=== PATIENT | female | born 1980 | race Asian ===

== ENCOUNTER 2019-05-15 09:48 | Emergency (ER) | payer OTHER ==
[~2019-05-15] VITALS: Ht 162.6 cm; Wt 47.2 kg
[2019-05-15] MEDS ORDERED: ITRA100 PO (10:07)
[2019-05-15] MEDS ORDERED: ESOM20 PO (10:07)
[2019-05-15] MEDS ORDERED: ACYC400 PO (10:08)
[2019-05-15] MEDS ORDERED: Bactrim Ds Tab1 EACH PO (10:08)
[2019-05-15 11:45] LABS: Alanine Aminotransfer (ALT/SGP 27 U/L (12-78); Albumin, Blood 3.8 g/dL (3.4-5.0); Alk Phos 60 U/L (50-136); Anion Gap 5 mmol/L (6-16); Aspartate Aminotrans (AST/SGOT 16 U/L (12-37); Bilirubin, Total 0.3 mg/dL (0.1-1.0); Blood Urea Nitrogen 15 mg/dL (8-24); CO2, Blood 33 mmol/L (21-32); Calcium, Blood 9.6 mg/dL (8.5-10.1); Chloride, Blood 106 mmol/L (98-108); Creatinine, Blood 0.65 mg/dL (0.40-1.00); Globulin, Blood 3.7 g/dL (2.2-4.0); Glomerular Filtration Rate >60 (60-); Glucose, Blood 101 mg/dL (70-99); Potassium, Blood 3.9 mmol/L (3.5-5.5); Sodium, Blood 144 mmol/L (136-145); Total Protein, Blood 7.5 g/dL (6.4-8.2)
[2019-05-15 12:14] LABS: International Normalized Ratio 0.96; Prothrombin Time Results 10.2 Sec (9.7-11.5)
== END 2019-05-15 13:26 | disposition home or self-care (01) ==
LOC: ER 09:48
PROVIDERS: Emergency Medicine
DX: D61.818 Other pancytopenia (principal); C95.90 Leukemia, unspecified not having achieved remission; Z91.048 Other nonmedicinal substance allergy status; Z88.8 Allergy status to other drugs, medicaments and biological substances; Z79.899 Other long term (current) drug therapy
CPT/HCPCS: 36415; 36430; 80053; 85025; 85384; 85610; 86900; 86901; 99283-25; P9035

== ENCOUNTER 2019-05-18 04:21 | Emergency (ER) | payer OTHER ==
[~2019-05-18] VITALS: Ht 162.6 cm; Wt 46.5 kg
[~2019-05-18 04:21] MED LIST: ACYC400 PO; Bactrim Ds Tab1 EACH PO; ESOM20 PO; ITRA100 PO
[2019-05-18] MEDS ORDERED: Percocet 5-3251 EACH PO (05:22)
== END 2019-05-18 05:54 | disposition home or self-care (01) ==
LOC: ER 04:21
DX: G89.29 Other chronic pain (principal); M54.9 Dorsalgia, unspecified; C95.90 Leukemia, unspecified not having achieved remission; Z88.8 Allergy status to other drugs, medicaments and biological substances; Z79.899 Other long term (current) drug therapy
CPT/HCPCS: 96372; 99283-25; J1170

== ENCOUNTER 2019-05-21 14:57 | Day surgery (SDC) | payer OTHER ==
[2019-05-21 09:33] LABS: Hematocrit 28.2 % (33.0-51.0); Hemoglobin 9.1 g/dL (11.5-16.0); Mean Corpuscular HGB 31.2 pg (26.0-34.0); Mean Corpuscular HGB Conc 32.3 g/dL (31.5-36.5); Mean Corpuscular Volume 97 fL (80-100); RDW Coefficient Variation 14.7 % (11.7-14.2); RDW Standard Deviation 51.7 fL (35.1-46.3); Red Blood Cell Count 2.92 M/mm3 (3.80-5.20)
[2019-05-21 09:39] LABS: Mean Platelet Volume 14.7 fL (9.1-12.4)
[2019-05-21 09:41] LABS: Platelet Count 6 K/mm3 (150-400)
[2019-05-21 10:25] LABS: BASOPHILS PERCENT MAN 0 % (0-2); BLASTS PERCENT MAN 22 % (0-0); EOSINOPHILS PERCENT MAN 0 % (0-6); LYMPHOCYTES ABSOLUTE MAN 4.06 K/mm3 (0.84-5.20); LYMPHOCYTES PERCENT MAN 70 % (21-46); MONOCYTES ABSOLUTE MAN 0.11 K/mm3 (0.16-1.47); MONOCYTES PERCENT MAN 2 % (4-13); NEUTROPHILS ABSOLUTE MAN 0.34 K/mm3 (1.96-9.15); SEG NEUTROPHILS PERCENT MAN 6 % (41-73); TOTAL CELLS COUNTED 100
[~2019-05-21 14:57] MED LIST changes: +Percocet 5-3251 EACH PO
== END 2019-05-21 17:25 | disposition home or self-care (01) ==
LOC: ATC 14:57 → EDSTATUS 14:58 → ATC 17:25
PROVIDERS: Internal Medicine Hematology & Oncology
PROC: 30233R1 Transfusion of Nonautologous Platelets into Peripheral Vein, Percutaneous Approach (ICD-10-PCS; principal; 2019-05-21)
DX: C92.02 Acute myeloblastic leukemia, in relapse (principal)
CPT/HCPCS: 36415; 36430; 85025; 86900; 86901; J7050; P9035

== ENCOUNTER 2019-06-07 11:27 | Inpatient (IN) | payer OTHER ==
[~2019-06-07] VITALS: Ht 162.6 cm; Wt 48.4 kg
[2019-06-07 12:38] LABS: International Normalized Ratio 1.04
[2019-06-07 12:40] LABS: Alanine Aminotransfer (ALT/SGP 24 U/L (12-78); Albumin, Blood 2.9 g/dL (3.4-5.0); Albumin/Globulin Ratio 0.9 (0.8-1.8); Alk Phos 55 U/L (50-136); Anion Gap 7 mmol/L (6-16); Aspartate Aminotrans (AST/SGOT 10 U/L (12-37); Bilirubin, Total 0.5 mg/dL (0.1-1.0); Blood Urea Nitrogen 11 mg/dL (8-24); Bun/Creatinine Ratio 17.1 (12.0-20.0); CO2, Blood 29 mmol/L (21-32); Calcium, Blood 8.7 mg/dL (8.5-10.1); Chloride, Blood 104 mmol/L (98-108); Creatinine, Blood 0.64 mg/dL (0.40-1.00); Globulin, Blood 3.4 g/dL (2.2-4.0); Glomerular Filtration Rate >60 (60-); Glucose, Blood 161 mg/dL (70-99); Potassium, Blood 3.5 mmol/L (3.5-5.5); Sodium, Blood 140 mmol/L (136-145); Total Protein, Blood 6.3 g/dL (6.4-8.2)
[2019-06-07 12:43] LABS: Hematocrit 23.1 % (33.0-51.0); Hemoglobin 7.8 g/dL (11.5-16.0); Mean Corpuscular HGB 29.7 pg (26.0-34.0); Mean Corpuscular HGB Conc 33.8 g/dL (31.5-36.5); RDW Coefficient Variation 14.9 % (11.7-14.2); RDW Standard Deviation 47.8 fL (35.1-46.3); Red Blood Cell Count 2.63 M/mm3 (3.80-5.20)
[2019-06-07 12:45] LABS: BASOPHILS PERCENT AUTO 0 % (0-2); EOSINOPHILS PERCENT AUTO 0 % (0-6); IMMATURE GRAN ABSOLUTE AUTO 0.01 K/mm3 (0.00-0.10); IMMATURE GRAN PERCENT AUTO 6 % (0-1); LYMPHOCYTES ABSOLUTE AUTO 0.07 K/mm3 (0.84-5.20); LYMPHOCYTES PERCENT AUTO 44 % (21-46); MONOCYTES ABSOLUTE AUTO 0.01 K/mm3 (0.16-1.47); MONOCYTES PERCENT AUTO 6 % (4-13); Mean Corpuscular Volume 88 fL (80-100); NEUTROPHILS ABSOLUTE AUTO 0.07 K/mm3 (1.96-9.15); NEUTROPHILS PERCENT AUTO 44 % (41-73); Platelet Count 31 K/mm3 (150-400)
[2019-06-07 12:47] LABS: White Blood Cell Count 0.16 K/mm3 (4.00-11.30)
[2019-06-07 13:20] LABS: Source, Urine Catheter
[2019-06-07 13:26] LABS: Bilirubin, Urine Neg (Neg); Blood, Urine 1+ (Neg); Glucose Qualitative, Urine Neg (Neg); Ketones, Urine Neg (Neg); Leukocyte Esterase, Urine Neg (Neg); Nitrite, Urine Neg (Neg); Protein, Urine Neg (Neg); Specific Gravity, Urine 1.015 (1.003-1.022); Urobilinogen, Urine NORM (Normal)
[2019-06-07 13:41] LABS: Appearance, Urine Clear (Clear); Color, Urine Yellow (P-Yellow)
[2019-06-07] MEDS ORDERED: DEXA4 PO (15:19)
[2019-06-07] MEDS ORDERED: NOXAFIL100 MG PO (15:19)
[2019-06-07] MEDS ORDERED: ONDA8 PO (15:19)
[2019-06-07] MEDS ORDERED: PROC5 PO (15:20)
[2019-06-07] MEDS ORDERED: LEVFLO500 PO (15:20)
[2019-06-07] MEDS ORDERED: DIBU30TO PR (15:22)
[2019-06-07] MEDS ORDERED: Senna Plus Tab1 EACH PO (15:23)
[2019-06-07 16:45] LABS: Bacteria Rare /hpf; Red Blood Cells, Urine 0-2 /hpf (0-2); Squamous Epithelial Cells Not Seen /hpf (Few)
--- NOTE | 2019-06-07 16:54 | NUR ---
ADMIT TO FLOOR ARRIVED TO FLOOR VIA STRETCHER ACCOMPANIED BY SPOUSE. ORIENTED TO ROOM. CALL LIGHT WITHIN REACH. BED LOW AND IN LOCKED POSITION.
--- NOTE | 2019-06-07 17:57 | NUR ---
DISCHARGE NOTE NEW ADMIT THIS P.M. FROM ED. CHEMO 2 DAYS AGO. ORIGINAL DX LEUKEMIA IN 2016 IN [place]. MOVED TO STATES TO OBTAIN TREATMENT. NEUTROPENIC PRECAUTIONS. EATING AND DRINKING WELL. OX4 AND INDEPENDENT IN ROOM. SCHEDULED FOR LABS AND POSSIBLE TRANSFUSIONS TOMORROW WITH DR. PIMENTEL. I CALLED DR. CARRASQUILLO OFFICE AND LEFT VM THAT PATIENT WAS AT [facility]. DENIES ANY PAIN. AWAITING CLINICAL TRIAL AT [facility] IN FIRST PART OF THIS MONTH.
[2019-06-08 05:11] LABS: Hemoglobin 6.3 g/dL (11.5-16.0); Mean Corpuscular HGB 29.9 pg (26.0-34.0); Mean Corpuscular HGB Conc 33.2 g/dL (31.5-36.5); Mean Corpuscular Volume 90 fL (80-100); Mean Platelet Volume 9.4 fL (9.1-12.4); RDW Coefficient Variation 14.9 % (11.7-14.2); RDW Standard Deviation 49.1 fL (35.1-46.3); Red Blood Cell Count 2.11 M/mm3 (3.80-5.20)
[2019-06-08 05:13] LABS: BASOPHILS PERCENT AUTO 0 % (0-2); EOSINOPHILS PERCENT AUTO 0 % (0-6); IMMATURE GRAN PERCENT AUTO 0 % (0-1); LYMPHOCYTES PERCENT AUTO 44 % (21-46); MONOCYTES ABSOLUTE AUTO 0.02 K/mm3 (0.16-1.47); MONOCYTES PERCENT AUTO 9 % (4-13); NEUTROPHILS ABSOLUTE AUTO 0.11 K/mm3 (1.96-9.15); NEUTROPHILS PERCENT AUTO 48 % (41-73)
[2019-06-08 05:15] LABS: Platelet Count 19 K/mm3 (150-400); White Blood Cell Count 0.23 K/mm3 (4.00-11.30)
[2019-06-08 05:38] LABS: Anion Gap 3 mmol/L (6-16); Blood Urea Nitrogen 9 mg/dL (8-24); Bun/Creatinine Ratio 13.8 (12.0-20.0); CO2, Blood 28 mmol/L (21-32); Chloride, Blood 108 mmol/L (98-108); Creatinine, Blood 0.65 mg/dL (0.40-1.00); Glomerular Filtration Rate >60 (60-); Glucose, Blood 100 mg/dL (70-99); Potassium, Blood 3.6 mmol/L (3.5-5.5); Sodium, Blood 139 mmol/L (136-145)
--- NOTE | 2019-06-08 07:21 | NUR ---
SHIFT SUMMARY PT A/O INDEPENDENT NO C/O PAIN. ORAL TEMP 103.0 MEDICATED C TYLENOL. HAD BEEN BUNDLED IN BLANKETS AND HEAT TURNED UP HIGH DUE TO C/O BEING COLD. UNCOVERED FROM BLANKETS AND TOOK OFF JACKET AND DRANK SOME ICE WATER. RECHECKED ORAL TEMP 99.8. SAID SHE WASN'T ABLE TO GET A LOT OF SLEEP T/O NIGHT. CALL LIGHT IN REACH.
--- NOTE | 2019-06-08 07:30 | NUR ---
PT QUITE PLEASANT COOP A/O. DENIES PAIN AT THIS TIME. H/R REG, NO MURMER NOTED. NO TELE. LUNGS CLEAR, RESP EASY, UNLABORED. ON R.A.. BT X4 ALST BM YEST. STATES NORMAL. VOIDS PER BATHROOM. INDEPENDANT IN ROOM.BED IN LOW POSITION, CALL LITE IN REACH, CALLS APPROP
--- NOTE | 2019-06-08 12:50 | NUR ---
CALLED DR MCDUFFIE STOPPING N/S AT [address] PRESTONED D/C NS IN FULL. DONE
--- NOTE | 2019-06-08 17:09 | NUR ---
PT PLEASANT TODAY. HUSB IN ROOM. QUITE PLEASANT ALSO. 1 U PRBC ADMIN. NO OTHER CONCERNSAT THIS TIME. INDEPENDANT IN ROOM. BED IN LOW POSITION, CALL LITE IN REACH, CALLS APPROP
[2019-06-09 05:12] LABS: Hematocrit 22.3 % (33.0-51.0); Hemoglobin 7.5 g/dL (11.5-16.0); Mean Corpuscular HGB 29.8 pg (26.0-34.0); Mean Corpuscular HGB Conc 33.6 g/dL (31.5-36.5); Mean Corpuscular Volume 89 fL (80-100); Mean Platelet Volume 9.3 fL (9.1-12.4); RDW Coefficient Variation 15.9 % (11.7-14.2); RDW Standard Deviation 51.5 fL (35.1-46.3); Red Blood Cell Count 2.52 M/mm3 (3.80-5.20)
[2019-06-09 05:16] LABS: White Blood Cell Count 0.28 K/mm3 (4.00-11.30)
[2019-06-09 05:19] LABS: Platelet Count 10 K/mm3 (150-400)
[2019-06-09 05:32] LABS: Anion Gap 6 mmol/L (6-16); Blood Urea Nitrogen 10 mg/dL (8-24); Bun/Creatinine Ratio 16.4 (12.0-20.0); CO2, Blood 27 mmol/L (21-32); Calcium, Blood 8.2 mg/dL (8.5-10.1); Chloride, Blood 109 mmol/L (98-108); Creatinine, Blood 0.61 mg/dL (0.40-1.00); Glomerular Filtration Rate >60 (60-); Glucose, Blood 107 mg/dL (70-99); Potassium, Blood 3.5 mmol/L (3.5-5.5); Sodium, Blood 142 mmol/L (136-145)
[2019-06-09 05:35] LABS: International Normalized Ratio 1.02; Prothrombin Time Results 10.8 Sec (9.7-11.5)
--- NOTE | 2019-06-09 05:41 | NUR ---
SHIFT SUMMARY: PT IS ALERT AND ORIENTED. PT IS CALM AND COOPERATIVE WITH CARE. PT CALLS APPROPRIATELY. PT IS INDEPENDENT IN THE ROOM. PT DENIES PAIN, NAUSEA, VOMITING, AND SOB. CRITICALY LOW PLATELET LEVELS, DROPPED OVERNIGHT, CALL TO DR. NDIAYE PENDING. PT SLEPT SOUNDLY THROUGHOUT THE NIGHT WHEN NOT DISTURBED. BED IN LOW POSITION, CALL LIGHT WITHIN REACH. WILL REPOR TO DAY NURSE.
--- NOTE | 2019-06-09 08:10 | NUR ---
PT PLEASANT COOP A/O TALKATIVE. INDEPENDANT IN ROOM. H/R REG, NO MURMER NOTED. NO TELE. LUNGS CLEAR, RESP EASY,UNLABORED. ON R/A. BT X4 LAST BM YEST. VOIDS INDEPENDANT IN ROOM. BED IN LOW POSITION, CALL LITE IN REACH, CALLS APPROP
--- NOTE | 2019-06-09 18:24 | NUR ---
PT REFUSED DINNER. WILL ATTEMPT LATER
--- NOTE | 2019-06-09 18:26 | NUR ---
PT RECEIVED ONE UNIT PLATELETTS TODAY. IS RUNNING ONE OF TWO UNITS OF PRBC. WILL PASS TO [facility] FOR LAST UNIT. PT PLEASANT TODAY, IS HER FAMILY. HAS BEEN UP TO WALK HALLS THIS AFT, TEMPS HAVE BEEN STABLE TODAY UNTIL JUST RECENTLY, THEY BEGAN TO CREEP UP. WILL GIVE TYLENOL. PT SECOND PORT OF IV APPEARS TO BE BLOCKED. TRIED TO FREE WITH NEW CAP AND ALSO HAD PICC LINE RN CHECK, NO IMPROVEMENT. NO OTHER CONCERNS AT THIS TIME. [facility], CALL LITE IN REACH, CALLS APPROP
--- NOTE | 2019-06-10 04:18 | NUR ---
SHIFT SUMMARY: 38 Y/O SLENDER FEMALE RESTED COMFORTABLY ALL SHIFT AFTER RECEIVING ONE UNIT PRBC AT BEGINNING OF SHIFT, SPOUSE AND TODDLER DAUGHTER AT SIDE BEGINNING SHIFT AND VERY SUPPORTIVE, DENIES PAIN OR NAUSEA, HAPPY AND COOPERATIVE, ABLE AMBULATE BATHROOM AND BACK WITH GAIT SLOW AND STEADY, NEUTROPENIC PRECAUTIONS INTACT, BED LOW POSITION, CALL LIGHT AT SIDE.
[2019-06-10 05:12] LABS: Hematocrit 30.8 % (33.0-51.0); Hemoglobin 10.3 g/dL (11.5-16.0); Mean Corpuscular HGB 29.4 pg (26.0-34.0); Mean Corpuscular HGB Conc 33.4 g/dL (31.5-36.5); Mean Corpuscular Volume 88 fL (80-100); Mean Platelet Volume 9.8 fL (9.1-12.4); RDW Coefficient Variation 15.4 % (11.7-14.2); RDW Standard Deviation 49.7 fL (35.1-46.3)
[2019-06-10 05:29] LABS: Alanine Aminotransfer (ALT/SGP 15 U/L (12-78); Albumin, Blood 2.6 g/dL (3.4-5.0); Albumin/Globulin Ratio 0.8 (0.8-1.8); Alk Phos 59 U/L (50-136); Anion Gap 5 mmol/L (6-16); Aspartate Aminotrans (AST/SGOT 7 U/L (12-37); Bilirubin, Total 0.8 mg/dL (0.1-1.0); Blood Urea Nitrogen 16 mg/dL (8-24); CO2, Blood 28 mmol/L (21-32); Calcium, Blood 8.2 mg/dL (8.5-10.1); Chloride, Blood 111 mmol/L (98-108); Creatinine, Blood 0.57 mg/dL (0.40-1.00); Globulin, Blood 3.3 g/dL (2.2-4.0); Glomerular Filtration Rate >60 (60-); Glucose, Blood 106 mg/dL (70-99); Potassium, Blood 3.7 mmol/L (3.5-5.5); Sodium, Blood 144 mmol/L (136-145); Total Protein, Blood 5.9 g/dL (6.4-8.2)
[2019-06-10 05:34] LABS: BASOPHILS PERCENT AUTO 0 % (0-2); EOSINOPHILS PERCENT AUTO 0 % (0-6); IMMATURE GRAN ABSOLUTE AUTO 0.03 K/mm3 (0.00-0.10); IMMATURE GRAN PERCENT AUTO 10 % (0-1); LYMPHOCYTES ABSOLUTE AUTO 0.09 K/mm3 (0.84-5.20); LYMPHOCYTES PERCENT AUTO 29 % (21-46); MONOCYTES ABSOLUTE AUTO 0.02 K/mm3 (0.16-1.47); MONOCYTES PERCENT AUTO 7 % (4-13); NEUTROPHILS ABSOLUTE AUTO 0.17 K/mm3 (1.96-9.15); NEUTROPHILS PERCENT AUTO 55 % (41-73)
[2019-06-10 05:35] LABS: Platelet Count 29 K/mm3 (150-400); White Blood Cell Count 0.31 K/mm3 (4.00-11.30)
[2019-06-10 05:49] LABS: BAND PERCENT MAN 7 % (0-8); BASOPHILS PERCENT MAN 0 % (0-2); EOSINOPHILS PERCENT MAN 0 % (0-6); LYMPHOCYTES ABSOLUTE MAN 0.08 K/mm3 (0.84-5.20); LYMPHOCYTES PERCENT MAN 29 % (21-46); METAMYELOCYTE PERCENT MAN 2 % (0-0); MONOCYTES PERCENT MAN 2 % (4-13); NEUTROPHILS ABSOLUTE MAN 0.19 K/mm3 (1.96-9.15); PROMYELOCYTE PERCENT MAN 1 % (0-0); SEG NEUTROPHILS PERCENT MAN 57 % (41-73); TOTAL CELLS COUNTED 82
--- NOTE | 2019-06-10 12:19 | NUR ---
DISCHARGE NOTE IV DC'D WNL. PICC LINE LEFT IN PLACE PT UNDERGOING [facility]. DISCHARGE MEDICATIONS FAXED TO PREFERED PHARMACY. PERSONAL POSSESSIONS GATHERED. PT DRESSED SELF IN PERSONAL CLOTHING. PT PROVIDED WITH HARDCOPY AND VERBAL INSTRUCTIONS FOR DISCHARGE RE: DIAGNOSES, MEDICATIONS, AND FOLLOW UP APPOINTMENTS. PT & FAMILY HAD NO FURTHER QUESTIONS. PT LEFT THE FLOOR ACCOMPANIED BY FAMILY.
== END 2019-06-10 12:03 | disposition home or self-care (01) | DRG 809 ==
LOC: ER 11:27 → MEDS 14:48 → ERHOLD 14:48 → MEDS 16:37 → ENPENDDIS 06-10 11:38 → MEDS 06-10 12:03
PROVIDERS: Internal Medicine; Physician Assistant; ADMIT Hospitalist
PROC: 30233N1 Transfusion of Nonautologous Red Blood Cells into Peripheral Vein, Percutaneous Approach (ICD-10-PCS; principal; 2019-06-09)
PROC: 30233R1 Transfusion of Nonautologous Platelets into Peripheral Vein, Percutaneous Approach (ICD-10-PCS; 2019-06-09)
DX: D70.1 Agranulocytosis secondary to cancer chemotherapy (principal); C95.92 Leukemia, unspecified, in relapse; Z94.81 Bone marrow transplant status; Z94.84 Stem cells transplant status; T45.1X5A Adverse effect of antineoplastic and immunosuppressive drugs, initial encounter; R50.81 Fever presenting with conditions classified elsewhere; Y92.9 Unspecified place or not applicable; D69.6 Thrombocytopenia, unspecified; K21.9 Gastro-esophageal reflux disease without esophagitis
CPT/HCPCS: 36415; 36430; 71046; 80048; 80053; 81001; 83605; 85007; 85025; 85027; 85384; 85610; 85730; 86850; 86900; 86901; 86923; 87040; 87086; 93005; 93010; 96361; 96365; 96367; 99285-25; A9270; C9113; J0692; J3480; J7030; J7050; P9016; P9035; P9040; P9612

== ENCOUNTER 2019-06-22 11:17 | Day surgery (SDC) | payer OTHER ==
[2019-06-22 09:54] LABS: BASOPHILS PERCENT AUTO 0 % (0-2); EOSINOPHILS ABSOLUTE AUTO 0.01 K/mm3 (0.00-0.68); EOSINOPHILS PERCENT AUTO 1 % (0-6); Hematocrit 27.3 % (33.0-51.0); Hemoglobin 8.6 g/dL (11.5-16.0); IMMATURE GRAN ABSOLUTE AUTO 0.05 K/mm3 (0.00-0.10); IMMATURE GRAN PERCENT AUTO 4 % (0-1); LYMPHOCYTES PERCENT AUTO 16 % (21-46); MONOCYTES ABSOLUTE AUTO 0.08 K/mm3 (0.16-1.47); MONOCYTES PERCENT AUTO 6 % (4-13); Mean Corpuscular HGB 29.1 pg (26.0-34.0); Mean Corpuscular HGB Conc 31.5 g/dL (31.5-36.5); Mean Platelet Volume 8.9 fL (9.1-12.4); NEUTROPHILS ABSOLUTE AUTO 0.94 K/mm3 (1.96-9.15); NEUTROPHILS PERCENT AUTO 73 % (41-73); RDW Standard Deviation 47.4 fL (35.1-46.3); Red Blood Cell Count 2.96 M/mm3 (3.80-5.20); White Blood Cell Count 1.28 K/mm3 (4.00-11.30)
[2019-06-22 10:20] LABS: Mean Corpuscular Volume 92 fL (80-100)
[2019-06-22 10:21] LABS: Platelet Count 7 K/mm3 (150-400)
[~2019-06-22 11:17] MED LIST changes: +DEXA4 PO; +DIBU30TO PR; +LEVFLO500 PO; +NOXAFIL100 MG PO; +ONDA8 PO; +PROC5 PO; +Senna Plus Tab1 EACH PO
== END 2019-06-22 15:02 | disposition home or self-care (01) ==
LOC: ATC 11:17 → EDSTATUS 11:18 → ATC 15:02
PROVIDERS: Internal Medicine Hematology & Oncology
DX: C92.02 Acute myeloblastic leukemia, in relapse (principal); C91.02 Acute lymphoblastic leukemia, in relapse; D61.818 Other pancytopenia
CPT/HCPCS: 36415; 36430; 85025; J7050; P9035

== ENCOUNTER 2019-06-26 11:00 | Day surgery (SDC) | payer OTHER | END 2019-06-26 11:30 | disposition home or self-care (01) | LOC: ATC 11:00 | DX: C92.02 Acute myeloblastic leukemia, in relapse (principal); Z79.899 Other long term (current) drug therapy; Z91.048 Other nonmedicinal substance allergy status | CPT/HCPCS: 99211 ==

== ENCOUNTER 2019-08-07 13:13 | Day surgery (SDC) | payer OTHER ==
[2019-08-06 15:58] LABS: Hematocrit 21.8 % (33.0-51.0); Hemoglobin 7.2 g/dL (11.5-16.0); Mean Corpuscular HGB 29.4 pg (26.0-34.0); Mean Corpuscular Volume 89 fL (80-100); Mean Platelet Volume 11.1 fL (9.1-12.4); RDW Coefficient Variation 13.1 % (11.7-14.2); Red Blood Cell Count 2.45 M/mm3 (3.80-5.20)
[2019-08-06 16:04] LABS: Platelet Count 7 K/mm3 (150-400); White Blood Cell Count 0.57 K/mm3 (4.00-11.30)
[2019-08-06 16:48] LABS: BAND PERCENT MAN 2 % (0-8); BASOPHILS PERCENT MAN 0 % (0-2); EOSINOPHILS ABSOLUTE MAN 0.02 K/mm3 (0.00-0.68); EOSINOPHILS PERCENT MAN 4 % (0-6); LYMPHOCYTES ABSOLUTE MAN 0.38 K/mm3 (0.84-5.20); LYMPHOCYTES PERCENT MAN 68 % (21-46); MONOCYTES ABSOLUTE MAN 0.05 K/mm3 (0.16-1.47); MONOCYTES PERCENT MAN 10 % (4-13); SEG NEUTROPHILS PERCENT MAN 16 % (41-73); TOTAL CELLS COUNTED 50
== END 2019-08-07 21:57 | disposition home or self-care (01) ==
LOC: ATC 13:13 → EDSTATUS 13:14 → MEDS 13:23 → ATC 21:57
PROVIDERS: Internal Medicine Hematology & Oncology
DX: C91.02 Acute lymphoblastic leukemia, in relapse (principal); D61.818 Other pancytopenia; Z88.8 Allergy status to other drugs, medicaments and biological substances; Z79.899 Other long term (current) drug therapy
CPT/HCPCS: 36415; 36430; 85025; 86850; 86900; 86901; 86923; J7050; P9016; P9035; Q0163

== ENCOUNTER 2019-08-21 10:38 | Day surgery (SDC) | payer OTHER | END 2019-08-21 11:07 | disposition home or self-care (01) | LOC: ATC 10:38 | DX: Z45.2 Encounter for adjustment and management of vascular access device (principal); C92.02 Acute myeloblastic leukemia, in relapse; Z79.899 Other long term (current) drug therapy; Z91.048 Other nonmedicinal substance allergy status; Z79.2 Long term (current) use of antibiotics | CPT/HCPCS: 99211 ==

== ENCOUNTER 2019-08-22 02:44 | Emergency (ER) | payer OTHER ==
[~2019-08-22] VITALS: Ht 152.4 cm; Wt 48.0 kg
[2019-08-22 03:10] LABS: Calcium, Ionized (POC) 1.24 mmol/L (1.10-1.46); Chloride (POC) 103 mmol/L (98-108); Creatinine (POC) 0.7 mg/dL (0.6-1.0); Glucose (ISTAT POC) 129 mg/dL (70-99); Hemoglobin (POC) 8.2 g/dL (12.0-16.0); Potassium (POC) 3.3 mmol/L (3.5-5.5); Sodium (POC) 142 mmol/L (135-148); Total CO2 (POC) 28 mmol/L (21-32)
[2019-08-22 03:21] LABS: BASOPHILS ABSOLUTE AUTO 0.01 K/mm3 (0.00-0.23); BASOPHILS PERCENT AUTO 0 % (0-2); EOSINOPHILS ABSOLUTE AUTO 0.03 K/mm3 (0.00-0.68); EOSINOPHILS PERCENT AUTO 1 % (0-6); Hematocrit 27.3 % (33.0-51.0); Hemoglobin 8.9 g/dL (11.5-16.0); IMMATURE GRAN PERCENT AUTO 0 % (0-1); LYMPHOCYTES ABSOLUTE AUTO 1.21 K/mm3 (0.84-5.20); LYMPHOCYTES PERCENT AUTO 50 % (21-46); MONOCYTES ABSOLUTE AUTO 0.29 K/mm3 (0.16-1.47); MONOCYTES PERCENT AUTO 12 % (4-13); Mean Corpuscular HGB 30.5 pg (26.0-34.0); Mean Corpuscular HGB Conc 32.6 g/dL (31.5-36.5); Mean Corpuscular Volume 94 fL (80-100); Mean Platelet Volume 10.2 fL (9.1-12.4); NEUTROPHILS PERCENT AUTO 37 % (41-73); RDW Coefficient Variation 15.7 % (11.7-14.2); RDW Standard Deviation 44.6 fL (35.1-46.3); Red Blood Cell Count 2.92 M/mm3 (3.80-5.20); White Blood Cell Count 2.44 K/mm3 (4.00-11.30)
[2019-08-22 03:24] LABS: Platelet Count 20 K/mm3 (150-400)
[2019-08-22 03:41] LABS: Alanine Aminotransfer (ALT/SGP 25 U/L (12-78); Albumin, Blood 4.2 g/dL (3.4-5.0); Alk Phos 95 U/L (50-136); Anion Gap 6 mmol/L (6-16); Aspartate Aminotrans (AST/SGOT 19 U/L (12-37); Bilirubin, Total 0.6 mg/dL (0.1-1.0); Blood Urea Nitrogen 18 mg/dL (8-24); Bun/Creatinine Ratio 27.8 (12.0-20.0); CO2, Blood 30 mmol/L (21-32); Calcium, Blood 9.6 mg/dL (8.5-10.1); Chloride, Blood 107 mmol/L (98-108); Creatinine, Blood 0.65 mg/dL (0.40-1.00); Globulin, Blood 2.1 g/dL (2.2-4.0); Glomerular Filtration Rate >60 (60-); Glucose, Blood 127 mg/dL (70-99); Potassium, Blood 3.3 mmol/L (3.5-5.5); Sodium, Blood 143 mmol/L (136-145); Total Protein, Blood 6.3 g/dL (6.4-8.2)
== END 2019-08-22 05:32 | disposition home or self-care (01) ==
LOC: ER 02:44
PROVIDERS: Emergency Medicine
DX: N39.0 Urinary tract infection, site not specified (principal); E86.0 Dehydration; Z91.048 Other nonmedicinal substance allergy status; Z79.899 Other long term (current) drug therapy
CPT/HCPCS: 80047; 80053; 83605; 85014; 85025; 87040; 93005; 93010; 96360; 99283-25; J7030

== ENCOUNTER 2019-11-13 20:09 | Emergency (ER) | payer OTHER ==
[~2019-11-13] VITALS: Ht 165.1 cm; Wt 49.9 kg
[2019-11-13 21:26] LABS: BASOPHILS ABSOLUTE AUTO 0.01 K/mm3 (0.00-0.23); BASOPHILS PERCENT AUTO 0 % (0-2); EOSINOPHILS ABSOLUTE AUTO 0.08 K/mm3 (0.00-0.68); EOSINOPHILS PERCENT AUTO 3 % (0-6); Hematocrit 38.6 % (33.0-51.0); Hemoglobin 12.5 g/dL (11.5-16.0); IMMATURE GRAN ABSOLUTE AUTO 0.01 K/mm3 (0.00-0.10); IMMATURE GRAN PERCENT AUTO 0 % (0-1); LYMPHOCYTES ABSOLUTE AUTO 0.84 K/mm3 (0.84-5.20); LYMPHOCYTES PERCENT AUTO 35 % (21-46); MONOCYTES ABSOLUTE AUTO 0.29 K/mm3 (0.16-1.47); MONOCYTES PERCENT AUTO 12 % (4-13); Mean Corpuscular HGB Conc 32.4 g/dL (31.5-36.5); Mean Corpuscular Volume 105 fL (80-100); Mean Platelet Volume 11.1 fL (9.1-12.4); NEUTROPHILS ABSOLUTE AUTO 1.18 K/mm3 (1.96-9.15); NEUTROPHILS PERCENT AUTO 49 % (41-73); Platelet Count 65 K/mm3 (150-400); RDW Coefficient Variation 13.4 % (11.7-14.2); RDW Standard Deviation 52.1 fL (35.1-46.3); Red Blood Cell Count 3.68 M/mm3 (3.80-5.20); White Blood Cell Count 2.41 K/mm3 (4.00-11.30)
[2019-11-13 21:44] LABS: Alanine Aminotransfer (ALT/SGP 30 U/L (12-78); Albumin, Blood 4.7 g/dL (3.4-5.0); Albumin/Globulin Ratio 1.7 (0.8-1.8); Alk Phos 95 U/L (50-136); Anion Gap 6 mmol/L (6-16); Aspartate Aminotrans (AST/SGOT 25 U/L (12-37); Bilirubin, Total 0.2 mg/dL (0.1-1.0); Blood Urea Nitrogen 14 mg/dL (8-24); Bun/Creatinine Ratio 25.2 (12.0-20.0); CO2, Blood 30 mmol/L (21-32); Calcium, Blood 9.5 mg/dL (8.5-10.1); Chloride, Blood 106 mmol/L (98-108); Creatinine, Blood 0.56 mg/dL (0.40-1.00); Globulin, Blood 2.8 g/dL (2.2-4.0); Glomerular Filtration Rate >60 (60-); Glucose, Blood 104 mg/dL (70-99); Sodium, Blood 142 mmol/L (136-145); Total Protein, Blood 7.5 g/dL (6.4-8.2)
[2019-11-13] MEDS ORDERED: AMOX875 (22:01)
[2019-11-13 22:13] LABS: Source, Urine Clean Catch
[2019-11-13 22:16] LABS: Appearance, Urine Clear (Clear); Bilirubin, Urine Neg (Neg); Blood, Urine Neg (Neg); Color, Urine Yellow (P-Yellow); Glucose Qualitative, Urine Neg (Neg); Ketones, Urine Neg (Neg); Leukocyte Esterase, Urine 1+ (Neg); Nitrite, Urine Neg (Neg); Protein, Urine Neg (Neg); Urobilinogen, Urine NORM (Normal)
[2019-11-13 22:21] LABS: Bacteria Mod /hpf; Red Blood Cells, Urine 0-2 /hpf (0-2); Squamous Epithelial Cells Not Seen /hpf (Few); White Blood Cells, Urine 0-2 /hpf (0-5)
== END 2019-11-13 23:47 | disposition home or self-care (01) ==
LOC: ER 20:09
PROVIDERS: Emergency Medicine
DX: R53.1 Weakness (principal); J32.9 Chronic sinusitis, unspecified; Z91.048 Other nonmedicinal substance allergy status; Z79.899 Other long term (current) drug therapy
CPT/HCPCS: 36415; 80053; 81001; 85025; 87086; 93005; 93010; 99283-25

== ENCOUNTER 2019-12-27 14:49 | Inpatient (IN) | payer OTHER ==
[~2019-12-27] VITALS: Ht 165.1 cm; Wt 48.3 kg
[~2019-12-27 14:49] MED LIST changes: +AMOX875
[2019-12-27 16:01] LABS: Hematocrit 35.9 % (33.0-51.0); Hemoglobin 11.7 g/dL (11.5-16.0); Mean Corpuscular HGB 33.4 pg (26.0-34.0); Mean Corpuscular HGB Conc 32.6 g/dL (31.5-36.5); Mean Corpuscular Volume 103 fL (80-100); Mean Platelet Volume 10.2 fL (9.1-12.4); Platelet Count 58 K/mm3 (150-400); RDW Coefficient Variation 13.8 % (11.7-14.2); RDW Standard Deviation 51.8 fL (35.1-46.3)
[2019-12-27 16:18] LABS: BAND PERCENT MAN 12 % (0-8); BASOPHILS ABSOLUTE MAN 0.04 K/mm3 (0.00-0.23); BASOPHILS PERCENT MAN 1 % (0-2); EOSINOPHILS PERCENT MAN 0 % (0-6); LYMPHOCYTES ABSOLUTE MAN 0.23 K/mm3 (0.84-5.20); LYMPHOCYTES PERCENT MAN 5 % (21-46); MONOCYTES ABSOLUTE MAN 0.09 K/mm3 (0.16-1.47); MONOCYTES PERCENT MAN 2 % (4-13); NEUTROPHILS ABSOLUTE MAN 4.23 K/mm3 (1.96-9.15); SEG NEUTROPHILS PERCENT MAN 80 % (41-73); TOTAL CELLS COUNTED 100
[2019-12-27 16:28] LABS: Source, Urine Clean Catch
[2019-12-27 16:33] LABS: Bilirubin, Urine Neg (Neg); Blood, Urine 1+ (Neg); Glucose Qualitative, Urine Neg (Neg); Ketones, Urine Neg (Neg); Leukocyte Esterase, Urine Neg (Neg); Nitrite, Urine Neg (Neg); Protein, Urine Neg (Neg); Specific Gravity, Urine 1.005 (1.003-1.022); Urobilinogen, Urine NORM (Normal); pH, Urine 6.5 (5.0-8.0)
[2019-12-27 16:37] LABS: Appearance, Urine Clear (Clear); Color, Urine Yellow (P-Yellow)
[2019-12-27 16:40] LABS: Bacteria Few /hpf; Red Blood Cells, Urine 0-2 /hpf (0-2); Squamous Epithelial Cells Rare /hpf (Few); White Blood Cells, Urine Not Seen /hpf (0-5)
[2019-12-27 17:01] LABS: Alanine Aminotransfer (ALT/SGP 22 U/L (12-78); Albumin, Blood 4.2 g/dL (3.4-5.0); Albumin/Globulin Ratio 1.4 (0.8-1.8); Alk Phos 70 U/L (50-136); Anion Gap 3 mmol/L (6-16); Aspartate Aminotrans (AST/SGOT 13 U/L (12-37); Bilirubin, Total 0.5 mg/dL (0.1-1.0); Blood Urea Nitrogen 8 mg/dL (8-24); Bun/Creatinine Ratio 15.4 (12.0-20.0); CO2, Blood 31 mmol/L (21-32); Calcium, Blood 9.3 mg/dL (8.5-10.1); Chloride, Blood 102 mmol/L (98-108); Creatinine, Blood 0.52 mg/dL (0.40-1.00); Globulin, Blood 3.1 g/dL (2.2-4.0); Glomerular Filtration Rate >60 (60-); Glucose, Blood 129 mg/dL (70-99); Potassium, Blood 3.4 mmol/L (3.5-5.5); Sodium, Blood 136 mmol/L (136-145); Total Protein, Blood 7.3 g/dL (6.4-8.2)
[2019-12-27 17:22] LABS: Adenovirus Not Detected (NOT DETECT); Bordetella pertussis Not Detected (NOT DETECT); Chlamydophila pneumoniae Not Detected (NOT DETECT); Coronavirus 229E Not Detected (NOT DETECT); Coronavirus HKU1 Not Detected (NOT DETECT); Coronavirus NL63 Not Detected (NOT DETECT); Coronavirus OC43 Not Detected (NOT DETECT); Human Metapneumovirus Not Detected (NOT DETECT); Human Rhinovirus/Enterovirus Not Detected (NOT DETECT); Influenza A Not Detected (NOT DETECT); Influenza A/2009-H1 Not Detected (NOT DETECT); Influenza A/H1 Not Detected (NOT DETECT); Influenza A/H3 Not Detected (NOT DETECT); Influenza B Not Detected (NOT DETECT); Mycoplasma pneumoniae Not Detected (NOT DETECT); Parainfluenza Virus 1 Not Detected (NOT DETECT); Parainfluenza Virus 2 Not Detected (NOT DETECT); Parainfluenza Virus 3 Not Detected (NOT DETECT); Parainfluenza Virus 4 Not Detected (NOT DETECT); Respiratory Syncytial Virus Not Detected (NOT DETECT)
[2019-12-27] MEDS ORDERED: CEFP200 PO (18:08)
[2019-12-28 05:32] LABS: Hematocrit 29.4 % (33.0-51.0); Hemoglobin 9.5 g/dL (11.5-16.0); Mean Corpuscular HGB 33.5 pg (26.0-34.0); Mean Corpuscular HGB Conc 32.3 g/dL (31.5-36.5); Mean Corpuscular Volume 104 fL (80-100); Mean Platelet Volume 11.1 fL (9.1-12.4); RDW Coefficient Variation 14.2 % (11.7-14.2); RDW Standard Deviation 53.4 fL (35.1-46.3); Red Blood Cell Count 2.84 M/mm3 (3.80-5.20); White Blood Cell Count 4.09 K/mm3 (4.00-11.30)
[2019-12-28 05:39] LABS: Platelet Count 48 K/mm3 (150-400)
--- NOTE | 2019-12-28 05:51 | NUR ---
SHIFT SUMMARY PT SLEEPING IN ROOM COMFORTABLY AT THIS TIME. NO ACUTE CHANGES IN STATUS SINCE ARRIVAL FROM ED. PT SLEPT WELL IN ROOM. RESP EVEN UNLABORED ON RA W/ SATS >92%. PT DENIED ANY CP OR SOB, DENIED ANY OTHER PAIN. PT INDEPENDENT IN ROOM. NS INFUSING IN PIV AT 100ML/HR. PT REMAINS HYPOTENSIVE, AND REPORTS HER NORMALN SBP RUNS IN THE 90'S. PT MAP REMAINED ABOVE 60 T/O NIGHT SINCE ARRIVAL. CALL LIGHT IN REACH, WILL GIVE BEDSIDE REPORT TO ONCOMING RN.
[2019-12-28 06:12] LABS: Alanine Aminotransfer (ALT/SGP 15 U/L (12-78); Albumin, Blood 2.9 g/dL (3.4-5.0); Albumin/Globulin Ratio 1.1 (0.8-1.8); Alk Phos 56 U/L (50-136); Anion Gap 6 mmol/L (6-16); Aspartate Aminotrans (AST/SGOT 11 U/L (12-37); Bilirubin, Total 0.3 mg/dL (0.1-1.0); Blood Urea Nitrogen 8 mg/dL (8-24); Bun/Creatinine Ratio 16.2 (12.0-20.0); CO2, Blood 27 mmol/L (21-32); Calcium, Blood 7.9 mg/dL (8.5-10.1); Chloride, Blood 111 mmol/L (98-108); Creatinine, Blood 0.49 mg/dL (0.40-1.00); Globulin, Blood 2.7 g/dL (2.2-4.0); Glomerular Filtration Rate >60 (60-); Glucose, Blood 99 mg/dL (70-99); Potassium, Blood 3.4 mmol/L (3.5-5.5); Sodium, Blood 144 mmol/L (136-145); Total Protein, Blood 5.6 g/dL (6.4-8.2)
--- NOTE | 2019-12-28 10:07 | NUR ---
ASSUMED CARE- PCU DAYSHIFT. PATIENT ALERT AND ORIENTED X4. RESP E/U ON ROOM AIR. HR NSR IN THE 70'S. DENIES PAIN. NO RASH NOTED (HEALING SKIN NOTED ON LEFT NECK). PATIENT INDEPENDENT IN ROOM. CALL LIGHT W/I REACH.
--- NOTE | 2019-12-28 18:36 | NUR ---
PCU DAY SHIFT SUMMARY AO THROUGHOUT SHIFT X4. RESPIRATIONS EVEN UNLABORED W/OCCASIONAL COUGH NO SPUTUM PRODUCTION. MAINTAINS >98% SPO2 ON RA. HR NORMAL SINUS TO SINUS TACH 90S TO 110 THROUGHOUT SHIFT WITH NO FURTHER CARDIAC EVENTS PER CHANNELER INSOLE. HYPOTENSION CORRECTED THROUGHOUT SHIFT. VSS. PATIENT IND. NO ACUTE CHANGES THROUGHOUT SHIFT. WILL CONTINUE TO MONITOR AND GIVE REPORT TO NOC SHIFT RN.
[2019-12-29 04:26] LABS: BASOPHILS ABSOLUTE AUTO 0.01 K/mm3 (0.00-0.23); BASOPHILS PERCENT AUTO 0 % (0-2); Hematocrit 31.8 % (33.0-51.0); Hemoglobin 10.5 g/dL (11.5-16.0); LYMPHOCYTES ABSOLUTE AUTO 0.47 K/mm3 (0.84-5.20); LYMPHOCYTES PERCENT AUTO 10 % (21-46); MONOCYTES ABSOLUTE AUTO 0.36 K/mm3 (0.16-1.47); MONOCYTES PERCENT AUTO 8 % (4-13); Mean Corpuscular HGB 33.1 pg (26.0-34.0); Mean Platelet Volume 10.8 fL (9.1-12.4); Platelet Count 63 K/mm3 (150-400); RDW Coefficient Variation 13.8 % (11.7-14.2); RDW Standard Deviation 50.8 fL (35.1-46.3); Red Blood Cell Count 3.17 M/mm3 (3.80-5.20)
[2019-12-29 04:31] LABS: EOSINOPHILS ABSOLUTE AUTO 0.06 K/mm3 (0.00-0.68); EOSINOPHILS PERCENT AUTO 1 % (0-6); IMMATURE GRAN ABSOLUTE AUTO 0.05 K/mm3 (0.00-0.10); IMMATURE GRAN PERCENT AUTO 1 % (0-1); Mean Corpuscular Volume 100 fL (80-100); NEUTROPHILS ABSOLUTE AUTO 3.65 K/mm3 (1.96-9.15); NEUTROPHILS PERCENT AUTO 79 % (41-73)
--- NOTE | 2019-12-29 05:30 | NUR ---
SHIFT SUMMARY PT RESTING IN ROOM COMFORTABLY AT THIS TIME. NO ACUTE CHANGES IN STATUS SINCE ARRIVAL FROM ED. PT REPORTS NOT SLEEPING AT ALL LAST NIGHT. RESP EVEN UNLABORED ON RA W/ SATS >92%. DENIED ANY SOB. PT REPORTED "UPSET STOMACH" AFTER TAKING ORAL ABX DURING NIGHT, DENIED NAUSEA.PT GIVEN SALTNIE CRACKERS TO HELP SETLE. PT REPORTED FEELING BETTER 30 MIN LATER. DENIED OTHER NEEDS. CALL LIGHT IN REACH. WILL GIVE BEDSIDE REPORT TO ONCOMING RN.
--- NOTE | 2019-12-29 07:26 | NUR ---
ASSUMED PATIENT CARE. PATIENT RESTING COMFORTABLY IN BED, NO SIGNS OF ACUTE DISTRESS.
[2019-12-29] MEDS ORDERED: Florastor250 MG PO (11:00)
[2019-12-29] MEDS ORDERED: LEVO750 PO (11:01)
[2019-12-29] MEDS ORDERED: SERT50 PO (11:03)
--- NOTE | 2019-12-29 13:00 | NUR ---
PATIENT AND FAMILY PROVIDED DISCHARGE INFORMATION REGARDING REASONS TO RETURN TO ED, FOLLOW-UP INSTRUCTIONS, AND INFORMATION REGARDING MEDICATIONS AND TAKING FULL ANTIBIOTICS COURSE. PATIENT AND FAMILY VERBALIZED UNDERSTANDING OF INSTRUCTIONS. NO SIGNS OF ACUTE DISTRESS.
== END 2019-12-29 12:30 | disposition home or self-care (01) | DRG 871 ==
LOC: ER 14:49 → PCU 14:50 → ER 19:08 → PCU 22:56
PROVIDERS: Emergency Medicine; Hospitalist; Physician Assistant; ADMIT Internal Medicine
DX: A41.9 Sepsis, unspecified organism (principal); J18.9 Pneumonia, unspecified organism; F33.1 Major depressive disorder, recurrent, moderate; C91.00 Acute lymphoblastic leukemia not having achieved remission; C83.50 Lymphoblastic (diffuse) lymphoma, unspecified site; D69.6 Thrombocytopenia, unspecified; K52.9 Noninfective gastroenteritis and colitis, unspecified; J32.4 Chronic pansinusitis; K21.9 Gastro-esophageal reflux disease without esophagitis; B02.9 Zoster without complications; E87.6 Hypokalemia
CPT/HCPCS: 0099U; 36415; 70486; 71046; 80053; 81001; 83605; 84145; 85025; 85027; 87040; 96365; 96366; 96367; 96375; 99285-25; A9270; A9270-GY; G0378; J0456; J0696; J1956; J7030; J7050

== ENCOUNTER 2020-03-09 15:36 | Inpatient (IN) | payer OTHER ==
[~2020-03-09] VITALS: Ht 160 cm; Wt 48.7 kg
[~2020-03-09 15:36] MED LIST changes: +CEFP200 PO; +Florastor250 MG PO; +LEVO750 PO; +SERT50 PO
[2020-03-09 16:47] LABS: Source, Urine Clean Catch
[2020-03-09 16:54] LABS: Bilirubin, Urine Neg (Neg); Blood, Urine Neg (Neg); Glucose Qualitative, Urine Neg (Neg); Ketones, Urine Neg (Neg); Leukocyte Esterase, Urine Neg (Neg); Nitrite, Urine Neg (Neg); Protein, Urine Neg (Neg); Urobilinogen, Urine NORM (Normal)
[2020-03-09 16:57] LABS: Appearance, Urine Clear (Clear); Color, Urine Yellow (P-Yellow)
[2020-03-09 17:16] LABS: Hematocrit 31.3 % (33.0-51.0); Hemoglobin 10.2 g/dL (11.5-16.0); Mean Corpuscular HGB 32.8 pg (26.0-34.0); Mean Corpuscular HGB Conc 32.6 g/dL (31.5-36.5); Mean Corpuscular Volume 101 fL (80-100); Mean Platelet Volume 10.4 fL (9.1-12.4); RDW Standard Deviation 51.5 fL (35.1-46.3); Red Blood Cell Count 3.11 M/mm3 (3.80-5.20); White Blood Cell Count 2.22 K/mm3 (4.00-11.30)
[2020-03-09 17:21] LABS: Platelet Count 22 K/mm3 (150-400)
[2020-03-09 17:28] LABS: Alanine Aminotransfer (ALT/SGP 27 U/L (12-78); Albumin, Blood 3.5 g/dL (3.4-5.0); Albumin/Globulin Ratio 1.2 (0.8-1.8); Alk Phos 74 U/L (50-136); Anion Gap 7 mmol/L (6-16); Aspartate Aminotrans (AST/SGOT 75 U/L (12-37); Bilirubin, Total 0.3 mg/dL (0.1-1.0); Blood Urea Nitrogen 13 mg/dL (8-24); Bun/Creatinine Ratio 21.7 (12.0-20.0); CO2, Blood 29 mmol/L (21-32); Calcium, Blood 9.2 mg/dL (8.5-10.1); Chloride, Blood 99 mmol/L (98-108); Glomerular Filtration Rate >60 (60-); Glucose, Blood 140 mg/dL (70-99); Potassium, Blood 3.9 mmol/L (3.5-5.5); Sodium, Blood 135 mmol/L (136-145); Total Protein, Blood 6.5 g/dL (6.4-8.2)
[2020-03-09 17:40] LABS: BAND PERCENT MAN 4 % (0-8); BASOPHILS ABSOLUTE MAN 0.04 K/mm3 (0.00-0.23); BASOPHILS PERCENT MAN 2 % (0-2); EOSINOPHILS ABSOLUTE MAN 0.02 K/mm3 (0.00-0.68); EOSINOPHILS PERCENT MAN 1 % (0-6); LYMPHOCYTES ABSOLUTE MAN 0.62 K/mm3 (0.84-5.20); LYMPHOCYTES PERCENT MAN 28 % (21-46); METAMYELOCYTE ABSOLUTE MAN 0.06 K/mm3 (0.00-0.00); METAMYELOCYTE PERCENT MAN 3 % (0-0); MONOCYTES PERCENT MAN 0 % (4-13); NEUTROPHILS ABSOLUTE MAN 1.46 K/mm3 (1.96-9.15); SEG NEUTROPHILS PERCENT MAN 62 % (41-73); TOTAL CELLS COUNTED 100
[2020-03-09] MEDS ORDERED: ASCO500 PO (19:23)
[2020-03-09] MEDS ORDERED: TURMERIC500 M2 PO (19:24)
[2020-03-09] MEDS ORDERED: BROMELAIN PO (19:24)
[2020-03-09] MEDS ORDERED: QUERCETIN PO (19:24)
[2020-03-09] MEDS ORDERED: Spirulina500 MG PO (19:24)
--- NOTE | 2020-03-09 22:05 | NUR ---
PATIENT ARRIVED TO ICU 14 VIA GURNEY FROM ED WITH DX OF SEPSIS AND PYELONEPHRITIS. PATIENT ABLE TO STAND AND TRANSFER TO BED WITHOUT DIFFICULTY. PLACED ON ICU MONITORS. PATIENT ANSWERING ADMIT HX QUESTIONS AND CORNELIA PO MEDICATIONS WITHOUT DIFFICULTY. HYPOTENSION, IV FLUIDS STARTED.
--- NOTE | 2020-03-09 23:23 | NUR ---
DOCTOR HOA NOTIFIED OF HYPOTENSION, PLAN TO CONTINUE WITH LR BOLUS X1L THEN RESTART AT 125/HR. PATIENT A&O WITH NO COMPLAINTS OF DIZZINESS
--- NOTE | 2020-03-10 03:03 | NUR ---
DOCTOR HOA NOTIFIED OF CONTINUED HYPOTENSION. PATIENT AWAKENS TO SLIGHT STIMULI WITH NO COMPLAINTS, AMB TO TOILET AND VOIDING CLEAR YELLOW URINE. LR 1L BOLUS ORDERED.
[2020-03-10 04:21] LABS: Hematocrit 24.7 % (33.0-51.0); Mean Corpuscular HGB 33.2 pg (26.0-34.0); Mean Corpuscular HGB Conc 32.4 g/dL (31.5-36.5); Mean Corpuscular Volume 103 fL (80-100); Mean Platelet Volume 10.7 fL (9.1-12.4); RDW Standard Deviation 53.1 fL (35.1-46.3); Red Blood Cell Count 2.41 M/mm3 (3.80-5.20)
[2020-03-10 04:25] LABS: Platelet Count 15 K/mm3 (150-400)
[2020-03-10 04:34] LABS: Anion Gap 4 mmol/L (6-16); Blood Urea Nitrogen 11 mg/dL (8-24); Bun/Creatinine Ratio 22.2 (12.0-20.0); CO2, Blood 29 mmol/L (21-32); Calcium, Blood 8.3 mg/dL (8.5-10.1); Chloride, Blood 111 mmol/L (98-108); Glomerular Filtration Rate >60 (60-); Glucose, Blood 97 mg/dL (70-99); Potassium, Blood 3.6 mmol/L (3.5-5.5); Sodium, Blood 144 mmol/L (136-145)
[2020-03-10 05:39] LABS: BAND PERCENT MAN 10 % (0-8); BASOPHILS PERCENT MAN 0 % (0-2); EOSINOPHILS ABSOLUTE MAN 0.02 K/mm3 (0.00-0.68); EOSINOPHILS PERCENT MAN 2 % (0-6); LYMPHOCYTES % ATYPICAL MANUAL 4 % (0-0); LYMPHOCYTES PERCENT MAN 50 % (21-46); MONOCYTES PERCENT MAN 8 % (4-13); MYELOCYTE ABSOLUTE MAN 0.02 K/mm3 (0.00-0.00); MYELOCYTE PERCENT MAN 2 % (0-0); NEUTROPHILS ABSOLUTE MAN 0.44 K/mm3 (1.96-9.15); SEG NEUTROPHILS PERCENT MAN 24 % (41-73); TOTAL CELLS COUNTED 50
--- NOTE | 2020-03-10 05:47 | NUR ---
SUMMARY PATIENT RESTING QUIETLY, AWAKENS TO SLIGHT STIMULI WITH NO COMPLAINTS. UP TO TOILET TO VOID WITHOUT DIFFICULTY. HYPOTENSION CONTINUES, REQUIRING LR BOLUS DURING THE NIGHT TO KEEP MAP > 60.
--- NOTE | 2020-03-10 07:48 | NUR ---
PT COMPLAINS OF "KIDNEY" PAIN 03/16. MED WITH TYLENOL 650 MG PO X 1-SEE EMAR. SBP TRENDING 90-110'S. PT IS HOPEFUL THAT SHE CAN GO HOME TODAY.
--- NOTE | 2020-03-10 10:30 | NUR ---
AFTER PROPER CHECKS AND ID, PLATELET PHARESIS INITIATED. PT PRE-MED WITH BENADRYL 25 MG PO X 1.
--- NOTE | 2020-03-10 10:45 | NUR ---
PLATELET PHARESIS COMPLETED-TOLERATED WELL.
--- NOTE | 2020-03-10 12:48 | NUR ---
PT TOLERATED SHOWER WELL. NO COMPLAINTS AT THIS TIME. REPORT PHONED TO CASEY AARON IN PREP TO TRANSFER PT TO ROOM 229.
--- NOTE | 2020-03-10 14:17 | NUR ---
PT ARRIVED TO ROOM 229 FROM ICU VIA W/C AT APPROX. 1300. INDEPENDENT IN ROOM. DENIES PAIN OR NAUSEA. ATE HER LUNCH AFTER ARRIVAL. REPORTS FEELING COLD.
--- NOTE | 2020-03-10 15:34 | NUR ---
SHIFT SUMMARY PT HAD HAD NO CHANGED SINCE ARRIVAL TO FLOOR. INDEPENDENT IN ROOM. DENIES PAIN OR NAUSEA.
--- NOTE | 2020-03-10 16:43 | NUR ---
Initial spiritual care note: Dodie is a angle young woman who tells me seeing her dtr grow up is what keeps her fighting this patrick. She is non-holiness, but appeared to enjoy talking about her beliefs. I facilitated conversation to flesh out her spirituality. This went really well. Dodie appeared comforted and thanked me for visit. I will remain available.
[2020-03-11 04:42] LABS: BASOPHILS PERCENT AUTO 0 % (0-2); EOSINOPHILS ABSOLUTE AUTO 0.04 K/mm3 (0.00-0.68); EOSINOPHILS PERCENT AUTO 3 % (0-6); Hemoglobin 8.7 g/dL (11.5-16.0); IMMATURE GRAN ABSOLUTE AUTO 0.01 K/mm3 (0.00-0.10); IMMATURE GRAN PERCENT AUTO 1 % (0-1); LYMPHOCYTES ABSOLUTE AUTO 0.42 K/mm3 (0.84-5.20); LYMPHOCYTES PERCENT AUTO 35 % (21-46); MONOCYTES ABSOLUTE AUTO 0.12 K/mm3 (0.16-1.47); MONOCYTES PERCENT AUTO 10 % (4-13); Mean Corpuscular HGB Conc 32.2 g/dL (31.5-36.5); Mean Corpuscular Volume 102 fL (80-100); Mean Platelet Volume 10.3 fL (9.1-12.4); NEUTROPHILS ABSOLUTE AUTO 0.62 K/mm3 (1.96-9.15); NEUTROPHILS PERCENT AUTO 51 % (41-73); RDW Coefficient Variation 13.9 % (11.7-14.2); RDW Standard Deviation 52.6 fL (35.1-46.3); Red Blood Cell Count 2.64 M/mm3 (3.80-5.20); White Blood Cell Count 1.21 K/mm3 (4.00-11.30)
[2020-03-11 04:47] LABS: Platelet Count 46 K/mm3 (150-400)
[2020-03-11 04:55] LABS: Anion Gap 5 mmol/L (6-16); Blood Urea Nitrogen 8 mg/dL (8-24); Bun/Creatinine Ratio 16.3 (12.0-20.0); CO2, Blood 32 mmol/L (21-32); Calcium, Blood 9.6 mg/dL (8.5-10.1); Chloride, Blood 108 mmol/L (98-108); Creatinine, Blood 0.49 mg/dL (0.40-1.00); Glomerular Filtration Rate >60 (60-); Glucose, Blood 119 mg/dL (70-99); Potassium, Blood 3.5 mmol/L (3.5-5.5); Sodium, Blood 145 mmol/L (136-145)
--- NOTE | 2020-03-11 05:14 | NUR ---
SHIFT SUMMARY: PT COMPLAINS OF PAIN IN RIGHT FLANK ONCE THIS SHIFT AND MEDICATED WITH TYLENOL PER EMAR. PT SPIKED ONE TEMPERATURE THIS SHIFT OF 100.5. TEMP IS NOW 98.0. PT INDEPENDENT IN ROOM. VOIDING WELL. ABX AND FLUIDS INFUSING PER EMAR. PT EAGER TO DISCHARGE HOME.
[2020-03-11] MEDS ORDERED: CEPH500 PO (10:09)
[2020-03-11] MEDS ORDERED: ACET325 PO (10:09)
--- NOTE | 2020-03-11 11:34 | NUR ---
DISCHARGE PT EDUCATED ON AND RECEIVED PRINTED DISCHARGE INSTRUCTIONS AND VERBALIZED AN UNDERSTANDING. RX FOR KEFLEX FAXED OVER TO [facility] PER PT REQUEST. PIPPA CARLIN'Chelsey. PT WAITING FOR FAMILY MEMBER TO TAKE PT HOME. PT GATHERED ALL PERSONAL BELONGINGS.
== END 2020-03-11 11:41 | disposition home or self-care (01) | DRG 872 ==
LOC: ER 15:36 → ICUW 20:26 → SURS 03-10 12:53
PROVIDERS: Internal Medicine; Physician Assistant; ADMIT Family Medicine
PROC: 30233N1 Transfusion of Nonautologous Red Blood Cells into Peripheral Vein, Percutaneous Approach (ICD-10-PCS; principal; 2020-03-10)
DX: A41.9 Sepsis, unspecified organism (principal); N12 Tubulo-interstitial nephritis, not specified as acute or chronic; D61.818 Other pancytopenia; C91.00 Acute lymphoblastic leukemia not having achieved remission; Z94.81 Bone marrow transplant status; Z94.84 Stem cells transplant status; E87.1 Hypo-osmolality and hyponatremia; R65.20 Severe sepsis without septic shock; Z92.21 Personal history of antineoplastic chemotherapy
CPT/HCPCS: 36415; 71045; 74177; 80048; 80053; 81003; 83605; 85025; 86900; 86901; 96361; 96365-59; 96375; 99285-25; A9270; A9270-GY; J0696; J2543; J7030; J7120; P9037; Q0163; Q9967

== ENCOUNTER 2020-03-14 08:17 | Emergency (ER) | payer OTHER ==
[~2020-03-14] VITALS: Ht 172.7 cm; Wt 52.2 kg
[~2020-03-14 08:17] MED LIST changes: +ACET325 PO; +ASCO500 PO; +BROMELAIN PO; +CEPH500 PO; +QUERCETIN PO; +Spirulina500 MG PO; +TURMERIC500 M2 PO
[2020-03-14 09:30] LABS: Hematocrit 30.5 % (33.0-51.0); Hemoglobin 9.8 g/dL (11.5-16.0); Mean Corpuscular HGB Conc 32.1 g/dL (31.5-36.5); Mean Corpuscular Volume 103 fL (80-100); Mean Platelet Volume 11.2 fL (9.1-12.4); RDW Coefficient Variation 13.5 % (11.7-14.2); RDW Standard Deviation 51.8 fL (35.1-46.3); Red Blood Cell Count 2.97 M/mm3 (3.80-5.20); White Blood Cell Count 2.47 K/mm3 (4.00-11.30)
[2020-03-14 09:48] LABS: Alanine Aminotransfer (ALT/SGP 31 U/L (12-78); Albumin, Blood 3.6 g/dL (3.4-5.0); Albumin/Globulin Ratio 1.1 (0.8-1.8); Alk Phos 74 U/L (50-136); Anion Gap 7 mmol/L (6-16); Aspartate Aminotrans (AST/SGOT 38 U/L (12-37); Bilirubin, Total 0.2 mg/dL (0.1-1.0); Blood Urea Nitrogen 15 mg/dL (8-24); Bun/Creatinine Ratio 25.7 (12.0-20.0); CO2, Blood 31 mmol/L (21-32); Calcium, Blood 9.4 mg/dL (8.5-10.1); Chloride, Blood 104 mmol/L (98-108); Creatinine, Blood 0.58 mg/dL (0.40-1.00); Globulin, Blood 3.2 g/dL (2.2-4.0); Glomerular Filtration Rate >60 (60-); Glucose, Blood 101 mg/dL (70-99); Lactate Dehydrogenase (Ld),Bld 608 U/L (100-240); Potassium, Blood 3.8 mmol/L (3.5-5.5); Sodium, Blood 142 mmol/L (136-145); Total Protein, Blood 6.8 g/dL (6.4-8.2)
[2020-03-14 09:50] LABS: Platelet Count 33 K/mm3 (150-400)
[2020-03-14 09:56] LABS: Source, Urine Catheter
[2020-03-14 10:02] LABS: Bilirubin, Urine Neg (Neg); Blood, Urine Neg (Neg); Glucose Qualitative, Urine Neg (Neg); Ketones, Urine Neg (Neg); Leukocyte Esterase, Urine Neg (Neg); Nitrite, Urine Neg (Neg); Protein, Urine Neg (Neg); Specific Gravity, Urine 1.015 (1.003-1.022); Urobilinogen, Urine NORM (Normal); pH, Urine 6.5 (5.0-8.0)
[2020-03-14 10:08] LABS: Appearance, Urine Clear (Clear); Color, Urine Yellow (P-Yellow)
[2020-03-14 10:09] LABS: BAND PERCENT MAN 1 % (0-8); BASOPHILS ABSOLUTE MAN 0.02 K/mm3 (0.00-0.23); BASOPHILS PERCENT MAN 1 % (0-2); BLASTS PERCENT MAN 4 % (0-0); EOSINOPHILS PERCENT MAN 0 % (0-6); LYMPHOCYTES % ATYPICAL MANUAL 2 % (0-0); LYMPHOCYTES ABSOLUTE MAN 1.23 K/mm3 (0.84-5.20); LYMPHOCYTES PERCENT MAN 48 % (21-46); METAMYELOCYTE ABSOLUTE MAN 0.02 K/mm3 (0.00-0.00); METAMYELOCYTE PERCENT MAN 1 % (0-0); MONOCYTES ABSOLUTE MAN 0.12 K/mm3 (0.16-1.47); MONOCYTES PERCENT MAN 5 % (4-13); MYELOCYTE ABSOLUTE MAN 0.07 K/mm3 (0.00-0.00); MYELOCYTE PERCENT MAN 3 % (0-0); NEUTROPHILS ABSOLUTE MAN 0.88 K/mm3 (1.96-9.15); SEG NEUTROPHILS PERCENT MAN 35 % (41-73); TOTAL CELLS COUNTED 100
[2020-03-14] MEDS ORDERED: HYDROCODONE-AC1 EAC1 PO (11:56)
[2020-03-14] MEDS ORDERED: OXYC5 PO (18:59)
== END 2020-03-14 13:53 | disposition home or self-care (01) ==
LOC: ER 08:17
PROVIDERS: Emergency Medicine
DX: N23 Unspecified renal colic (principal); Z79.899 Other long term (current) drug therapy
CPT/HCPCS: 36415; 80053; 81003; 83615; 83690; 85025; 96361-59; 96374-59; 96375-59; 99283-25; J1170; J2405; J7120; P9612

== ENCOUNTER 2020-04-02 12:31 | Day surgery (SDC) | payer OTHER ==
[2020-03-31 14:35] LABS: Hematocrit 21.2 % (33.0-51.0); Hemoglobin 7.1 g/dL (11.5-16.0); Mean Corpuscular HGB 31.7 pg (26.0-34.0); Mean Corpuscular HGB Conc 33.5 g/dL (31.5-36.5); RDW Coefficient Variation 13.6 % (11.7-14.2); RDW Standard Deviation 47.7 fL (35.1-46.3); Red Blood Cell Count 2.24 M/mm3 (3.80-5.20)
--- NOTE | 2020-03-31 14:40 | NUR ---
PT STATES SHE THOUGHT SHE WAS HERE FOR A TRANSFUSION, PT WAS TOLD ON 03/30/20 THAT [facility] HAD ORDERS FOR LAB DRAWS ON 03/24/20 AND 03/31/20, SO APPOINTMENT WAS MADE FOR TODAY 03/31/20 TO DRAW LABS. ORDERS FOR LABS ARE FROM [facility] WITH DIFFERENT INFUSION AND TRANSFUSION PARAMETERS, HOWEVER PREVIOUS PLT TRANSFUSION ON 03/24/[address]JOSHUA PIMENTEL. THIS RN WILL LEAVE NOTE FOR Tuesday04/01/20 RN'S TO CONTACT 'S OFFICE TO GET CLARIFICATION ON ORDERS FOR PATIENT. THIS RN TOLD PT WE WOULD CALL HER ON LAB LEVELS AND WHAT HOPEFULLY WE CAN GIVE HER EITHER 03/31/20 OR 04/01/20.
[2020-03-31 14:49] LABS: Mean Corpuscular Volume 95 fL (80-100)
[2020-03-31 14:50] LABS: Alanine Aminotransfer (ALT/SGP 37 U/L (12-78); Albumin, Blood 3.3 g/dL (3.4-5.0); Albumin/Globulin Ratio 1.2 (0.8-1.8); Alk Phos 87 U/L (50-136); Anion Gap 7 mmol/L (6-16); Aspartate Aminotrans (AST/SGOT 20 U/L (12-37); Bilirubin, Total 0.4 mg/dL (0.1-1.0); Blood Urea Nitrogen 18 mg/dL (8-24); Bun/Creatinine Ratio 37.3 (12.0-20.0); CO2, Blood 28 mmol/L (21-32); Calcium, Blood 8.8 mg/dL (8.5-10.1); Chloride, Blood 101 mmol/L (98-108); Creatinine, Blood 0.48 mg/dL (0.40-1.00); Globulin, Blood 2.8 g/dL (2.2-4.0); Glomerular Filtration Rate >60 (60-); Glucose, Blood 164 mg/dL (70-99); Lactate Dehydrogenase (Ld),Bld 176 U/L (100-240); Magnesium, Blood 2.1 mg/dL (1.6-2.4); Phosphorus, Blood 3.1 mg/dL (2.5-4.9); Platelet Count 2 K/mm3 (150-400); Potassium, Blood 3.8 mmol/L (3.5-5.5); Sodium, Blood 136 mmol/L (136-145); Total Protein, Blood 6.1 g/dL (6.4-8.2); Uric Acid, Blood 3.8 mg/dL (2.6-6.0); White Blood Cell Count 0.23 K/mm3 (4.00-11.30)
[2020-03-31 15:07] LABS: BAND PERCENT MAN 3 % (0-8); BASOPHILS PERCENT MAN 0 % (0-2); EOSINOPHILS PERCENT MAN 0 % (0-6); LYMPHOCYTES ABSOLUTE MAN 0.07 K/mm3 (0.84-5.20); LYMPHOCYTES PERCENT MAN 32 % (21-46); METAMYELOCYTE ABSOLUTE MAN 0.01 K/mm3 (0.00-0.00); METAMYELOCYTE PERCENT MAN 5 % (0-0); MONOCYTES PERCENT MAN 0 % (4-13); NEUTROPHILS ABSOLUTE MAN 0.14 K/mm3 (1.96-9.15); SEG NEUTROPHILS PERCENT MAN 59 % (41-73); TOTAL CELLS COUNTED 59
--- NOTE | 2020-03-31 15:19 | NUR ---
PT CALLED WITH LAB RESULTS, SCHEDULED PLT TRANSFUSION FOR 04/01/20.
[~2020-04-02 12:31] MED LIST changes: +HYDROCODONE-AC1 EAC1 PO; +OXYC5 PO
== END 2020-04-02 15:45 | disposition home or self-care (01) ==
LOC: ATC 12:31
PROVIDERS: Internal Medicine Hematology & Oncology
DX: C91.02 Acute lymphoblastic leukemia, in relapse (principal); F32.9 Major depressive disorder, single episode, unspecified; Z79.899 Other long term (current) drug therapy
CPT/HCPCS: 36430; 36592; 80053; 83615; 83735; 84100; 84550; 85025; 86850; 86900; 86901; 86923; 96374; J1200; J7050; P9016; P9037

== ENCOUNTER 2020-04-05 10:42 | Day surgery (SDC) | payer OTHER ==
[2020-04-05 11:52] LABS: Hematocrit 34.7 % (33.0-51.0); Hemoglobin 11.3 g/dL (11.5-16.0); Mean Corpuscular HGB 31.1 pg (26.0-34.0); Mean Corpuscular HGB Conc 32.6 g/dL (31.5-36.5); Mean Corpuscular Volume 96 fL (80-100); Mean Platelet Volume 8.4 fL (9.1-12.4); RDW Coefficient Variation 13.6 % (11.7-14.2); RDW Standard Deviation 47.8 fL (35.1-46.3); Red Blood Cell Count 3.63 M/mm3 (3.80-5.20); White Blood Cell Count 1.95 K/mm3 (4.00-11.30)
[2020-04-05 12:07] LABS: Platelet Count 9 K/mm3 (150-400)
[2020-04-05 12:59] LABS: BAND PERCENT MAN 10 % (0-8); BASOPHILS PERCENT MAN 0 % (0-2); EOSINOPHILS PERCENT MAN 0 % (0-6); LYMPHOCYTES ABSOLUTE MAN 0.25 K/mm3 (0.84-5.20); LYMPHOCYTES PERCENT MAN 13 % (21-46); MONOCYTES ABSOLUTE MAN 0.15 K/mm3 (0.16-1.47); MONOCYTES PERCENT MAN 8 % (4-13); NEUTROPHILS ABSOLUTE MAN 1.54 K/mm3 (1.96-9.15); SEG NEUTROPHILS PERCENT MAN 69 % (41-73); TOTAL CELLS COUNTED 100
== END 2020-04-05 18:34 | disposition home or self-care (01) ==
LOC: ATC 10:42 → LAB SHORT 10:42 → EDSTATUS 17:00 → ATC 18:34
PROVIDERS: Internal Medicine Hematology & Oncology
DX: C91.02 Acute lymphoblastic leukemia, in relapse (principal)
CPT/HCPCS: 36415; 36430; 85025; 86900; 86901; J7050; P9035; Q0163

== ENCOUNTER 2020-04-08 11:34 | Day surgery (SDC) | payer OTHER ==
[2020-04-07 11:13] LABS: BASOPHILS ABSOLUTE AUTO 0.01 K/mm3 (0.00-0.23); BASOPHILS PERCENT AUTO 1 % (0-2); Hematocrit 30.9 % (33.0-51.0); LYMPHOCYTES ABSOLUTE AUTO 0.23 K/mm3 (0.84-5.20); LYMPHOCYTES PERCENT AUTO 15 % (21-46); MONOCYTES ABSOLUTE AUTO 0.16 K/mm3 (0.16-1.47); MONOCYTES PERCENT AUTO 11 % (4-13); Mean Corpuscular HGB 31.1 pg (26.0-34.0); Mean Corpuscular HGB Conc 32.4 g/dL (31.5-36.5); Mean Corpuscular Volume 96 fL (80-100); RDW Coefficient Variation 13.4 % (11.7-14.2); RDW Standard Deviation 46.9 fL (35.1-46.3); Red Blood Cell Count 3.22 M/mm3 (3.80-5.20); White Blood Cell Count 1.53 K/mm3 (4.00-11.30)
[2020-04-07 11:25] LABS: EOSINOPHILS PERCENT AUTO 0 % (0-6); IMMATURE GRAN ABSOLUTE AUTO 0.02 K/mm3 (0.00-0.10); IMMATURE GRAN PERCENT AUTO 1 % (0-1); NEUTROPHILS ABSOLUTE AUTO 1.11 K/mm3 (1.96-9.15); NEUTROPHILS PERCENT AUTO 73 % (41-73); Platelet Count 19 K/mm3 (150-400)
[2020-04-07 11:29] LABS: Alanine Aminotransfer (ALT/SGP 28 U/L (12-78); Albumin, Blood 3.6 g/dL (3.4-5.0); Albumin/Globulin Ratio 1.3 (0.8-1.8); Alk Phos 110 U/L (50-136); Anion Gap 5 mmol/L (6-16); Aspartate Aminotrans (AST/SGOT 23 U/L (12-37); Bilirubin, Total 0.4 mg/dL (0.1-1.0); Blood Urea Nitrogen 16 mg/dL (8-24); Bun/Creatinine Ratio 25.9 (12.0-20.0); CO2, Blood 29 mmol/L (21-32); Chloride, Blood 104 mmol/L (98-108); Creatinine, Blood 0.62 mg/dL (0.40-1.00); Globulin, Blood 2.7 g/dL (2.2-4.0); Glomerular Filtration Rate >60 (60-); Glucose, Blood 133 mg/dL (70-99); Potassium, Blood 3.7 mmol/L (3.5-5.5); Sodium, Blood 138 mmol/L (136-145); Total Protein, Blood 6.3 g/dL (6.4-8.2)
--- NOTE | 2020-04-08 15:25 | NUR ---
PT ARRIVED VIA W/C WITH NOSE BLEED, PT STATES THAT SHE HAS HAD NOSE BLEED SINCE EARLY THIS MORNING AND SHE STATES THAT SHE HAS NEVER HAD A NOSE BLEED SINCE HER DIAGNOSES OF LEUKEMIA 4 YEARS AGO, PT APPEARS CALM, BUT STATES THAT SHE CAN TASTE AND FEEL THE BLOOD RUNNING DOWN THE BACK OF HER THROAT. WENT TO VERIFY PLATLETS AND PT HAS CUT OFF GREEN BLOOD BAND. CALLED [facility] IN ER, PT GIVEN A NOSE CLAMP AND TRANSPORT CAME AND GOT PT, GAVE PT AND ALERTED CASEY BAILEY ORDERS FOR PLATELET. RETURNED PLATLETS TO BLOOD BANK KAN[place]
[2020-04-08] MEDS ORDERED: BENADRYL25 MG PO (15:46)
== END 2020-04-08 22:51 | disposition home or self-care (01) ==
LOC: ATC 11:34 → EDSTATUS 14:01 → ATC 22:51
PROVIDERS: Internal Medicine Hematology & Oncology
DX: C91.02 Acute lymphoblastic leukemia, in relapse (principal); D61.818 Other pancytopenia; F32.9 Major depressive disorder, single episode, unspecified; G62.9 Polyneuropathy, unspecified; Z79.899 Other long term (current) drug therapy
CPT/HCPCS: 36415; 80053; 85025; 86900; 86901; 99211; J7050; Q0163

== ENCOUNTER 2020-04-08 15:26 | Emergency (ER) | payer OTHER ==
[~2020-04-08] VITALS: Ht 162.6 cm; Wt 45.4 kg
[2020-04-08] MEDS ORDERED: BENADRYL25 MG PO (15:46)
[2020-04-08 16:17] LABS: Hematocrit 26.8 % (33.0-51.0); Hemoglobin 8.8 g/dL (11.5-16.0); Mean Corpuscular HGB 31.5 pg (26.0-34.0); Mean Corpuscular HGB Conc 32.8 g/dL (31.5-36.5); Mean Corpuscular Volume 96 fL (80-100); Mean Platelet Volume 9.4 fL (9.1-12.4); RDW Coefficient Variation 13.4 % (11.7-14.2); RDW Standard Deviation 47.3 fL (35.1-46.3); Red Blood Cell Count 2.79 M/mm3 (3.80-5.20); White Blood Cell Count 1.96 K/mm3 (4.00-11.30)
[2020-04-08 16:20] LABS: Platelet Count 7 K/mm3 (150-400)
[2020-04-08 16:39] LABS: Anion Gap 4 mmol/L (6-16); Blood Urea Nitrogen 25 mg/dL (8-24); Bun/Creatinine Ratio 46.4 (12.0-20.0); CO2, Blood 30 mmol/L (21-32); Calcium, Blood 8.8 mg/dL (8.5-10.1); Chloride, Blood 105 mmol/L (98-108); Creatinine, Blood 0.54 mg/dL (0.40-1.00); Glomerular Filtration Rate >60 (60-); Glucose, Blood 141 mg/dL (70-99); Potassium, Blood 3.8 mmol/L (3.5-5.5); Sodium, Blood 139 mmol/L (136-145)
[2020-04-08 16:49] LABS: BAND PERCENT MAN 3 % (0-8); BASOPHILS PERCENT MAN 0 % (0-2); EOSINOPHILS PERCENT MAN 0 % (0-6); LYMPHOCYTES ABSOLUTE MAN 0.17 K/mm3 (0.84-5.20); LYMPHOCYTES PERCENT MAN 9 % (21-46); MONOCYTES ABSOLUTE MAN 0.01 K/mm3 (0.16-1.47); MONOCYTES PERCENT MAN 1 % (4-13); NEUTROPHILS ABSOLUTE MAN 1.76 K/mm3 (1.96-9.15); SEG NEUTROPHILS PERCENT MAN 87 % (41-73); TOTAL CELLS COUNTED 100
--- NOTE | 2020-04-11 23:15 | NUR ---
VERIFYING PAPERWORK SENT TO MEDICAL RECORDS
== END 2020-04-08 21:10 | disposition home or self-care (01) ==
LOC: ER 15:26
PROVIDERS: Physician Assistant
DX: R04.0 Epistaxis (principal); D69.6 Thrombocytopenia, unspecified; F32.9 Major depressive disorder, single episode, unspecified; K21.9 Gastro-esophageal reflux disease without esophagitis; Z91.048 Other nonmedicinal substance allergy status; Z79.899 Other long term (current) drug therapy
CPT/HCPCS: 36430; 80048; 85025; 86850; 86900; 86901; 99283-25; J7030; P9035; Q0163

== ENCOUNTER 2020-04-10 10:17 | Day surgery (SDC) | payer OTHER ==
[~2020-04-10 10:17] MED LIST changes: +BENADRYL25 MG PO
== END 2020-04-10 23:19 | disposition home or self-care (01) ==
LOC: ATC 10:17 → LAB SHORT 10:17 → EDSTATUS 16:54 → ATC 23:19
DX: D61.818 Other pancytopenia (principal); C91.02 Acute lymphoblastic leukemia, in relapse
CPT/HCPCS: 36415; 85025

== ENCOUNTER 2020-04-11 10:32 | Day surgery (SDC) | payer OTHER ==
[2020-04-10 11:27] LABS: Hematocrit 22.6 % (33.0-51.0); Hemoglobin 7.5 g/dL (11.5-16.0); Mean Corpuscular HGB 32.3 pg (26.0-34.0); Mean Corpuscular HGB Conc 33.2 g/dL (31.5-36.5); Mean Corpuscular Volume 97 fL (80-100); Mean Platelet Volume 9.3 fL (9.1-12.4); NRBC ABSOLUTE 0.02 K/mm3 (0.00-0.02); NRBC Auto 1.3 /100 WBC (0.0-0.2); RDW Coefficient Variation 13.8 % (11.7-14.2); RDW Standard Deviation 48.1 fL (35.1-46.3); Red Blood Cell Count 2.32 M/mm3 (3.80-5.20); White Blood Cell Count 1.52 K/mm3 (4.00-11.30)
[2020-04-10 11:35] LABS: Platelet Count 23 K/mm3 (150-400)
[2020-04-10 11:55] LABS: BASOPHILS PERCENT MAN 0 % (0-2); EOSINOPHILS PERCENT MAN 0 % (0-6); LYMPHOCYTES ABSOLUTE MAN 0.25 K/mm3 (0.84-5.20); LYMPHOCYTES PERCENT MAN 17 % (21-46); MONOCYTES ABSOLUTE MAN 0.04 K/mm3 (0.16-1.47); MONOCYTES PERCENT MAN 3 % (4-13); NEUTROPHILS ABSOLUTE MAN 1.21 K/mm3 (1.96-9.15); SEG NEUTROPHILS PERCENT MAN 80 % (41-73); TOTAL CELLS COUNTED 100
--- NOTE | 2020-04-11 17:09 | NUR ---
ALERT. ORIENTED. NO OBVIOUS REACTION FROM TRANSFUSION. CAPS AND DRESSING CHANGED ON PICC. HAS LAB F/U TUESDAY. AMBULATORY, STEADY GAIT TO POV.
== END 2020-04-11 17:21 | disposition home or self-care (01) ==
LOC: MEDS 10:32 → TRN 10:32 → MEDS 13:12 → TRN 13:12
PROVIDERS: Internal Medicine Hematology & Oncology
DX: C91.02 Acute lymphoblastic leukemia, in relapse (principal); D61.818 Other pancytopenia; F32.9 Major depressive disorder, single episode, unspecified; Z79.899 Other long term (current) drug therapy
CPT/HCPCS: 36415; 36430; 85025; 86850; 86900; 86901; 86923; J7050; P9016

== ENCOUNTER 2020-04-14 12:14 | Day surgery (SDC) | payer OTHER ==
--- NOTE | 2020-04-14 16:41 | NUR ---
PTS LUNG SOUNDS ARE CLEAR.
== END 2020-04-14 16:10 | disposition home or self-care (01) ==
LOC: ATC 12:14
DX: D61.818 Other pancytopenia (principal); C91.02 Acute lymphoblastic leukemia, in relapse; G62.9 Polyneuropathy, unspecified; F32.9 Major depressive disorder, single episode, unspecified
CPT/HCPCS: 36430; 86900; 86901; J7050; P9035; Q0163

== ENCOUNTER 2020-04-26 14:46 | Emergency (ER) | payer OTHER ==
[~2020-04-26] VITALS: Ht 160 cm; Wt 48.5 kg
[~2020-04-26 14:46] MED LIST changes: -ASCO500 PO; -TURMERIC500 M2 PO
[2020-04-26 15:28] LABS: BASOPHILS ABSOLUTE AUTO 0.02 K/mm3 (0.00-0.23); BASOPHILS PERCENT AUTO 2 % (0-2); Hematocrit 26.6 % (33.0-51.0); Hemoglobin 8.8 g/dL (11.5-16.0); Mean Corpuscular HGB 30.9 pg (26.0-34.0); Mean Corpuscular HGB Conc 33.1 g/dL (31.5-36.5); Mean Corpuscular Volume 93 fL (80-100); RDW Coefficient Variation 15.9 % (11.7-14.2); RDW Standard Deviation 46.4 fL (35.1-46.3); Red Blood Cell Count 2.85 M/mm3 (3.80-5.20); White Blood Cell Count 1.17 K/mm3 (4.00-11.30)
[2020-04-26 15:35] LABS: EOSINOPHILS ABSOLUTE AUTO 0.01 K/mm3 (0.00-0.68); EOSINOPHILS PERCENT AUTO 1 % (0-6); IMMATURE GRAN ABSOLUTE AUTO 0.21 K/mm3 (0.00-0.10); IMMATURE GRAN PERCENT AUTO 18 % (0-1); LYMPHOCYTES ABSOLUTE AUTO 0.32 K/mm3 (0.84-5.20); LYMPHOCYTES PERCENT AUTO 27 % (21-46); MONOCYTES PERCENT AUTO 17 % (4-13); NEUTROPHILS ABSOLUTE AUTO 0.41 K/mm3 (1.96-9.15); NEUTROPHILS PERCENT AUTO 35 % (41-73)
[2020-04-26 15:36] LABS: Platelet Count 2 K/mm3 (150-400)
[2020-04-26 15:50] LABS: Alanine Aminotransfer (ALT/SGP 63 U/L (12-78); Albumin, Blood 3.4 g/dL (3.4-5.0); Albumin/Globulin Ratio 1.2 (0.8-1.8); Alk Phos 94 U/L (50-136); Anion Gap 7 mmol/L (6-16); Aspartate Aminotrans (AST/SGOT 26 U/L (12-37); Bilirubin, Total 0.8 mg/dL (0.1-1.0); Blood Urea Nitrogen 16 mg/dL (8-24); Bun/Creatinine Ratio 32.1 (12.0-20.0); CO2, Blood 29 mmol/L (21-32); Chloride, Blood 107 mmol/L (98-108); Globulin, Blood 2.8 g/dL (2.2-4.0); Glomerular Filtration Rate >60 (60-); Glucose, Blood 122 mg/dL (70-99); Potassium, Blood 3.7 mmol/L (3.5-5.5); Sodium, Blood 143 mmol/L (136-145); Total Protein, Blood 6.2 g/dL (6.4-8.2)
[2020-04-26] MEDS ORDERED: VALA500 PO (17:28)
[2020-04-26] MEDS ORDERED: TURMERIC500 M2 PO (17:28)
[2020-04-26] MEDS ORDERED: ASCO500 PO (17:28)
[2020-04-26 21:00] LABS: BASOPHILS ABSOLUTE AUTO 0.01 K/mm3 (0.00-0.23); BASOPHILS PERCENT AUTO 1 % (0-2); Hematocrit 24.6 % (33.0-51.0); Hemoglobin 8.1 g/dL (11.5-16.0); Mean Corpuscular HGB Conc 32.9 g/dL (31.5-36.5); Mean Corpuscular Volume 94 fL (80-100); NRBC ABSOLUTE 0.03 K/mm3 (0.00-0.02); NRBC Auto 2.4 /100 WBC (0.0-0.2); RDW Coefficient Variation 15.8 % (11.7-14.2); RDW Standard Deviation 46.9 fL (35.1-46.3); Red Blood Cell Count 2.61 M/mm3 (3.80-5.20); White Blood Cell Count 1.24 K/mm3 (4.00-11.30)
[2020-04-26 21:02] LABS: EOSINOPHILS ABSOLUTE AUTO 0.02 K/mm3 (0.00-0.68); EOSINOPHILS PERCENT AUTO 2 % (0-6); IMMATURE GRAN ABSOLUTE AUTO 0.29 K/mm3 (0.00-0.10); IMMATURE GRAN PERCENT AUTO 23 % (0-1); LYMPHOCYTES ABSOLUTE AUTO 0.21 K/mm3 (0.84-5.20); LYMPHOCYTES PERCENT AUTO 17 % (21-46); MONOCYTES ABSOLUTE AUTO 0.24 K/mm3 (0.16-1.47); MONOCYTES PERCENT AUTO 19 % (4-13); NEUTROPHILS ABSOLUTE AUTO 0.47 K/mm3 (1.96-9.15); NEUTROPHILS PERCENT AUTO 38 % (41-73)
[2020-04-26 21:03] LABS: Platelet Count 21 K/mm3 (150-400)
[2020-04-26 21:42] LABS: BAND PERCENT MAN 8 % (0-8); BASOPHILS ABSOLUTE MAN 0.01 K/mm3 (0.00-0.23); BASOPHILS PERCENT MAN 1 % (0-2); EOSINOPHILS ABSOLUTE MAN 0.01 K/mm3 (0.00-0.68); EOSINOPHILS PERCENT MAN 1 % (0-6); LYMPHOCYTES ABSOLUTE MAN 0.26 K/mm3 (0.84-5.20); LYMPHOCYTES PERCENT MAN 21 % (21-46); METAMYELOCYTE ABSOLUTE MAN 0.01 K/mm3 (0.00-0.00); METAMYELOCYTE PERCENT MAN 1 % (0-0); MONOCYTES ABSOLUTE MAN 0.21 K/mm3 (0.16-1.47); MONOCYTES PERCENT MAN 17 % (4-13); MYELOCYTE ABSOLUTE MAN 0.02 K/mm3 (0.00-0.00); MYELOCYTE PERCENT MAN 2 % (0-0); SEG NEUTROPHILS PERCENT MAN 49 % (41-73); TOTAL CELLS COUNTED 100
== END 2020-04-26 21:30 | disposition home or self-care (01) ==
LOC: ER 14:46
PROVIDERS: Emergency Medicine; Physician Assistant
DX: D69.6 Thrombocytopenia, unspecified (principal); C91.00 Acute lymphoblastic leukemia not having achieved remission; R40.0 Somnolence; Z79.899 Other long term (current) drug therapy; F32.9 Major depressive disorder, single episode, unspecified; Z91.048 Other nonmedicinal substance allergy status
CPT/HCPCS: 80053; 85025; 86850; 86900; 86901; J1200; P9035

== ENCOUNTER 2020-05-13 10:17 | Day surgery (SDC) | payer OTHER ==
[2020-05-12 10:59] LABS: Hematocrit 28.8 % (33.0-51.0); Hemoglobin 9.4 g/dL (11.5-16.0); Mean Corpuscular HGB 34.1 pg (26.0-34.0); Mean Corpuscular HGB Conc 32.6 g/dL (31.5-36.5); Mean Corpuscular Volume 104 fL (80-100); RDW Coefficient Variation 21.7 % (11.7-14.2); RDW Standard Deviation 49.7 fL (35.1-46.3); Red Blood Cell Count 2.76 M/mm3 (3.80-5.20); White Blood Cell Count 1.54 K/mm3 (4.00-11.30)
[2020-05-12 11:14] LABS: Platelet Count 6 K/mm3 (150-400)
[~2020-05-13 10:17] MED LIST changes: +ASCO500 PO; +TURMERIC500 M2 PO; +VALA500 PO
== END 2020-05-13 15:00 | disposition home or self-care (01) ==
LOC: ATC 10:17 → EDSTATUS 10:19 → ATC 15:00
PROVIDERS: Internal Medicine Hematology & Oncology
DX: C91.02 Acute lymphoblastic leukemia, in relapse (principal); F32.9 Major depressive disorder, single episode, unspecified; G62.9 Polyneuropathy, unspecified; Z79.899 Other long term (current) drug therapy; Z88.8 Allergy status to other drugs, medicaments and biological substances
CPT/HCPCS: 36415; 36430; 85025; 86900; 86901; J7050; P9037; Q0163

== ENCOUNTER 2020-05-27 12:57 | Day surgery (SDC) | payer OTHER ==
[2020-05-26 10:56] LABS: BASOPHILS ABSOLUTE AUTO 0.01 K/mm3 (0.00-0.23); BASOPHILS PERCENT AUTO 1 % (0-2); EOSINOPHILS ABSOLUTE AUTO 0.05 K/mm3 (0.00-0.68); EOSINOPHILS PERCENT AUTO 2 % (0-6); Hemoglobin 10.8 g/dL (11.5-16.0); IMMATURE GRAN PERCENT AUTO 0 % (0-1); LYMPHOCYTES ABSOLUTE AUTO 0.55 K/mm3 (0.84-5.20); LYMPHOCYTES PERCENT AUTO 26 % (21-46); MONOCYTES ABSOLUTE AUTO 0.35 K/mm3 (0.16-1.47); MONOCYTES PERCENT AUTO 16 % (4-13); NEUTROPHILS ABSOLUTE AUTO 1.18 K/mm3 (1.96-9.15); NEUTROPHILS PERCENT AUTO 55 % (41-73); White Blood Cell Count 2.14 K/mm3 (4.00-11.30)
[2020-05-26 12:04] LABS: Hematocrit 34.1 % (33.0-51.0); Mean Corpuscular HGB 36.2 pg (26.0-34.0); Mean Corpuscular HGB Conc 31.7 g/dL (31.5-36.5); Mean Corpuscular Volume 114 fL (80-100); Red Blood Cell Count 2.98 M/mm3 (3.80-5.20)
[2020-05-26 12:06] LABS: Platelet Count 11 K/mm3 (150-400)
== END 2020-05-27 15:25 | disposition home or self-care (01) ==
LOC: ATC 12:57 → EDSTATUS 13:01 → ATC 15:25
PROVIDERS: Internal Medicine Hematology & Oncology
DX: C91.02 Acute lymphoblastic leukemia, in relapse (principal); G62.9 Polyneuropathy, unspecified; F32.9 Major depressive disorder, single episode, unspecified; Z79.899 Other long term (current) drug therapy; Z88.8 Allergy status to other drugs, medicaments and biological substances
CPT/HCPCS: 36415; 36430; 85025; 86900; 86901; J7050; P9037; Q0163

== ENCOUNTER 2020-06-03 00:17 | Day surgery (SDC) | payer OTHER ==
--- NOTE | 2020-06-03 13:48 | NUR ---
PT REPORTS SHE ONLY WANTED 25MG OF PO BENADRYL. WILL WASTE 25MG IN PYXSIS
--- NOTE | 2020-06-03 14:54 | NUR ---
NOT ABLE TO ACCESS IV SITE, CASEY SALINASIMS IN TO ACCESS SITE.
== END 2020-06-03 15:23 | disposition home or self-care (01) ==
LOC: ATC 00:17
DX: C91.02 Acute lymphoblastic leukemia, in relapse (principal); F32.9 Major depressive disorder, single episode, unspecified; Z88.8 Allergy status to other drugs, medicaments and biological substances
CPT/HCPCS: 36430; 86900; 86901; J7040; J7050; P9037; Q0163

== ENCOUNTER 2020-06-17 00:14 | Day surgery (SDC) | payer OTHER | END 2020-06-17 15:42 | disposition home or self-care (01) | LOC: ATC 00:14 | DX: D61.818 Other pancytopenia (principal); C91.02 Acute lymphoblastic leukemia, in relapse; F32.9 Major depressive disorder, single episode, unspecified; G62.9 Polyneuropathy, unspecified; Z94.84 Stem cells transplant status; Z92.21 Personal history of antineoplastic chemotherapy | CPT/HCPCS: 36430; 86900; 86901; J7050; P9037; Q0163 ==

== ENCOUNTER 2020-06-20 00:36 | Day surgery (SDC) | payer OTHER ==
[2020-06-19 09:48] LABS: BASOPHILS ABSOLUTE AUTO 0.02 K/mm3 (0.00-0.23); BASOPHILS PERCENT AUTO 1 % (0-2); EOSINOPHILS ABSOLUTE AUTO 0.11 K/mm3 (0.00-0.68); EOSINOPHILS PERCENT AUTO 6 % (0-6); Hematocrit 34.5 % (33.0-51.0); Hemoglobin 11.4 g/dL (11.5-16.0); IMMATURE GRAN ABSOLUTE AUTO 0.01 K/mm3 (0.00-0.10); IMMATURE GRAN PERCENT AUTO 1 % (0-1); LYMPHOCYTES ABSOLUTE AUTO 0.53 K/mm3 (0.84-5.20); LYMPHOCYTES PERCENT AUTO 27 % (21-46); MONOCYTES ABSOLUTE AUTO 0.22 K/mm3 (0.16-1.47); MONOCYTES PERCENT AUTO 11 % (4-13); Mean Corpuscular HGB 37.5 pg (26.0-34.0); Mean Corpuscular Volume 114 fL (80-100); Mean Platelet Volume 11.9 fL (9.1-12.4); NEUTROPHILS ABSOLUTE AUTO 1.08 K/mm3 (1.96-9.15); NEUTROPHILS PERCENT AUTO 55 % (41-73); RDW Coefficient Variation 16.6 % (11.7-14.2); RDW Standard Deviation 68.3 fL (35.1-46.3); Red Blood Cell Count 3.04 M/mm3 (3.80-5.20); White Blood Cell Count 1.97 K/mm3 (4.00-11.30)
[2020-06-19 10:03] LABS: Platelet Count 17 K/mm3 (150-400)
== END 2020-06-20 12:35 | disposition home or self-care (01) ==
LOC: ATC 00:36 → EDSTATUS 10:30 → ATC 12:35
PROVIDERS: Internal Medicine Hematology & Oncology
DX: C91.02 Acute lymphoblastic leukemia, in relapse (principal); F32.9 Major depressive disorder, single episode, unspecified; G62.9 Polyneuropathy, unspecified; Z88.8 Allergy status to other drugs, medicaments and biological substances
CPT/HCPCS: 36415; 36430; 85025; J7050; P9037; Q0163

== ENCOUNTER 2020-07-01 00:02 | Day surgery (SDC) | payer OTHER ==
[2020-06-30 11:55] LABS: BASOPHILS ABSOLUTE AUTO 0.01 K/mm3 (0.00-0.23); BASOPHILS PERCENT AUTO 0 % (0-2); EOSINOPHILS ABSOLUTE AUTO 0.08 K/mm3 (0.00-0.68); EOSINOPHILS PERCENT AUTO 3 % (0-6); Hematocrit 35.6 % (33.0-51.0); Hemoglobin 11.8 g/dL (11.5-16.0); IMMATURE GRAN PERCENT AUTO 0 % (0-1); LYMPHOCYTES ABSOLUTE AUTO 0.61 K/mm3 (0.84-5.20); LYMPHOCYTES PERCENT AUTO 24 % (21-46); MONOCYTES ABSOLUTE AUTO 0.28 K/mm3 (0.16-1.47); MONOCYTES PERCENT AUTO 11 % (4-13); Mean Corpuscular HGB 37.1 pg (26.0-34.0); Mean Corpuscular HGB Conc 33.1 g/dL (31.5-36.5); Mean Corpuscular Volume 112 fL (80-100); NEUTROPHILS ABSOLUTE AUTO 1.58 K/mm3 (1.96-9.15); NEUTROPHILS PERCENT AUTO 62 % (41-73); RDW Coefficient Variation 14.8 % (11.7-14.2); RDW Standard Deviation 62.1 fL (35.1-46.3); Red Blood Cell Count 3.18 M/mm3 (3.80-5.20); White Blood Cell Count 2.56 K/mm3 (4.00-11.30)
[2020-06-30 12:02] LABS: Platelet Count 16 K/mm3 (150-400)
== END 2020-07-01 10:58 | disposition home or self-care (01) ==
LOC: ATC 00:02 → EDSTATUS 09:00 → ATC 09:00
PROVIDERS: Internal Medicine Hematology & Oncology
DX: C91.02 Acute lymphoblastic leukemia, in relapse (principal); F32.9 Major depressive disorder, single episode, unspecified; Z88.8 Allergy status to other drugs, medicaments and biological substances; Z79.899 Other long term (current) drug therapy
CPT/HCPCS: 36415; 36430; 85025; 86900; 86901; J7050; P9037; Q0163

== ENCOUNTER 2020-09-09 02:16 | Day surgery (SDC) | payer OTHER ==
[2020-09-08 09:02] LABS: Hematocrit 25.5 % (33.0-51.0); Hemoglobin 8.3 g/dL (11.5-16.0); Mean Corpuscular HGB 36.4 pg (26.0-34.0); Mean Corpuscular HGB Conc 32.5 g/dL (31.5-36.5); Mean Corpuscular Volume 112 fL (80-100); Mean Platelet Volume 11.3 fL (9.1-12.4); RDW Standard Deviation 54.4 fL (35.1-46.3); Red Blood Cell Count 2.28 M/mm3 (3.80-5.20)
[2020-09-08 09:16] LABS: White Blood Cell Count 0.86 K/mm3 (4.00-11.30)
[2020-09-08 09:17] LABS: Platelet Count 9 K/mm3 (150-400)
[2020-09-08 09:44] LABS: BASOPHILS PERCENT MAN 0 % (0-2); EOSINOPHILS ABSOLUTE MAN 0.03 K/mm3 (0.00-0.68); EOSINOPHILS PERCENT MAN 4 % (0-6); LYMPHOCYTES ABSOLUTE MAN 0.13 K/mm3 (0.84-5.20); LYMPHOCYTES PERCENT MAN 16 % (21-46); MONOCYTES ABSOLUTE MAN 0.08 K/mm3 (0.16-1.47); MONOCYTES PERCENT MAN 10 % (4-13); SEG NEUTROPHILS PERCENT MAN 70 % (41-73); TOTAL CELLS COUNTED 50
[2020-09-09] MEDS ORDERED: METTREX2.5 PO (15:32)
== END 2020-09-09 16:12 | disposition home or self-care (01) ==
LOC: ATC 02:16
PROVIDERS: Internal Medicine Hematology & Oncology
DX: C91.02 Acute lymphoblastic leukemia, in relapse (principal); D61.818 Other pancytopenia; F32.9 Major depressive disorder, single episode, unspecified; Z79.899 Other long term (current) drug therapy
CPT/HCPCS: 36415; 36430; 85025; 86900; 86901; J7050; P9037; Q0163

== ENCOUNTER 2020-09-16 00:44 | Day surgery (SDC) | payer OTHER ==
[~2020-09-16 00:44] MED LIST changes: +METTREX2.5 PO
== END 2020-09-16 15:12 | disposition home or self-care (01) ==
LOC: ATC 00:44
DX: C91.02 Acute lymphoblastic leukemia, in relapse (principal); D61.818 Other pancytopenia; F32.9 Major depressive disorder, single episode, unspecified; G62.9 Polyneuropathy, unspecified; Z88.8 Allergy status to other drugs, medicaments and biological substances; Z79.899 Other long term (current) drug therapy
CPT/HCPCS: 36430; 86900; 86901; J7050; P9035; Q0163

== ENCOUNTER 2020-09-22 14:16 | Inpatient (IN) | payer OTHER ==
[~2020-09-22] VITALS: Ht 162.6 cm; Wt 51.3 kg
[2020-09-22 14:58] LABS: Source, Urine Clean Catch
[2020-09-22 15:03] LABS: Bilirubin, Urine Neg (Neg); Blood, Urine Neg (Neg); Glucose Qualitative, Urine Neg (Neg); Ketones, Urine Neg (Neg); Leukocyte Esterase, Urine Neg (Neg); Nitrite, Urine Neg (Neg); Protein, Urine Neg (Neg); Urobilinogen, Urine NORM (Normal)
[2020-09-22 15:08] LABS: Hematocrit 21.2 % (33.0-51.0); Mean Corpuscular HGB 36.1 pg (26.0-34.0); Mean Corpuscular Volume 109 fL (80-100); RDW Coefficient Variation 16.2 % (11.7-14.2); RDW Standard Deviation 61.5 fL (35.1-46.3); Red Blood Cell Count 1.94 M/mm3 (3.80-5.20)
[2020-09-22 15:09] LABS: Appearance, Urine Clear (Clear); Color, Urine Yellow (P-Yellow)
[2020-09-22 15:18] LABS: Platelet Count 9 K/mm3 (150-400); White Blood Cell Count 0.62 K/mm3 (4.00-11.30)
[2020-09-22 15:26] LABS: Alanine Aminotransfer (ALT/SGP 162 U/L (12-78); Albumin, Blood 3.9 g/dL (3.4-5.0); Albumin/Globulin Ratio 1.5 (0.8-1.8); Alk Phos 103 U/L (50-136); Anion Gap 6 mmol/L (6-16); Aspartate Aminotrans (AST/SGOT 63 U/L (12-37); Bilirubin, Total 0.7 mg/dL (0.1-1.0); Blood Urea Nitrogen 20 mg/dL (8-24); Bun/Creatinine Ratio 28.7 (12.0-20.0); CO2, Blood 33 mmol/L (21-32); Calcium, Blood 9.6 mg/dL (8.5-10.1); Chloride, Blood 103 mmol/L (98-108); Globulin, Blood 2.6 g/dL (2.2-4.0); Glomerular Filtration Rate >60 (60-); Glucose, Blood 119 mg/dL (70-99); Potassium, Blood 3.7 mmol/L (3.5-5.5); Sodium, Blood 142 mmol/L (136-145); Total Protein, Blood 6.5 g/dL (6.4-8.2)
[2020-09-22 15:32] LABS: BAND PERCENT MAN 8 % (0-8); BASOPHILS PERCENT MAN 0 % (0-2); EOSINOPHILS PERCENT MAN 0 % (0-6); LYMPHOCYTES ABSOLUTE MAN 0.24 K/mm3 (0.84-5.20); LYMPHOCYTES PERCENT MAN 40 % (21-46); MONOCYTES ABSOLUTE MAN 0.04 K/mm3 (0.16-1.47); MONOCYTES PERCENT MAN 8 % (4-13); NEUTROPHILS ABSOLUTE MAN 0.32 K/mm3 (1.96-9.15); SEG NEUTROPHILS PERCENT MAN 44 % (41-73); TOTAL CELLS COUNTED 50
[2020-09-22] MEDS ORDERED: VALA500 PO (17:14)
[2020-09-22] MEDS ORDERED: Purinethol50 MG PO (17:14)
[2020-09-22] MEDS ORDERED: Prochlorperazin10 MG PO (17:15)
[2020-09-22 17:28] LABS: Adenovirus Not Detected (NOT DETECT); Bordetella pertussis Not Detected (NOT DETECT); Chlamydophila pneumoniae Not Detected (NOT DETECT); Coronavirus 229E Not Detected (NOT DETECT); Coronavirus HKU1 Not Detected (NOT DETECT); Coronavirus NL63 Not Detected (NOT DETECT); Coronavirus OC43 Not Detected (NOT DETECT); Human Metapneumovirus Not Detected (NOT DETECT); Human Rhinovirus/Enterovirus Not Detected (NOT DETECT); Influenza A/2009-H1 Not Detected (NOT DETECT); Influenza A/H1 Not Detected (NOT DETECT); Influenza A/H3 Not Detected (NOT DETECT); Influenza B Not Detected (NOT DETECT); Mycoplasma pneumoniae Not Detected (NOT DETECT); Parainfluenza Virus 1 Not Detected (NOT DETECT); Parainfluenza Virus 2 Not Detected (NOT DETECT); Parainfluenza Virus 3 Not Detected (NOT DETECT); Parainfluenza Virus 4 Not Detected (NOT DETECT); Respiratory Syncytial Virus Not Detected (NOT DETECT); SARS-Cov-2 (COVID-19), BioFire Not Detected (NOT DETECT)
--- NOTE | 2020-09-23 04:36 | NUR ---
SHIFT SUMMARY ASSUMED CARE OF PT AT 1900. PT IS A/OX4, INDEPENDENT IN ROOM. HEART SOUNDS REGULAR, TELE SHOWS SINUS @ 81. LUNG SOUNDS CLEAR. PT RECEIVED 1 UNIT FFP, PT TEMP STARTED AT 99.4 AND CLIMBED TO 103.2 1 HOUR AFTER PLATLETS FINISHED, TYLENOL WAS GIVEN WITHOUT RELEIF. CALLED HOSPITALIST WHO ORDERED ANOTHER DOSE OF TYLENOL, PT WAS ALSO ICED AND HAD HER BLNAKETS OFF. PT TEMP IS NOW 99.7. PT BP REMAINS LOW BUT PT STATES THIS IS NORMAL. CALL LIGHT IN REACH, BED IN LOWEST POSITION, WILL CONTINUE TO MONITOR.
[2020-09-23 04:37] LABS: Hemoglobin 6.2 g/dL (11.5-16.0); Mean Corpuscular HGB 35.8 pg (26.0-34.0); Mean Corpuscular HGB Conc 32.6 g/dL (31.5-36.5); Mean Corpuscular Volume 110 fL (80-100); RDW Coefficient Variation 16.1 % (11.7-14.2); RDW Standard Deviation 62.1 fL (35.1-46.3); Red Blood Cell Count 1.73 M/mm3 (3.80-5.20)
[2020-09-23 04:40] LABS: BASOPHILS PERCENT AUTO 0 % (0-2); EOSINOPHILS PERCENT AUTO 0 % (0-6); IMMATURE GRAN ABSOLUTE AUTO 0.07 K/mm3 (0.00-0.10); IMMATURE GRAN PERCENT AUTO 12 % (0-1); LYMPHOCYTES ABSOLUTE AUTO 0.18 K/mm3 (0.84-5.20); LYMPHOCYTES PERCENT AUTO 31 % (21-46); MONOCYTES ABSOLUTE AUTO 0.12 K/mm3 (0.16-1.47); MONOCYTES PERCENT AUTO 21 % (4-13); NEUTROPHILS ABSOLUTE AUTO 0.21 K/mm3 (1.96-9.15); NEUTROPHILS PERCENT AUTO 36 % (41-73)
[2020-09-23 04:41] LABS: Platelet Count 40 K/mm3 (150-400); White Blood Cell Count 0.58 K/mm3 (4.00-11.30)
[2020-09-23 04:57] LABS: BAND PERCENT MAN 5 % (0-8); BASOPHILS PERCENT MAN 0 % (0-2); EOSINOPHILS PERCENT MAN 1 % (0-6); LYMPHOCYTES PERCENT MAN 35 % (21-46); MONOCYTES ABSOLUTE MAN 0.11 K/mm3 (0.16-1.47); MONOCYTES PERCENT MAN 19 % (4-13); NEUTROPHILS ABSOLUTE MAN 0.26 K/mm3 (1.96-9.15); SEG NEUTROPHILS PERCENT MAN 40 % (41-73); TOTAL CELLS COUNTED 100
[2020-09-23 05:05] LABS: Alanine Aminotransfer (ALT/SGP 115 U/L (12-78); Albumin, Blood 3.2 g/dL (3.4-5.0); Albumin/Globulin Ratio 1.3 (0.8-1.8); Alk Phos 84 U/L (50-136); Anion Gap 5 mmol/L (6-16); Aspartate Aminotrans (AST/SGOT 38 U/L (12-37); Bilirubin, Total 0.5 mg/dL (0.1-1.0); Blood Urea Nitrogen 15 mg/dL (8-24); Bun/Creatinine Ratio 24.1 (12.0-20.0); CO2, Blood 30 mmol/L (21-32); Calcium, Blood 8.8 mg/dL (8.5-10.1); Chloride, Blood 108 mmol/L (98-108); Creatinine, Blood 0.62 mg/dL (0.40-1.00); Globulin, Blood 2.5 g/dL (2.2-4.0); Glomerular Filtration Rate >60 (60-); Glucose, Blood 93 mg/dL (70-99); Potassium, Blood 3.9 mmol/L (3.5-5.5); Sodium, Blood 143 mmol/L (136-145); Total Protein, Blood 5.7 g/dL (6.4-8.2)
--- NOTE | 2020-09-23 08:10 | NUR ---
THE [employer]CRAFT [employer] MECHANIC FIRST GOT A SBP READING IN THE 60'S, THEN RETOOK IT AND GOT SBP 74. AFTER NOTIFYING ME, WE PUT HER IN LIGHT TRENDELENBERG AND RETOOK THE BP AGAIN. THIS SBP WAS 84. PULSE WAS CONSISTENTLY IN THE 70'S AND NO FEVER. SHE WAS ASYMPTOMATIC BUT I NOTIFIED . BOLUS FLUIDS WERE ORDERED AND TO FOLLOW CONTINUOUS IVF RATE OF 150/HR INSTEAD OF 75. OTHER ORDERS ALSO RECEIVED INCLUDING TRANSFER TO PCU. NO BED AVAILABLE IN PCU SO ICU 1 ASSIGNED. SPOKE WITH THE PATIENT. WHEN SHE UNDERSTOOD THAT WE WOULD MOVE HER TO ICU, SHE REFUSED. SHE IS VERY AFRAID OF THE COVID VIRUS. IN THE MEAN TIME, STILL IN TRENDELENBERG AND IV BOLUS INFUSING, HER SBP CAME UP TO 95. I THEN RAISED THE BED TO SUPINE AND HER SBP IS 92. I NOTIFIED THAT SHE SAYS HER BP IS ALWAYS LOW AND IS BEGGING NOT TO GO TO ICU. HE SAYS IF HER SBP IS IN THE 80'S AFTER THE 2 HR FLUID BOLUS SHE MUST GO TO A HIGHER LEVEL OF CARE. SHE IS RELIEVED. WILL CONTINUE TO MONITOR.
--- NOTE | 2020-09-23 09:46 | NUR ---
SHE HAS HAD SBP 100 SO FAR. 1L IV BOLUS ALMOST DONE. SHE WILL THEN GET HER IV ANTIBIOTIC THEN A BLOOD TRANSFUSION AFTER THAT.
--- NOTE | 2020-09-23 11:46 | NUR ---
BLOOD TRANSFUSION HAS BEEN STARTED. VSS INCLUDING BP AND TEMPERATURE. THE TRANSFER ORDER TO A HIGHER LEVEL OF CARE HAS BEEN CANCELLED.
--- NOTE | 2020-09-23 17:22 | NUR ---
SHE HAS HAD A BUSY DAY WITH FREQUENT VS, IV BOLUS, IV ANTIBIOTICS, AND A BLOOD TRANSFUSION. SHE TOLERATED ALL OF IT WELL. SHE STARTED THE SHIFT HYPOTENSIVE. AT FIRST WANTED HER TRANSFERRED TO PCU. THE PATIENT WAS REFUSING. AND I WERE WILLING TO SEE HOW SHE WAS DOING AFTER SOME TREATMENT. BP DID IMPROVE AND SHE FEELS SAFER HERE IN THIS ROOM WITH HER NEUTROPENIA THAN SHE THOUGHT SHE WOUL ELSEWHERE. SHE DID HAVE A FEVER OF 101.6 TODAY AND TYLENOL WAS GIVEN. HER VISITOR TURNED HER THERMOSTAT UP FOR HER WHEN SHE WAS LEAVING. SHE WAS ALSO USING A KPAD OVER HER ARM AND ABD FOR IV INFUSION COMFORT. SHE HAS BEEN LOW 99'S ON HER TEMPERATURE SINCE. SHE EATS AND VOIDS WELL. NEUTROPENIC PRECAUTIONS IN PLACE.
--- NOTE | 2020-09-23 23:34 | NUR ---
MORNING LABS PT HAS CRITICAL WHITE COUNT, LOW PLATELETS AND HGB. NO MORNING LABS ORDERED ON PT. CALLED KADEN RODRIGEZ NP TO REQUEST LABS. NO ORDER GIVEN, WILL NEED TO FOLLOW UP WITH DAYSHIFT ATTENDING PER HER REQUEST.
--- NOTE | 2020-09-24 04:58 | NUR ---
SHIFT SUMMARY PT HAS RESTED MOST OF THE NIGHT, AND HAS DENIED NEEDS WHEN ASKED. SHE CONTINUES TO HAVE LOW GRADE NEUTROPENIC FEVER OVERNIGHT. IV ABX CONTINUED ORDERED. BLOOD PRESSURE STABLE NOT DROOPING BELOW 90 SBP. IVF INFUSING AT 150 ML/HR ORDERED. PT IS ANXIOUSLY ANTICIPATING DC, BUT GIVEN HER CONTINUED FEVERS SHE IS AWARE THAT DC MAY NOT BE POSSIBLE. SHE WOULD LIKE TO DISCUSS DC FURTHER WITH THE PROVIDER TODAY. NO ACUTE CHANGES TO REPORT OVERNIGHT. BED IN LOWEST POSITION, CALL LIGHT WITHIN REACH.
[2020-09-24 08:39] LABS: Hematocrit 26.5 % (33.0-51.0); Hemoglobin 9.1 g/dL (11.5-16.0); Mean Corpuscular HGB 35.1 pg (26.0-34.0); Mean Corpuscular HGB Conc 34.3 g/dL (31.5-36.5); Mean Platelet Volume 12.4 fL (9.1-12.4); RDW Coefficient Variation 18.8 % (11.7-14.2); RDW Standard Deviation 67.4 fL (35.1-46.3); Red Blood Cell Count 2.59 M/mm3 (3.80-5.20)
[2020-09-24 08:41] LABS: Mean Corpuscular Volume 102 fL (80-100); Platelet Count 31 K/mm3 (150-400)
[2020-09-24 08:44] LABS: White Blood Cell Count 0.75 K/mm3 (4.00-11.30)
[2020-09-24] MEDS ORDERED: LEVFLO500 PO (12:27)
--- NOTE | 2020-09-24 13:47 | NUR ---
DISCHARGE SUMMARY: LATE ENTRY FOR 13:10 PATIENT DENIED PAIN OR DISCOMFORT THROUGHOUT SHIFT. PATIENT DENIED DIZZINESS AT REST OR STANDING. PATIENT DENIED SOB AT REST OR WITH AMBULATION. PATIENT ABLE TO EAT WITHOUT DIFFICULTY. DENIES NAUSEA. ATTEMPTED TO MAKE AN APPOINTMENT WITH THE PATIENT'S PCP, DR. Minnie PIMENTEL. THE OFFICE WAS CLOSED FOR LUNCH. MESSAGE LEFT FOR THE OFFICE TO CALL THE PATIENT. PATIENT REPORTED THAT SHE HAS AN APPOINTMENT ALREADY FOR HER ONCOLOGIST. DISCHARGE RX SENT TO [facility] PER PATIENT REQUEST. DISCHARGE EDUCATION AND INSTRUCTIONS PROVIDED. ALL QUESTIONS AND CONCERNS ADDRESSED. PATIENT DISCHARGED WITH HER MOTHER. PATIENT STABLE AT TIME OF DISCHARGE.
== END 2020-09-24 13:10 | disposition home or self-care (01) | DRG 809 ==
LOC: ER 14:16 → MEDS 17:37
PROVIDERS: Emergency Medicine; Internal Medicine; Physician Assistant; ADMIT Internal Medicine
PROC: 30233N1 Transfusion of Nonautologous Red Blood Cells into Peripheral Vein, Percutaneous Approach (ICD-10-PCS; principal; 2020-09-22)
DX: D70.9 Neutropenia, unspecified (principal); Z94.81 Bone marrow transplant status; C91.00 Acute lymphoblastic leukemia not having achieved remission; R65.10 Systemic inflammatory response syndrome (SIRS) of non-infectious origin without acute organ dysfunction; Z20.828 Contact with and (suspected) exposure to other viral communicable diseases; I95.9 Hypotension, unspecified; D61.818 Other pancytopenia; R50.81 Fever presenting with conditions classified elsewhere
CPT/HCPCS: 0202U; 36415; 36430; 71046; 80053; 81003; 83605; 85025; 85027; 86850; 86900; 86901; 86923; 87040; 96365; 99285-25; A9270; J0692; J1447; J7030; P9016; P9037; Q0163

== ENCOUNTER 2020-10-01 02:55 | Day surgery (SDC) | payer OTHER ==
[~2020-10-01 02:55] MED LIST changes: +Prochlorperazin10 MG PO; +Purinethol50 MG PO
== END 2020-10-01 11:40 | disposition home or self-care (01) ==
LOC: ATC 02:55
PROC: 30233R1 Transfusion of Nonautologous Platelets into Peripheral Vein, Percutaneous Approach (ICD-10-PCS; principal; 2020-10-01)
DX: C91.02 Acute lymphoblastic leukemia, in relapse (principal); D61.818 Other pancytopenia; G62.9 Polyneuropathy, unspecified; F32.9 Major depressive disorder, single episode, unspecified; Z79.899 Other long term (current) drug therapy; Z91.048 Other nonmedicinal substance allergy status
CPT/HCPCS: 36430; 86900; 86901; P9037; Q0163

== ENCOUNTER 2020-10-22 00:20 | Day surgery (SDC) | payer OTHER | END 2020-10-22 17:41 | disposition home or self-care (01) | LOC: ATC 00:20 → LAB 14:00 → ATC 17:41 | PROC: 30233N1 Transfusion of Nonautologous Red Blood Cells into Peripheral Vein, Percutaneous Approach (ICD-10-PCS; principal; 2020-10-22) | DX: D64.81 Anemia due to antineoplastic chemotherapy (principal); C91.02 Acute lymphoblastic leukemia, in relapse; T45.1X5A Adverse effect of antineoplastic and immunosuppressive drugs, initial encounter; Z79.899 Other long term (current) drug therapy; Z91.09 Other allergy status, other than to drugs and biological substances | CPT/HCPCS: 36430; 86850; 86900; 86901; 86923; J7050; P9016; Q0163 ==

== ENCOUNTER 2020-11-20 00:08 | Day surgery (SDC) | payer OTHER, SELFPAY ==
[2020-11-19 12:33] LABS: BASOPHILS ABSOLUTE AUTO 0.01 K/mm3 (0.00-0.23); BASOPHILS PERCENT AUTO 1 % (0-2); EOSINOPHILS ABSOLUTE AUTO 0.03 K/mm3 (0.00-0.68); EOSINOPHILS PERCENT AUTO 2 % (0-6); Hematocrit 34.3 % (33.0-51.0); Hemoglobin 11.2 g/dL (11.5-16.0); IMMATURE GRAN ABSOLUTE AUTO 0.01 K/mm3 (0.00-0.10); IMMATURE GRAN PERCENT AUTO 1 % (0-1); LYMPHOCYTES ABSOLUTE AUTO 0.49 K/mm3 (0.84-5.20); LYMPHOCYTES PERCENT AUTO 38 % (21-46); MONOCYTES ABSOLUTE AUTO 0.25 K/mm3 (0.16-1.47); MONOCYTES PERCENT AUTO 19 % (4-13); Mean Corpuscular HGB 34.5 pg (26.0-34.0); Mean Corpuscular HGB Conc 32.7 g/dL (31.5-36.5); Mean Corpuscular Volume 106 fL (80-100); Mean Platelet Volume 10.1 fL (9.1-12.4); NEUTROPHILS ABSOLUTE AUTO 0.51 K/mm3 (1.96-9.15); NEUTROPHILS PERCENT AUTO 39 % (41-73); RDW Coefficient Variation 20.2 % (11.7-14.2); RDW Standard Deviation 74.5 fL (35.1-46.3); Red Blood Cell Count 3.25 M/mm3 (3.80-5.20)
[2020-11-19 13:02] LABS: Platelet Count 36 K/mm3 (150-400)
--- NOTE | 2020-11-20 15:38 | NUR ---
SPOKE WITH GREG AT DR. PIMENTEL'S OFFICE TO NOTIFY THEM OF CHILLS, AND TEMP INCREASE. TYLENOL 650 MG PO GIVEN PRIOR TO SECOND UNIT OF PLATLETS. NEW IV PLACED PER Yodit ZARAGOZA RN USING ULTRASOUND FIRST IV BECAME PAINFUL AFTER PT BENT HER ARM GOING TO THE BATHROOM.
[2021-03-07] MEDS ORDERED: SENNA LAXATIVE8.6 MG PO (11:15)
[2021-03-07] MEDS ORDERED: ALLO300 PO (16:43)
== END 2020-11-20 17:00 | disposition home or self-care (01) ==
LOC: ATC 00:08
PROVIDERS: Internal Medicine Hematology & Oncology
PROC: 30233R1 Transfusion of Nonautologous Platelets into Peripheral Vein, Percutaneous Approach (ICD-10-PCS; principal; 2020-11-20)
DX: D61.818 Other pancytopenia (principal); C91.02 Acute lymphoblastic leukemia, in relapse; D89.832 Cytokine release syndrome, grade 2; G62.9 Polyneuropathy, unspecified; F32.9 Major depressive disorder, single episode, unspecified; Z79.899 Other long term (current) drug therapy; Z91.048 Other nonmedicinal substance allergy status
CPT/HCPCS: 36415; 36430; 85025; 86900; 86901; A9270; J7050; P9037

== ENCOUNTER 2021-03-24 03:40 | Day surgery (SDC) | payer BC ==
[2021-03-23 08:52] LABS: Hematocrit 21.4 % (33.0-51.0); Hemoglobin 7.3 g/dL (11.5-16.0); Mean Corpuscular HGB 31.2 pg (26.0-34.0); Mean Corpuscular HGB Conc 34.1 g/dL (31.5-36.5); Mean Corpuscular Volume 92 fL (80-100); RDW Coefficient Variation 14.6 % (11.7-14.2); RDW Standard Deviation 47.8 fL (35.1-46.3); Red Blood Cell Count 2.34 M/mm3 (3.80-5.20)
[2021-03-23 09:29] LABS: IMMATURE GRAN ABSOLUTE AUTO 0.01 K/mm3 (0.00-0.10); IMMATURE GRAN PERCENT AUTO 2 % (0-1)
[2021-03-23 09:38] LABS: BASOPHILS PERCENT MAN 0 % (0-2); EOSINOPHILS PERCENT MAN 0 % (0-6); LYMPHOCYTES PERCENT MAN 62 % (21-46); MONOCYTES PERCENT MAN 2 % (4-13); SEG NEUTROPHILS PERCENT MAN 36 % (41-73); TOTAL CELLS COUNTED 50
[2021-03-23 09:47] LABS: Platelet Count 7 K/mm3 (150-400); White Blood Cell Count 0.57 K/mm3 (4.00-11.30)
[~2021-03-24 03:40] MED LIST changes: +ALLO300 PO; +SENNA LAXATIVE8.6 MG PO
[2021-03-24] MEDS ORDERED: ACYC400 PO (13:56)
[2021-03-24] MEDS ORDERED: LORA.5 PO (13:56)
[2021-03-24] MEDS ORDERED: PROC5 PO (13:57)
[2021-03-24] MEDS ORDERED: DULO30 (13:57)
[2021-03-24] MEDS ORDERED: LEVFLO500 PO (13:57)
[2021-03-24] MEDS ORDERED: URSO300 PO (13:58)
--- NOTE | 2021-03-24 15:21 | NUR ---
PLATLETS WERE STARTED AND VERIFIED BY THIERRY RN AND MIGDALIA PEÑA, HOWEVER THE COMPUTER MUST OF NOT FILED AND STARTED UNIT. UNIT WAS STARTED AT 1355 AND ENDED AT 1521 FOR VERIFICATION VITALS MAINTAINED T/O INFUSION
== END 2021-03-24 15:21 | disposition home or self-care (01) ==
LOC: ATC 03:40 → EDSTATUS 13:30 → ATC 13:30
PROVIDERS: Internal Medicine Hematology & Oncology
DX: D61.818 Other pancytopenia (principal); C91.02 Acute lymphoblastic leukemia, in relapse
CPT/HCPCS: 36415; 36430; 85025; 86900; 86901; A9270; J1642; J7050; P9035

== ENCOUNTER 2021-03-24 20:23 | Emergency (ER) | payer BC ==
[~2021-03-24] VITALS: Ht 162.6 cm; Wt 46.7 kg
[~2021-03-24 20:23] MED LIST changes: +DULO30; +LORA.5 PO; +URSO300 PO
== END 2021-03-24 22:32 | disposition left against medical advice (07) ==
LOC: ER 20:23
DX: R51.9 Headache, unspecified (principal); H57.10 Ocular pain, unspecified eye; Z53.21 Procedure and treatment not carried out due to patient leaving prior to being seen by health care provider
CPT/HCPCS: 99282

== ENCOUNTER 2021-03-25 09:04 | Day surgery (SDC) | payer BC | END 2021-03-25 16:05 | disposition home or self-care (01) | LOC: ATC 09:04 | DX: D64.9 Anemia, unspecified (principal); C91.02 Acute lymphoblastic leukemia, in relapse | CPT/HCPCS: 36430; 86850; 86900; 86901; 86923; A9270; J1642; J7050; P9016 ==

== ENCOUNTER 2021-03-27 09:49 | Day surgery (SDC) | payer BC ==
[2021-03-27 10:23] LABS: Mean Corpuscular HGB 30.4 pg (26.0-34.0); Mean Corpuscular HGB Conc 34.8 g/dL (31.5-36.5); Mean Corpuscular Volume 88 fL (80-100); Mean Platelet Volume 9.4 fL (9.1-12.4); RDW Coefficient Variation 15.3 % (11.7-14.2); RDW Standard Deviation 47.4 fL (35.1-46.3); Red Blood Cell Count 2.63 M/mm3 (3.80-5.20)
[2021-03-27 10:50] LABS: Platelet Count 20 K/mm3 (150-400)
[2021-03-27 10:51] LABS: White Blood Cell Count 0.84 K/mm3 (4.00-11.30)
[2021-03-27 11:31] LABS: BASOPHILS PERCENT MAN 0 % (0-2); EOSINOPHILS ABSOLUTE MAN 0.01 K/mm3 (0.00-0.68); EOSINOPHILS PERCENT MAN 2 % (0-6); LYMPHOCYTES ABSOLUTE MAN 0.33 K/mm3 (0.84-5.20); LYMPHOCYTES PERCENT MAN 40 % (21-46); MONOCYTES PERCENT MAN 1 % (4-13); MYELOCYTE PERCENT MAN 1 % (0-0); NEUTROPHILS ABSOLUTE MAN 0.47 K/mm3 (1.96-9.15); SEG NEUTROPHILS PERCENT MAN 56 % (41-73); TOTAL CELLS COUNTED 100
== END 2021-03-27 17:35 | disposition home or self-care (01) ==
LOC: ATC 09:49 → LAB SHORT 09:49 → ATC 17:35 → EDSTATUS 03-27 08:55 → LAB FUT 03-27 08:55
PROVIDERS: Internal Medicine Hematology & Oncology
DX: C91.02 Acute lymphoblastic leukemia, in relapse (principal)
CPT/HCPCS: 36415; 36430; 85025; 86850; 86900; 86901; 86923; A9270; J1642; J7050; P9016; P9035

== ENCOUNTER 2021-03-30 10:44 | Day surgery (SDC) | payer BC ==
[2021-03-30 09:15] LABS: Mean Corpuscular HGB 30.7 pg (26.0-34.0); Mean Corpuscular HGB Conc 33.3 g/dL (31.5-36.5); Mean Corpuscular Volume 92 fL (80-100); Mean Platelet Volume 10.3 fL (9.1-12.4); RDW Standard Deviation 46.1 fL (35.1-46.3); Red Blood Cell Count 2.61 M/mm3 (3.80-5.20)
[2021-03-30 09:24] LABS: White Blood Cell Count 0.63 K/mm3 (4.00-11.30)
[2021-03-30 09:25] LABS: Platelet Count 10 K/mm3 (150-400)
[2021-03-30 09:58] LABS: BASOPHILS PERCENT MAN 0 % (0-2); EOSINOPHILS PERCENT MAN 0 % (0-6); LYMPHOCYTES ABSOLUTE MAN 0.41 K/mm3 (0.84-5.20); LYMPHOCYTES PERCENT MAN 66 % (21-46); MONOCYTES ABSOLUTE MAN 0.05 K/mm3 (0.16-1.47); MONOCYTES PERCENT MAN 8 % (4-13); NEUTROPHILS ABSOLUTE MAN 0.16 K/mm3 (1.96-9.15); SEG NEUTROPHILS PERCENT MAN 26 % (41-73); TOTAL CELLS COUNTED 50
== END 2021-03-30 18:04 | disposition home or self-care (01) ==
LOC: ATC 10:44
PROVIDERS: Internal Medicine Hematology & Oncology
DX: D61.818 Other pancytopenia (principal); C91.02 Acute lymphoblastic leukemia, in relapse
CPT/HCPCS: 36415; 36430; 85025; 86850; 86900; 86901; 86923; A9270; J1642; J7050; P9037; P9040

== ENCOUNTER 2021-04-02 09:34 | Day surgery (SDC) | payer BC ==
[2021-04-02 08:57] LABS: Hematocrit 23.7 % (33.0-51.0); Hemoglobin 7.9 g/dL (11.5-16.0); Mean Corpuscular HGB Conc 33.3 g/dL (31.5-36.5); Mean Corpuscular Volume 93 fL (80-100); Mean Platelet Volume 9.2 fL (9.1-12.4); NRBC ABSOLUTE 0.02 K/mm3 (0.00-0.02); NRBC Auto 2.6 /100 WBC (0.0-0.2); RDW Coefficient Variation 15.8 % (11.7-14.2); RDW Standard Deviation 46.1 fL (35.1-46.3); Red Blood Cell Count 2.55 M/mm3 (3.80-5.20)
[2021-04-02 09:11] LABS: Platelet Count 10 K/mm3 (150-400); White Blood Cell Count 0.77 K/mm3 (4.00-11.30)
[2021-04-02 09:41] LABS: BASOPHILS ABSOLUTE MAN 0.02 K/mm3 (0.00-0.23); BASOPHILS PERCENT MAN 3 % (0-2); EOSINOPHILS PERCENT MAN 1 % (0-6); LYMPHOCYTES ABSOLUTE MAN 0.43 K/mm3 (0.84-5.20); LYMPHOCYTES PERCENT MAN 57 % (21-46); MONOCYTES ABSOLUTE MAN 0.06 K/mm3 (0.16-1.47); MONOCYTES PERCENT MAN 9 % (4-13); NEUTROPHILS ABSOLUTE MAN 0.23 K/mm3 (1.96-9.15); SEG NEUTROPHILS PERCENT MAN 30 % (41-73); TOTAL CELLS COUNTED 100
== END 2021-04-02 12:49 | disposition home or self-care (01) ==
LOC: ATC 09:34 → EDSTATUS 09:35 → ATC 12:49
PROVIDERS: Internal Medicine Hematology & Oncology
DX: C91.02 Acute lymphoblastic leukemia, in relapse (principal); D61.818 Other pancytopenia
CPT/HCPCS: 36415; 36430; 85025; 86850; 86900; 86901; 86923; A9270; J1642; J7050; P9037; P9040

== ENCOUNTER 2021-04-06 13:01 | Emergency (ER) | payer BC ==
[~2021-04-06] VITALS: Ht 160 cm; Wt 47.6 kg
== END 2021-04-06 22:18 | disposition home or self-care (01) ==
LOC: ER 13:01
DX: D61.818 Other pancytopenia (principal); K21.9 Gastro-esophageal reflux disease without esophagitis; Z91.09 Other allergy status, other than to drugs and biological substances; Z88.8 Allergy status to other drugs, medicaments and biological substances; Z79.899 Other long term (current) drug therapy
CPT/HCPCS: 36430; 86850; 86900; 86901; 86923; 99283-25; A9270; J1642; J7030; P9035; P9040

== ENCOUNTER 2021-04-10 04:49 | Day surgery (SDC) | payer BC ==
[2021-04-09 08:57] LABS: BASOPHILS PERCENT AUTO 0 % (0-2); Hematocrit 25.5 % (33.0-51.0); Hemoglobin 8.4 g/dL (11.5-16.0); Mean Corpuscular HGB 31.3 pg (26.0-34.0); Mean Corpuscular HGB Conc 32.9 g/dL (31.5-36.5); Mean Corpuscular Volume 95 fL (80-100); Mean Platelet Volume 9.5 fL (9.1-12.4); RDW Coefficient Variation 17.2 % (11.7-14.2); RDW Standard Deviation 47.8 fL (35.1-46.3); Red Blood Cell Count 2.68 M/mm3 (3.80-5.20); White Blood Cell Count 1.64 K/mm3 (4.00-11.30)
[2021-04-09 08:59] LABS: EOSINOPHILS ABSOLUTE AUTO 0.01 K/mm3 (0.00-0.68); EOSINOPHILS PERCENT AUTO 1 % (0-6); IMMATURE GRAN PERCENT AUTO 6 % (0-1); LYMPHOCYTES ABSOLUTE AUTO 0.52 K/mm3 (0.84-5.20); LYMPHOCYTES PERCENT AUTO 32 % (21-46); MONOCYTES ABSOLUTE AUTO 0.16 K/mm3 (0.16-1.47); MONOCYTES PERCENT AUTO 10 % (4-13); NEUTROPHILS ABSOLUTE AUTO 0.85 K/mm3 (1.96-9.15); NEUTROPHILS PERCENT AUTO 52 % (41-73)
[2021-04-09 09:03] LABS: Platelet Count 8 K/mm3 (150-400)
== END 2021-04-10 17:58 | disposition home or self-care (01) ==
LOC: ATC 04:49 → EDSTATUS 14:00 → ATC 17:58
PROVIDERS: Internal Medicine Hematology & Oncology
DX: D61.818 Other pancytopenia (principal); C91.02 Acute lymphoblastic leukemia, in relapse
CPT/HCPCS: 36415; 36430; 85025; 86850; 86900; 86901; 86923; A9270; J1642; J7050; P9037; P9040

== ENCOUNTER 2021-04-17 04:38 | Day surgery (SDC) | payer BC ==
[2021-04-16 09:53] LABS: Hematocrit 22.8 % (33.0-51.0); Hemoglobin 7.5 g/dL (11.5-16.0); Mean Corpuscular HGB 31.4 pg (26.0-34.0); Mean Corpuscular HGB Conc 32.9 g/dL (31.5-36.5); Mean Corpuscular Volume 95 fL (80-100); Mean Platelet Volume 12.6 fL (9.1-12.4); NRBC ABSOLUTE 0.03 K/mm3 (0.00-0.02); NRBC Auto 1.9 /100 WBC (0.0-0.2); RDW Coefficient Variation 16.4 % (11.7-14.2); RDW Standard Deviation 48.3 fL (35.1-46.3); Red Blood Cell Count 2.39 M/mm3 (3.80-5.20); White Blood Cell Count 1.61 K/mm3 (4.00-11.30)
[2021-04-16 10:14] LABS: Platelet Count 5 K/mm3 (150-400)
[2021-04-16 10:38] LABS: SEG NEUTROPHILS PERCENT MAN 60 % (41-73); TOTAL CELLS COUNTED 100
[2021-04-16 10:39] LABS: BAND PERCENT MAN 2 % (0-8); BASOPHILS PERCENT MAN 0 % (0-2); EOSINOPHILS PERCENT MAN 0 % (0-6); LYMPHOCYTES ABSOLUTE MAN 0.43 K/mm3 (0.84-5.20); LYMPHOCYTES PERCENT MAN 27 % (21-46); MONOCYTES ABSOLUTE MAN 0.16 K/mm3 (0.16-1.47); MONOCYTES PERCENT MAN 10 % (4-13); MYELOCYTE ABSOLUTE MAN 0.01 K/mm3 (0.00-0.00); MYELOCYTE PERCENT MAN 1 % (0-0); NEUTROPHILS ABSOLUTE MAN 0.99 K/mm3 (1.96-9.15)
== END 2021-04-17 17:18 | disposition home or self-care (01) ==
LOC: ATC 04:38 → EDSTATUS 14:30 → ATC 14:30
PROVIDERS: Internal Medicine Hematology & Oncology
DX: C92.02 Acute myeloblastic leukemia, in relapse (principal); K21.9 Gastro-esophageal reflux disease without esophagitis; F32.9 Major depressive disorder, single episode, unspecified
CPT/HCPCS: 36415; 36430; 85025; 86850; 86900; 86901; 86923; A9270; J1642; J7050; P9037; P9040

== ENCOUNTER 2021-04-19 08:57 | Emergency (ER) | payer BC ==
[~2021-04-19] VITALS: Ht 162.6 cm; Wt 49.0 kg
[2021-04-19 09:57] LABS: Hematocrit 18.7 % (33.0-51.0); Mean Corpuscular HGB Conc 32.1 g/dL (31.5-36.5); Mean Corpuscular Volume 94 fL (80-100); RDW Coefficient Variation 20.5 % (11.7-14.2); RDW Standard Deviation 59.9 fL (35.1-46.3)
[2021-04-19 10:04] LABS: White Blood Cell Count 0.88 K/mm3 (4.00-11.30)
[2021-04-19 10:08] LABS: Platelet Count 13 K/mm3 (150-400)
[2021-04-19 10:09] LABS: BASOPHILS ABSOLUTE AUTO 0.01 K/mm3 (0.00-0.23); BASOPHILS PERCENT AUTO 1 % (0-2); EOSINOPHILS ABSOLUTE AUTO 0.01 K/mm3 (0.00-0.68); EOSINOPHILS PERCENT AUTO 1 % (0-6); IMMATURE GRAN PERCENT AUTO 0 % (0-1); LYMPHOCYTES ABSOLUTE AUTO 0.43 K/mm3 (0.84-5.20); LYMPHOCYTES PERCENT AUTO 49 % (21-46); MONOCYTES ABSOLUTE AUTO 0.18 K/mm3 (0.16-1.47); MONOCYTES PERCENT AUTO 21 % (4-13); NEUTROPHILS ABSOLUTE AUTO 0.25 K/mm3 (1.96-9.15); NEUTROPHILS PERCENT AUTO 28 % (41-73)
[2021-04-19] MEDS ORDERED: CYMBALTA30 M2 PO (12:10)
== END 2021-04-19 17:10 | disposition home or self-care (01) ==
LOC: ER 08:57
PROVIDERS: Emergency Medicine
DX: D63.0 Anemia in neoplastic disease (principal); C95.90 Leukemia, unspecified not having achieved remission; Z79.899 Other long term (current) drug therapy
CPT/HCPCS: 36430; 85025; 86850; 86900; 86901; 86923; 96374; 99284-25; J1200; J1642; J7030; P9016

== ENCOUNTER 2021-04-20 13:43 | Day surgery (SDC) | payer BC ==
[2021-04-20 09:24] LABS: BASOPHILS ABSOLUTE AUTO 0.01 K/mm3 (0.00-0.23); BASOPHILS PERCENT AUTO 1 % (0-2); EOSINOPHILS ABSOLUTE AUTO 0.02 K/mm3 (0.00-0.68); EOSINOPHILS PERCENT AUTO 2 % (0-6); Hematocrit 31.4 % (33.0-51.0); Hemoglobin 10.7 g/dL (11.5-16.0); Mean Corpuscular HGB Conc 34.1 g/dL (31.5-36.5); Mean Corpuscular Volume 91 fL (80-100); NRBC ABSOLUTE 0.02 K/mm3 (0.00-0.02); NRBC Auto 1.6 /100 WBC (0.0-0.2); RDW Coefficient Variation 17.9 % (11.7-14.2); RDW Standard Deviation 49.4 fL (35.1-46.3); Red Blood Cell Count 3.45 M/mm3 (3.80-5.20); White Blood Cell Count 1.28 K/mm3 (4.00-11.30)
[2021-04-20 09:40] LABS: IMMATURE GRAN ABSOLUTE AUTO 0.01 K/mm3 (0.00-0.10); IMMATURE GRAN PERCENT AUTO 1 % (0-1); LYMPHOCYTES PERCENT AUTO 55 % (21-46); MONOCYTES ABSOLUTE AUTO 0.19 K/mm3 (0.16-1.47); MONOCYTES PERCENT AUTO 15 % (4-13); NEUTROPHILS ABSOLUTE AUTO 0.35 K/mm3 (1.96-9.15); NEUTROPHILS PERCENT AUTO 27 % (41-73); Platelet Count 7 K/mm3 (150-400)
[~2021-04-20 13:43] MED LIST changes: +CYMBALTA30 M2 PO
== END 2021-04-20 16:26 | disposition home or self-care (01) ==
LOC: ATC 13:43
PROVIDERS: Internal Medicine Hematology & Oncology
DX: D61.818 Other pancytopenia (principal); C91.01 Acute lymphoblastic leukemia, in remission; K21.9 Gastro-esophageal reflux disease without esophagitis; F32.9 Major depressive disorder, single episode, unspecified
CPT/HCPCS: 36415; 36430; 85025; A9270; J1642; J7050; P9037

== ENCOUNTER 2021-04-24 07:44 | Day surgery (SDC) | payer BC ==
[2021-04-23 09:51] LABS: BASOPHILS ABSOLUTE AUTO 0.01 K/mm3 (0.00-0.23); BASOPHILS PERCENT AUTO 1 % (0-2); EOSINOPHILS ABSOLUTE AUTO 0.01 K/mm3 (0.00-0.68); EOSINOPHILS PERCENT AUTO 1 % (0-6); Hematocrit 25.4 % (33.0-51.0); Hemoglobin 8.4 g/dL (11.5-16.0); Mean Corpuscular HGB 31.8 pg (26.0-34.0); Mean Corpuscular HGB Conc 33.1 g/dL (31.5-36.5); Mean Corpuscular Volume 96 fL (80-100); NRBC ABSOLUTE 0.03 K/mm3 (0.00-0.02); NRBC Auto 2.3 /100 WBC (0.0-0.2); RDW Coefficient Variation 17.9 % (11.7-14.2); RDW Standard Deviation 50.6 fL (35.1-46.3); Red Blood Cell Count 2.64 M/mm3 (3.80-5.20)
[2021-04-23 09:56] LABS: IMMATURE GRAN ABSOLUTE AUTO 0.03 K/mm3 (0.00-0.10); IMMATURE GRAN PERCENT AUTO 2 % (0-1); LYMPHOCYTES PERCENT AUTO 46 % (21-46); MONOCYTES ABSOLUTE AUTO 0.13 K/mm3 (0.16-1.47); MONOCYTES PERCENT AUTO 10 % (4-13); Mean Platelet Volume 13.3 fL (9.1-12.4); NEUTROPHILS ABSOLUTE AUTO 0.52 K/mm3 (1.96-9.15); NEUTROPHILS PERCENT AUTO 40 % (41-73)
[2021-04-23 10:02] LABS: Platelet Count 14 K/mm3 (150-400)
== END 2021-04-24 10:30 | disposition home or self-care (01) ==
LOC: ATC 07:44
PROVIDERS: Internal Medicine Hematology & Oncology
DX: C91.02 Acute lymphoblastic leukemia, in relapse (principal); D61.818 Other pancytopenia; Z88.8 Allergy status to other drugs, medicaments and biological substances; Z91.048 Other nonmedicinal substance allergy status
CPT/HCPCS: 36415; 36430; 85025; 86850; 86900; 86901; 86923; A9270; J1642; J7050; P9037; P9040

== ENCOUNTER 2021-04-27 09:48 | Day surgery (SDC) | payer BC ==
[2021-04-27 09:14] LABS: Hematocrit 19.9 % (33.0-51.0); Hemoglobin 6.6 g/dL (11.5-16.0); Mean Corpuscular HGB Conc 33.2 g/dL (31.5-36.5); Mean Corpuscular Volume 97 fL (80-100); Mean Platelet Volume 11.6 fL (9.1-12.4); NRBC ABSOLUTE 0.02 K/mm3 (0.00-0.02); NRBC Auto 1.7 /100 WBC (0.0-0.2); RDW Coefficient Variation 19.9 % (11.7-14.2); RDW Standard Deviation 51.5 fL (35.1-46.3); Red Blood Cell Count 2.06 M/mm3 (3.80-5.20)
[2021-04-27 09:29] LABS: Platelet Count 7 K/mm3 (150-400)
[2021-04-27 09:51] LABS: BASOPHILS PERCENT MAN 0 % (0-2); EOSINOPHILS ABSOLUTE MAN 0.02 K/mm3 (0.00-0.68); EOSINOPHILS PERCENT MAN 2 % (0-6); LYMPHOCYTES ABSOLUTE MAN 0.57 K/mm3 (0.84-5.20); LYMPHOCYTES PERCENT MAN 48 % (21-46); MONOCYTES ABSOLUTE MAN 0.07 K/mm3 (0.16-1.47); MONOCYTES PERCENT MAN 6 % (4-13); MYELOCYTE ABSOLUTE MAN 0.02 K/mm3 (0.00-0.00); MYELOCYTE PERCENT MAN 2 % (0-0); SEG NEUTROPHILS PERCENT MAN 42 % (41-73); TOTAL CELLS COUNTED 50
== END 2021-04-27 18:15 | disposition home or self-care (01) ==
LOC: ATC 09:48 → EDSTATUS 04-28 13:30
PROVIDERS: Internal Medicine Hematology & Oncology
DX: C92.02 Acute myeloblastic leukemia, in relapse (principal); Z88.8 Allergy status to other drugs, medicaments and biological substances
CPT/HCPCS: 36415; 36430; 85025; 86850; 86900; 86901; 86923; A9270; J1642; J7050; P9037; P9040

== ENCOUNTER 2021-05-01 12:55 | Day surgery (SDC) | payer BC ==
[2021-04-30 09:20] LABS: Hematocrit 25.7 % (33.0-51.0); Hemoglobin 8.4 g/dL (11.5-16.0); Mean Corpuscular HGB 30.4 pg (26.0-34.0); Mean Corpuscular HGB Conc 32.7 g/dL (31.5-36.5); Mean Corpuscular Volume 93 fL (80-100); Mean Platelet Volume 11.8 fL (9.1-12.4); RDW Coefficient Variation 19.9 % (11.7-14.2); RDW Standard Deviation 50.1 fL (35.1-46.3); Red Blood Cell Count 2.76 M/mm3 (3.80-5.20); White Blood Cell Count 1.26 K/mm3 (4.00-11.30)
[2021-04-30 09:44] LABS: Platelet Count 7 K/mm3 (150-400)
[2021-04-30 10:04] LABS: BASOPHILS ABSOLUTE MAN 0.01 K/mm3 (0.00-0.23); BASOPHILS PERCENT MAN 1 % (0-2); EOSINOPHILS PERCENT MAN 0 % (0-6); LYMPHOCYTES ABSOLUTE MAN 0.52 K/mm3 (0.84-5.20); LYMPHOCYTES PERCENT MAN 42 % (21-46); MONOCYTES ABSOLUTE MAN 0.17 K/mm3 (0.16-1.47); MONOCYTES PERCENT MAN 14 % (4-13); NEUTROPHILS ABSOLUTE MAN 0.54 K/mm3 (1.96-9.15); SEG NEUTROPHILS PERCENT MAN 43 % (41-73); TOTAL CELLS COUNTED 100
== END 2021-05-01 17:00 | disposition home or self-care (01) ==
LOC: ATC 12:55
PROVIDERS: Internal Medicine Hematology & Oncology
DX: C91.02 Acute lymphoblastic leukemia, in relapse (principal); D64.81 Anemia due to antineoplastic chemotherapy; D61.818 Other pancytopenia; Z88.8 Allergy status to other drugs, medicaments and biological substances; Z91.09 Other allergy status, other than to drugs and biological substances; Z94.81 Bone marrow transplant status; Z92.21 Personal history of antineoplastic chemotherapy
CPT/HCPCS: 36415; 36430; 85025; 86850; 86900; 86901; 86923; A9270; J1642; J7050; P9037; P9040

== ENCOUNTER 2021-05-04 11:05 | Day surgery (SDC) | payer BC ==
[2021-05-04 09:34] LABS: Hematocrit 26.4 % (33.0-51.0); Hemoglobin 8.4 g/dL (11.5-16.0); Mean Corpuscular HGB 29.7 pg (26.0-34.0); Mean Corpuscular HGB Conc 31.8 g/dL (31.5-36.5); Mean Corpuscular Volume 93 fL (80-100); Mean Platelet Volume 11.1 fL (9.1-12.4); RDW Standard Deviation 50.4 fL (35.1-46.3); Red Blood Cell Count 2.83 M/mm3 (3.80-5.20); White Blood Cell Count 1.05 K/mm3 (4.00-11.30)
[2021-05-04 09:49] LABS: Platelet Count 8 K/mm3 (150-400)
[2021-05-04 10:32] LABS: BASOPHILS PERCENT MAN 0 % (0-2); EOSINOPHILS PERCENT MAN 0 % (0-6); LYMPHOCYTES ABSOLUTE MAN 0.48 K/mm3 (0.84-5.20); LYMPHOCYTES PERCENT MAN 46 % (21-46); METAMYELOCYTE ABSOLUTE MAN 0.01 K/mm3 (0.00-0.00); METAMYELOCYTE PERCENT MAN 1 % (0-0); MONOCYTES ABSOLUTE MAN 0.06 K/mm3 (0.16-1.47); MONOCYTES PERCENT MAN 6 % (4-13); NEUTROPHILS ABSOLUTE MAN 0.49 K/mm3 (1.96-9.15); SEG NEUTROPHILS PERCENT MAN 47 % (41-73); TOTAL CELLS COUNTED 100
== END 2021-05-04 14:45 | disposition home or self-care (01) ==
LOC: ATC 11:05 → EDSTATUS 11:06 → ATC 14:45
PROVIDERS: Internal Medicine Hematology & Oncology
DX: C91.02 Acute lymphoblastic leukemia, in relapse (principal); D64.81 Anemia due to antineoplastic chemotherapy; F10.239 Alcohol dependence with withdrawal, unspecified; T45.1X5A Adverse effect of antineoplastic and immunosuppressive drugs, initial encounter
CPT/HCPCS: 36415; 36430; 85025; 86900; 86901; J1642; J7050; P9035

== ENCOUNTER 2021-05-08 04:48 | Day surgery (SDC) | payer BC ==
[2021-05-07 09:35] LABS: BASOPHILS ABSOLUTE AUTO 0.01 K/mm3 (0.00-0.23); BASOPHILS PERCENT AUTO 1 % (0-2); EOSINOPHILS ABSOLUTE AUTO 0.02 K/mm3 (0.00-0.68); EOSINOPHILS PERCENT AUTO 1 % (0-6); Hematocrit 20.6 % (33.0-51.0); Hemoglobin 6.4 g/dL (11.5-16.0); Mean Corpuscular HGB 30.5 pg (26.0-34.0); Mean Corpuscular HGB Conc 31.1 g/dL (31.5-36.5); Mean Corpuscular Volume 98 fL (80-100); Mean Platelet Volume 10.7 fL (9.1-12.4); RDW Coefficient Variation 22.6 % (11.7-14.2); RDW Standard Deviation 52.6 fL (35.1-46.3); White Blood Cell Count 1.67 K/mm3 (4.00-11.30)
[2021-05-07 09:41] LABS: IMMATURE GRAN ABSOLUTE AUTO 0.01 K/mm3 (0.00-0.10); IMMATURE GRAN PERCENT AUTO 1 % (0-1); LYMPHOCYTES ABSOLUTE AUTO 0.56 K/mm3 (0.84-5.20); LYMPHOCYTES PERCENT AUTO 34 % (21-46); MONOCYTES PERCENT AUTO 12 % (4-13); NEUTROPHILS ABSOLUTE AUTO 0.87 K/mm3 (1.96-9.15); NEUTROPHILS PERCENT AUTO 52 % (41-73)
[2021-05-07 09:46] LABS: Platelet Count 22 K/mm3 (150-400)
[2021-05-07 10:10] LABS: BAND PERCENT MAN 5 % (0-8); BASOPHILS PERCENT MAN 0 % (0-2); EOSINOPHILS PERCENT MAN 0 % (0-6); LYMPHOCYTES ABSOLUTE MAN 0.48 K/mm3 (0.84-5.20); LYMPHOCYTES PERCENT MAN 29 % (21-46); MONOCYTES ABSOLUTE MAN 0.13 K/mm3 (0.16-1.47); MONOCYTES PERCENT MAN 8 % (4-13); NEUTROPHILS ABSOLUTE MAN 1.05 K/mm3 (1.96-9.15); SEG NEUTROPHILS PERCENT MAN 58 % (41-73); TOTAL CELLS COUNTED 100
== END 2021-05-08 11:40 | disposition home or self-care (01) ==
LOC: ATC 04:48 → EDSTATUS 08:00 → ATC 11:40
PROVIDERS: Internal Medicine Hematology & Oncology
DX: C91.12 Chronic lymphocytic leukemia of B-cell type in relapse (principal); D61.818 Other pancytopenia; K21.9 Gastro-esophageal reflux disease without esophagitis; Z88.8 Allergy status to other drugs, medicaments and biological substances; Z91.048 Other nonmedicinal substance allergy status; Z94.81 Bone marrow transplant status
CPT/HCPCS: 36415; 36430; 85025; 86850; 86870; 86900; 86901; 86922; A9270; J1642; J7050; P9040

== ENCOUNTER 2021-05-12 14:47 | Emergency (ER) | payer BC, OTHER ==
[~2021-05-12] VITALS: Ht 162.6 cm; Wt 48.5 kg
[2021-05-12 15:38] LABS: Source, Urine Clean Catch
[2021-05-12 16:08] LABS: Appearance, Urine Bloody (Clear); Bilirubin, Urine Neg (Neg); Blood, Urine 4+ (Neg); Color, Urine Red (P-Yellow); Glucose Qualitative, Urine Neg (Neg); Ketones, Urine Neg (Neg); Leukocyte Esterase, Urine Neg (Neg); Nitrite, Urine Neg (Neg); Protein, Urine 4+ (Neg); Specific Gravity, Urine 1.015 (1.003-1.022); Urobilinogen, Urine NORM (Normal)
[2021-05-12 16:35] LABS: Bacteria Not Seen /hpf; Red Blood Cells, Urine TNTC /hpf (0-2); Squamous Epithelial Cells Not Seen /hpf (Few); White Blood Cells, Urine 0-2 /hpf (0-5)
[2021-05-12 16:55] LABS: NRBC ABSOLUTE 0.06 K/mm3 (0.00-0.02); White Blood Cell Count 6.29 K/mm3 (4.00-11.30)
[2021-05-12 17:20] LABS: Alanine Aminotransfer (ALT/SGP 19 U/L (12-78); Albumin, Blood 2.4 g/dL (3.4-5.0); Albumin/Globulin Ratio 1.1 (0.8-1.8); Alk Phos 70 U/L (50-136); Anion Gap 4 mmol/L (6-16); Aspartate Aminotrans (AST/SGOT 24 U/L (12-37); Bilirubin, Total 0.3 mg/dL (0.1-1.0); Blood Urea Nitrogen 13 mg/dL (8-24); Bun/Creatinine Ratio 22.3 (12.0-20.0); CO2, Blood 31 mmol/L (21-32); Chloride, Blood 107 mmol/L (98-108); Creatinine, Blood 0.58 mg/dL (0.40-1.00); Globulin, Blood 2.2 g/dL (2.2-4.0); Glomerular Filtration Rate >60 (60-); Glucose, Blood 97 mg/dL (70-99); Potassium, Blood 3.7 mmol/L (3.5-5.5); Sodium, Blood 142 mmol/L (136-145); Total Protein, Blood 4.6 g/dL (6.4-8.2)
[2021-05-12 17:32] LABS: Mean Corpuscular HGB 29.8 pg (26.0-34.0); Mean Corpuscular HGB Conc 31.1 g/dL (31.5-36.5); Mean Corpuscular Volume 96 fL (80-100); Red Blood Cell Count 1.68 M/mm3 (3.80-5.20)
[2021-05-12 17:34] LABS: Hematocrit 16.1 % (33.0-51.0); Platelet Count 11 K/mm3 (150-400)
[2021-05-12 18:01] LABS: BAND PERCENT MAN 19 % (0-8); BASOPHILS PERCENT MAN 0 % (0-2); EOSINOPHILS PERCENT MAN 0 % (0-6); LYMPHOCYTES PERCENT MAN 16 % (21-46); METAMYELOCYTE ABSOLUTE MAN 0.06 K/mm3 (0.00-0.00); METAMYELOCYTE PERCENT MAN 1 % (0-0); MONOCYTES ABSOLUTE MAN 0.31 K/mm3 (0.16-1.47); MONOCYTES PERCENT MAN 5 % (4-13); SEG NEUTROPHILS PERCENT MAN 59 % (41-73); TOTAL CELLS COUNTED 100
== END 2021-05-12 21:44 | disposition home or self-care (01) ==
LOC: ER 14:47
PROVIDERS: Physician Assistant
DX: R31.9 Hematuria, unspecified (principal); D53.9 Nutritional anemia, unspecified; D69.6 Thrombocytopenia, unspecified; K21.9 Gastro-esophageal reflux disease without esophagitis; Z88.8 Allergy status to other drugs, medicaments and biological substances; Z91.09 Other allergy status, other than to drugs and biological substances; Z79.899 Other long term (current) drug therapy
CPT/HCPCS: 51798; 76705; 80053; 81001; 83690; 85025; 99284-25; J1642

== ENCOUNTER 2021-05-13 08:19 | Day surgery (SDC) | payer BC ==
[2021-05-12 09:31] LABS: BASOPHILS ABSOLUTE AUTO 0.01 K/mm3 (0.00-0.23); BASOPHILS PERCENT AUTO 1 % (0-2); NRBC ABSOLUTE 0.04 K/mm3 (0.00-0.02); NRBC Auto 2.3 /100 WBC (0.0-0.2); White Blood Cell Count 1.73 K/mm3 (4.00-11.30)
[2021-05-12 09:35] LABS: Hematocrit 18.8 % (33.0-51.0); Hemoglobin 5.8 g/dL (11.5-16.0); Mean Corpuscular HGB 28.7 pg (26.0-34.0); Mean Corpuscular HGB Conc 30.9 g/dL (31.5-36.5); Mean Corpuscular Volume 93 fL (80-100); Red Blood Cell Count 2.02 M/mm3 (3.80-5.20)
[2021-05-12 09:36] LABS: EOSINOPHILS ABSOLUTE AUTO 0.01 K/mm3 (0.00-0.68); EOSINOPHILS PERCENT AUTO 1 % (0-6); IMMATURE GRAN ABSOLUTE AUTO 0.04 K/mm3 (0.00-0.10); IMMATURE GRAN PERCENT AUTO 2 % (0-1); LYMPHOCYTES PERCENT AUTO 29 % (21-46); MONOCYTES ABSOLUTE AUTO 0.24 K/mm3 (0.16-1.47); MONOCYTES PERCENT AUTO 14 % (4-13); NEUTROPHILS ABSOLUTE AUTO 0.93 K/mm3 (1.96-9.15); NEUTROPHILS PERCENT AUTO 54 % (41-73)
[2021-05-12 09:38] LABS: Platelet Count 9 K/mm3 (150-400)
[2021-05-12 10:33] LABS: BAND PERCENT MAN 1 % (0-8); BASOPHILS ABSOLUTE MAN 0.03 K/mm3 (0.00-0.23); BASOPHILS PERCENT MAN 2 % (0-2); EOSINOPHILS ABSOLUTE MAN 0.01 K/mm3 (0.00-0.68); EOSINOPHILS PERCENT MAN 1 % (0-6); LYMPHOCYTES ABSOLUTE MAN 0.46 K/mm3 (0.84-5.20); LYMPHOCYTES PERCENT MAN 27 % (21-46); MONOCYTES ABSOLUTE MAN 0.12 K/mm3 (0.16-1.47); MONOCYTES PERCENT MAN 7 % (4-13); NEUTROPHILS ABSOLUTE MAN 1.08 K/mm3 (1.96-9.15); SEG NEUTROPHILS PERCENT MAN 62 % (41-73); TOTAL CELLS COUNTED 100
== END 2021-05-13 15:12 | disposition home or self-care (01) ==
LOC: ATC 08:19 → EDSTATUS 08:20 → ATC 15:12
PROVIDERS: Internal Medicine Hematology & Oncology
DX: C91.02 Acute lymphoblastic leukemia, in relapse (principal); D64.81 Anemia due to antineoplastic chemotherapy; K21.9 Gastro-esophageal reflux disease without esophagitis; Z79.899 Other long term (current) drug therapy
CPT/HCPCS: 36415; 36430; 85025; 86850; 86900; 86901; 86922; A9270; J1642; J7050; P9016; P9035

== ENCOUNTER 2021-05-16 13:41 | Day surgery (SDC) | payer BC ==
[2021-05-14 14:00] LABS: Hematocrit 23.2 % (33.0-51.0); Hemoglobin 7.6 g/dL (11.5-16.0); Mean Corpuscular HGB 30.2 pg (26.0-34.0); Mean Corpuscular HGB Conc 32.8 g/dL (31.5-36.5); Mean Corpuscular Volume 92 fL (80-100); Mean Platelet Volume 11.7 fL (9.1-12.4); NRBC ABSOLUTE 0.03 K/mm3 (0.00-0.02); NRBC Auto 0.6 /100 WBC (0.0-0.2); RDW Standard Deviation 51.8 fL (35.1-46.3); Red Blood Cell Count 2.52 M/mm3 (3.80-5.20); White Blood Cell Count 5.43 K/mm3 (4.00-11.30)
[2021-05-14 14:07] LABS: Alanine Aminotransfer (ALT/SGP 21 U/L (12-78); Albumin, Blood 2.5 g/dL (3.4-5.0); Albumin/Globulin Ratio 1.1 (0.8-1.8); Alk Phos 75 U/L (50-136); Anion Gap 4 mmol/L (6-16); Aspartate Aminotrans (AST/SGOT 21 U/L (12-37); Bilirubin, Total 0.4 mg/dL (0.1-1.0); Blood Urea Nitrogen 9 mg/dL (8-24); CO2, Blood 31 mmol/L (21-32); Calcium, Blood 8.6 mg/dL (8.5-10.1); Chloride, Blood 108 mmol/L (98-108); Creatinine, Blood 0.65 mg/dL (0.40-1.00); Globulin, Blood 2.3 g/dL (2.2-4.0); Glomerular Filtration Rate >60 (60-); Glucose, Blood 89 mg/dL (70-99); Lactate Dehydrogenase (Ld),Bld 181 U/L (100-240); Potassium, Blood 3.5 mmol/L (3.5-5.5); Sodium, Blood 143 mmol/L (136-145); Total Protein, Blood 4.8 g/dL (6.4-8.2)
[2021-05-14 14:17] LABS: Platelet Count 29 K/mm3 (150-400)
[2021-05-14 14:46] LABS: BAND PERCENT MAN 4 % (0-8); BASOPHILS PERCENT MAN 0 % (0-2); EOSINOPHILS PERCENT MAN 0 % (0-6); LYMPHOCYTES % ATYPICAL MANUAL 1 % (0-0); LYMPHOCYTES ABSOLUTE MAN 0.38 K/mm3 (0.84-5.20); LYMPHOCYTES PERCENT MAN 6 % (21-46); MONOCYTES ABSOLUTE MAN 0.16 K/mm3 (0.16-1.47); MONOCYTES PERCENT MAN 3 % (4-13); NEUTROPHILS ABSOLUTE MAN 4.88 K/mm3 (1.96-9.15); SEG NEUTROPHILS PERCENT MAN 86 % (41-73); TOTAL CELLS COUNTED 100
== END 2021-05-16 15:28 | disposition home or self-care (01) ==
LOC: ATC 13:41
PROVIDERS: Internal Medicine Hematology & Oncology
DX: C92.02 Acute myeloblastic leukemia, in relapse (principal); C91.02 Acute lymphoblastic leukemia, in relapse; D61.818 Other pancytopenia
CPT/HCPCS: 36415; 36430; 80053; 83615; 85025; 86850; 86900; 86901; 86922; A9270; J1642; J7050; P9040

== ENCOUNTER 2021-05-19 09:57 | Day surgery (SDC) | payer BC ==
[2021-05-18 10:48] LABS: Hemoglobin 10.1 g/dL (11.5-16.0); Mean Corpuscular Volume 93 fL (80-100)
[2021-05-18 10:50] LABS: Hematocrit 31.4 % (33.0-51.0); Mean Corpuscular HGB Conc 32.2 g/dL (31.5-36.5); RDW Coefficient Variation 23.6 % (11.7-14.2); RDW Standard Deviation 52.5 fL (35.1-46.3); Red Blood Cell Count 3.37 M/mm3 (3.80-5.20); White Blood Cell Count 1.78 K/mm3 (4.00-11.30)
[2021-05-18 11:15] LABS: Platelet Count 9 K/mm3 (150-400)
[2021-05-18 12:02] LABS: BAND PERCENT MAN 4 % (0-8); BASOPHILS PERCENT MAN 0 % (0-2); EOSINOPHILS ABSOLUTE MAN 0.03 K/mm3 (0.00-0.68); EOSINOPHILS PERCENT MAN 2 % (0-6); LYMPHOCYTES ABSOLUTE MAN 0.42 K/mm3 (0.84-5.20); LYMPHOCYTES PERCENT MAN 24 % (21-46); MONOCYTES ABSOLUTE MAN 0.17 K/mm3 (0.16-1.47); MONOCYTES PERCENT MAN 10 % (4-13); NEUTROPHILS ABSOLUTE MAN 1.13 K/mm3 (1.96-9.15); SEG NEUTROPHILS PERCENT MAN 60 % (41-73); TOTAL CELLS COUNTED 50
--- NOTE | 2021-05-19 11:33 | NUR ---
HYPOTENSION BP OF 77/38 DURING BLOOD TRANSFUSION. PT STATES THIS IS NORMAL. PT IS NON-SYMPTOMATIC.
== END 2021-05-19 12:17 | disposition home or self-care (01) ==
LOC: ATC 09:57 → EDSTATUS 09:58 → ATC 12:17
PROVIDERS: Internal Medicine Hematology & Oncology
DX: C91.02 Acute lymphoblastic leukemia, in relapse (principal); D61.818 Other pancytopenia; Z91.048 Other nonmedicinal substance allergy status
CPT/HCPCS: 36415; 85025; 86900; 86901; A9270; J1642; J7050; P9037

== ENCOUNTER 2021-05-27 02:40 | Day surgery (SDC) | payer BC ==
[2021-05-25 09:28] LABS: Hematocrit 18.3 % (33.0-51.0); Hemoglobin 5.6 g/dL (11.5-16.0); Mean Corpuscular HGB Conc 30.6 g/dL (31.5-36.5); Mean Corpuscular Volume 105 fL (80-100); Platelet Count 16 K/mm3 (150-400); Red Blood Cell Count 1.75 M/mm3 (3.80-5.20)
[2021-05-25 09:34] LABS: White Blood Cell Count 0.81 K/mm3 (4.00-11.30)
[2021-05-25 09:56] LABS: BAND PERCENT MAN 4 % (0-8); BASOPHILS ABSOLUTE MAN 0.03 K/mm3 (0.00-0.23); BASOPHILS PERCENT MAN 4 % (0-2); EOSINOPHILS PERCENT MAN 0 % (0-6); LYMPHOCYTES ABSOLUTE MAN 0.48 K/mm3 (0.84-5.20); LYMPHOCYTES PERCENT MAN 60 % (21-46); MONOCYTES PERCENT MAN 0 % (4-13); NEUTROPHILS ABSOLUTE MAN 0.29 K/mm3 (1.96-9.15); SEG NEUTROPHILS PERCENT MAN 32 % (41-73); TOTAL CELLS COUNTED 25
[2021-05-25 10:03] LABS: Alanine Aminotransfer (ALT/SGP 20 U/L (12-78); Albumin, Blood 2.7 g/dL (3.4-5.0); Albumin/Globulin Ratio 1.1 (0.8-1.8); Alk Phos 83 U/L (50-136); Anion Gap 4 mmol/L (6-16); Aspartate Aminotrans (AST/SGOT 28 U/L (12-37); Bilirubin, Total 0.2 mg/dL (0.1-1.0); Blood Urea Nitrogen 12 mg/dL (8-24); Bun/Creatinine Ratio 19.9 (12.0-20.0); CO2, Blood 30 mmol/L (21-32); Calcium, Blood 8.4 mg/dL (8.5-10.1); Chloride, Blood 109 mmol/L (98-108); Globulin, Blood 2.5 g/dL (2.2-4.0); Glomerular Filtration Rate >60 (60-); Glucose, Blood 94 mg/dL (70-99); Lactate Dehydrogenase (Ld),Bld 227 U/L (100-240); Potassium, Blood 3.8 mmol/L (3.5-5.5); Sodium, Blood 143 mmol/L (136-145); Total Protein, Blood 5.2 g/dL (6.4-8.2)
== END 2021-05-27 09:15 | disposition home or self-care (01) ==
LOC: ATC 02:40
PROVIDERS: Internal Medicine Hematology & Oncology
DX: C91.02 Acute lymphoblastic leukemia, in relapse (principal); Z91.048 Other nonmedicinal substance allergy status; Z91.09 Other allergy status, other than to drugs and biological substances; Z94.81 Bone marrow transplant status; Z92.21 Personal history of antineoplastic chemotherapy
CPT/HCPCS: 36415; 36430; 80053; 83615; 85025; 86850; 86900; 86901; 86922; A9270; J1642; J7050; P9037; P9040

== ENCOUNTER 2021-05-29 02:26 | Day surgery (SDC) | payer BC ==
[2021-05-28 08:17] LABS: Hematocrit 20.6 % (33.0-51.0); Hemoglobin 6.7 g/dL (11.5-16.0); Mean Corpuscular HGB 30.7 pg (26.0-34.0); Mean Corpuscular HGB Conc 32.5 g/dL (31.5-36.5); Mean Corpuscular Volume 95 fL (80-100); Mean Platelet Volume 10.8 fL (9.1-12.4); NRBC ABSOLUTE 0.02 K/mm3 (0.00-0.02); NRBC Auto 0.6 /100 WBC (0.0-0.2); Red Blood Cell Count 2.18 M/mm3 (3.80-5.20); White Blood Cell Count 3.25 K/mm3 (4.00-11.30)
[2021-05-28 08:19] LABS: Platelet Count 34 K/mm3 (150-400)
[2021-05-28 08:24] LABS: Alanine Aminotransfer (ALT/SGP 18 U/L (12-78); Albumin, Blood 2.6 g/dL (3.4-5.0); Albumin/Globulin Ratio 1.2 (0.8-1.8); Alk Phos 80 U/L (50-136); Anion Gap 3 mmol/L (6-16); Aspartate Aminotrans (AST/SGOT 21 U/L (12-37); Bilirubin, Total 0.4 mg/dL (0.1-1.0); Blood Urea Nitrogen 9 mg/dL (8-24); Bun/Creatinine Ratio 15.2 (12.0-20.0); CO2, Blood 33 mmol/L (21-32); Calcium, Blood 8.3 mg/dL (8.5-10.1); Chloride, Blood 108 mmol/L (98-108); Creatinine, Blood 0.59 mg/dL (0.40-1.00); Globulin, Blood 2.2 g/dL (2.2-4.0); Glomerular Filtration Rate >60 (60-); Glucose, Blood 89 mg/dL (70-99); Lactate Dehydrogenase (Ld),Bld 191 U/L (100-240); Potassium, Blood 3.7 mmol/L (3.5-5.5); Sodium, Blood 144 mmol/L (136-145); Total Protein, Blood 4.8 g/dL (6.4-8.2)
== END 2021-05-29 09:54 | disposition home or self-care (01) ==
LOC: ATC 02:26
PROVIDERS: Internal Medicine Hematology & Oncology
DX: C91.02 Acute lymphoblastic leukemia, in relapse (principal); D64.81 Anemia due to antineoplastic chemotherapy; T45.1X5A Adverse effect of antineoplastic and immunosuppressive drugs, initial encounter; K21.9 Gastro-esophageal reflux disease without esophagitis
CPT/HCPCS: 36430; 36591; 80053; 83615; 85027; 86850; 86900; 86901; 86920; A9270; J1642; J7050; P9040

== ENCOUNTER 2021-06-04 02:06 | Day surgery (SDC) | payer BC, OTHER ==
[2021-06-04 08:07] LABS: BASOPHILS ABSOLUTE AUTO 0.01 K/mm3 (0.00-0.23); BASOPHILS PERCENT AUTO 0 % (0-2); Hematocrit 24.8 % (33.0-51.0); LYMPHOCYTES ABSOLUTE AUTO 0.58 K/mm3 (0.84-5.20); LYMPHOCYTES PERCENT AUTO 17 % (21-46); MONOCYTES ABSOLUTE AUTO 0.24 K/mm3 (0.16-1.47); MONOCYTES PERCENT AUTO 7 % (4-13); Mean Corpuscular HGB 31.3 pg (26.0-34.0); Mean Corpuscular HGB Conc 32.3 g/dL (31.5-36.5); Mean Corpuscular Volume 97 fL (80-100); Mean Platelet Volume 11.5 fL (9.1-12.4); RDW Coefficient Variation 23.2 % (11.7-14.2); RDW Standard Deviation 51.4 fL (35.1-46.3); Red Blood Cell Count 2.56 M/mm3 (3.80-5.20); White Blood Cell Count 3.34 K/mm3 (4.00-11.30)
[2021-06-04 08:13] LABS: EOSINOPHILS ABSOLUTE AUTO 0.04 K/mm3 (0.00-0.68); EOSINOPHILS PERCENT AUTO 1 % (0-6); IMMATURE GRAN ABSOLUTE AUTO 0.05 K/mm3 (0.00-0.10); IMMATURE GRAN PERCENT AUTO 2 % (0-1); NEUTROPHILS ABSOLUTE AUTO 2.42 K/mm3 (1.96-9.15); NEUTROPHILS PERCENT AUTO 72 % (41-73); Platelet Count 21 K/mm3 (150-400)
[2021-06-04 08:28] LABS: Alanine Aminotransfer (ALT/SGP 22 U/L (12-78); Albumin, Blood 2.7 g/dL (3.4-5.0); Albumin/Globulin Ratio 1.2 (0.8-1.8); Alk Phos 78 U/L (50-136); Anion Gap 3 mmol/L (6-16); Aspartate Aminotrans (AST/SGOT 25 U/L (12-37); Bilirubin, Total 0.3 mg/dL (0.1-1.0); Blood Urea Nitrogen 11 mg/dL (8-24); Bun/Creatinine Ratio 18.6 (12.0-20.0); CO2, Blood 32 mmol/L (21-32); Calcium, Blood 8.4 mg/dL (8.5-10.1); Chloride, Blood 107 mmol/L (98-108); Creatinine, Blood 0.59 mg/dL (0.40-1.00); Globulin, Blood 2.2 g/dL (2.2-4.0); Glomerular Filtration Rate >60 (60-); Glucose, Blood 94 mg/dL (70-99); Lactate Dehydrogenase (Ld),Bld 215 U/L (100-240); Potassium, Blood 3.5 mmol/L (3.5-5.5); Sodium, Blood 142 mmol/L (136-145); Total Protein, Blood 4.9 g/dL (6.4-8.2)
== END 2021-06-04 07:55 | disposition home or self-care (01) ==
LOC: ATC 02:06
PROVIDERS: Internal Medicine Hematology & Oncology
DX: C91.02 Acute lymphoblastic leukemia, in relapse (principal); D61.818 Other pancytopenia; Z88.8 Allergy status to other drugs, medicaments and biological substances; Z91.048 Other nonmedicinal substance allergy status
CPT/HCPCS: 36591; 80053; 83615; 85025; J1642

== ENCOUNTER 2021-06-09 07:24 | Day surgery (SDC) | payer BC, OTHER ==
[2021-06-08 08:33] LABS: Mean Platelet Volume 12.7 fL (9.1-12.4); NRBC ABSOLUTE 0.02 K/mm3 (0.00-0.02); NRBC Auto 1.2 /100 WBC (0.0-0.2)
[2021-06-08 08:38] LABS: Mean Corpuscular HGB 33.1 pg (26.0-34.0); Mean Corpuscular HGB Conc 32.1 g/dL (31.5-36.5); Mean Corpuscular Volume 103 fL (80-100)
[2021-06-08 08:39] LABS: Hemoglobin 5.3 g/dL (11.5-16.0); Platelet Count 15 K/mm3 (150-400)
[2021-06-08 08:40] LABS: Hematocrit 16.5 % (33.0-51.0)
[2021-06-08 08:54] LABS: Alanine Aminotransfer (ALT/SGP 22 U/L (12-78); Albumin, Blood 2.3 g/dL (3.4-5.0); Albumin/Globulin Ratio 0.9 (0.8-1.8); Alk Phos 66 U/L (50-136); Anion Gap 4 mmol/L (6-16); Aspartate Aminotrans (AST/SGOT 21 U/L (12-37); Bilirubin, Total 0.3 mg/dL (0.1-1.0); Blood Urea Nitrogen 15 mg/dL (8-24); Bun/Creatinine Ratio 24.8 (12.0-20.0); CO2, Blood 31 mmol/L (21-32); Chloride, Blood 107 mmol/L (98-108); Creatinine, Blood 0.61 mg/dL (0.40-1.00); Globulin, Blood 2.6 g/dL (2.2-4.0); Glomerular Filtration Rate >60 (60-); Glucose, Blood 99 mg/dL (70-99); Lactate Dehydrogenase (Ld),Bld 187 U/L (100-240); Potassium, Blood 3.5 mmol/L (3.5-5.5); Sodium, Blood 142 mmol/L (136-145); Total Protein, Blood 4.9 g/dL (6.4-8.2)
[2021-06-08 09:21] LABS: BASOPHILS ABSOLUTE MAN 0.03 K/mm3 (0.00-0.23); BASOPHILS PERCENT MAN 2 % (0-2); EOSINOPHILS PERCENT MAN 0 % (0-6); LYMPHOCYTES PERCENT MAN 24 % (21-46); MONOCYTES PERCENT MAN 12 % (4-13); NEUTROPHILS ABSOLUTE MAN 1.05 K/mm3 (1.96-9.15); SEG NEUTROPHILS PERCENT MAN 62 % (41-73); TOTAL CELLS COUNTED 50
== END 2021-06-09 10:55 | disposition home or self-care (01) ==
LOC: ATC 07:24
PROVIDERS: Internal Medicine Hematology & Oncology
DX: C91.02 Acute lymphoblastic leukemia, in relapse (principal); D61.818 Other pancytopenia; Z94.81 Bone marrow transplant status; Z88.8 Allergy status to other drugs, medicaments and biological substances; Z91.048 Other nonmedicinal substance allergy status
CPT/HCPCS: 36430; 36591; 80053; 83615; 85025; 86850; 86900; 86901; 86920; A9270; J1642; J7050; P9037; P9040

== ENCOUNTER 2021-06-12 00:39 | Day surgery (SDC) | payer BC ==
[2021-06-11 09:26] LABS: Hematocrit 22.1 % (33.0-51.0); Hemoglobin 7.2 g/dL (11.5-16.0); Mean Corpuscular HGB 31.9 pg (26.0-34.0); Mean Corpuscular HGB Conc 32.6 g/dL (31.5-36.5); NRBC ABSOLUTE 0.02 K/mm3 (0.00-0.02); NRBC Auto 0.7 /100 WBC (0.0-0.2); RDW Coefficient Variation 25.9 % (11.7-14.2); RDW Standard Deviation 51.1 fL (35.1-46.3); Red Blood Cell Count 2.26 M/mm3 (3.80-5.20)
[2021-06-11 09:33] LABS: Mean Corpuscular Volume 98 fL (80-100)
[2021-06-11 09:34] LABS: Mean Platelet Volume 11.3 fL (9.1-12.4); Platelet Count 24 K/mm3 (150-400)
[2021-06-11 09:38] LABS: Alanine Aminotransfer (ALT/SGP 21 U/L (12-78); Albumin, Blood 2.6 g/dL (3.4-5.0); Alk Phos 81 U/L (50-136); Anion Gap 3 mmol/L (6-16); Aspartate Aminotrans (AST/SGOT 25 U/L (12-37); Bilirubin, Total 0.3 mg/dL (0.1-1.0); Blood Urea Nitrogen 9 mg/dL (8-24); Bun/Creatinine Ratio 14.1 (12.0-20.0); CO2, Blood 32 mmol/L (21-32); Calcium, Blood 8.2 mg/dL (8.5-10.1); Chloride, Blood 109 mmol/L (98-108); Creatinine, Blood 0.64 mg/dL (0.40-1.00); Globulin, Blood 2.7 g/dL (2.2-4.0); Glomerular Filtration Rate >60 (60-); Glucose, Blood 106 mg/dL (70-99); Potassium, Blood 3.5 mmol/L (3.5-5.5); Sodium, Blood 144 mmol/L (136-145); Total Protein, Blood 5.3 g/dL (6.4-8.2)
[2021-06-11 09:41] LABS: BAND PERCENT MAN 1 % (0-8); BASOPHILS PERCENT MAN 0 % (0-2); EOSINOPHILS PERCENT MAN 0 % (0-6); LYMPHOCYTES ABSOLUTE MAN 0.28 K/mm3 (0.84-5.20); LYMPHOCYTES PERCENT MAN 10 % (21-46); MONOCYTES ABSOLUTE MAN 0.19 K/mm3 (0.16-1.47); MONOCYTES PERCENT MAN 7 % (4-13); NEUTROPHILS ABSOLUTE MAN 2.32 K/mm3 (1.96-9.15); SEG NEUTROPHILS PERCENT MAN 82 % (41-73); TOTAL CELLS COUNTED 100
[2021-06-17 06:10] LABS: (LD) FRACTION 1 16 % (17-32); (LD) FRACTION 2 31 % (25-40); (LD) FRACTION 3 24 % (17-27); (LD) FRACTION 4 15 % (5-13); (LD) FRACTION 5 14 % (4-20); LDH 283 IU/L (119-226)
== END 2021-06-12 10:16 | disposition home or self-care (01) ==
LOC: ATC 00:39
PROVIDERS: Internal Medicine Hematology & Oncology
DX: D64.9 Anemia, unspecified (principal); C91.02 Acute lymphoblastic leukemia, in relapse
CPT/HCPCS: 36430; 36591; 80053; 83615; 83625; 85025; 86850; 86900; 86901; 86920; A9270; J1642; J7050; P9040

== ENCOUNTER 2021-06-15 00:35 | Day surgery (SDC) | payer BC ==
[2021-06-15 08:03] LABS: Hemoglobin 6.8 g/dL (11.5-16.0); Mean Platelet Volume 11.3 fL (9.1-12.4); White Blood Cell Count 1.36 K/mm3 (4.00-11.30)
[2021-06-15 08:12] LABS: Hematocrit 21.9 % (33.0-51.0); Mean Corpuscular HGB 32.1 pg (26.0-34.0); Mean Corpuscular HGB Conc 31.1 g/dL (31.5-36.5); Mean Corpuscular Volume 103 fL (80-100); Platelet Count 10 K/mm3 (150-400); Red Blood Cell Count 2.12 M/mm3 (3.80-5.20)
[2021-06-15 08:21] LABS: Alanine Aminotransfer (ALT/SGP 21 U/L (12-78); Albumin, Blood 2.5 g/dL (3.4-5.0); Albumin/Globulin Ratio 1.1 (0.8-1.8); Alk Phos 70 U/L (50-136); Anion Gap 2 mmol/L (6-16); Aspartate Aminotrans (AST/SGOT 27 U/L (12-37); Bilirubin, Total 0.3 mg/dL (0.1-1.0); Blood Urea Nitrogen 11 mg/dL (8-24); CO2, Blood 31 mmol/L (21-32); Calcium, Blood 8.2 mg/dL (8.5-10.1); Chloride, Blood 109 mmol/L (98-108); Creatinine, Blood 0.58 mg/dL (0.40-1.00); Globulin, Blood 2.3 g/dL (2.2-4.0); Glomerular Filtration Rate >60 (60-); Glucose, Blood 93 mg/dL (70-99); Lactate Dehydrogenase (Ld),Bld 217 U/L (100-240); Potassium, Blood 3.3 mmol/L (3.5-5.5); Sodium, Blood 142 mmol/L (136-145); Total Protein, Blood 4.8 g/dL (6.4-8.2)
[2021-06-15 08:27] LABS: BASOPHILS ABSOLUTE MAN 0.02 K/mm3 (0.00-0.23); BASOPHILS PERCENT MAN 2 % (0-2); EOSINOPHILS ABSOLUTE MAN 0.05 K/mm3 (0.00-0.68); EOSINOPHILS PERCENT MAN 4 % (0-6); LYMPHOCYTES ABSOLUTE MAN 0.38 K/mm3 (0.84-5.20); LYMPHOCYTES PERCENT MAN 28 % (21-46); MONOCYTES ABSOLUTE MAN 0.06 K/mm3 (0.16-1.47); MONOCYTES PERCENT MAN 5 % (4-13); MYELOCYTE ABSOLUTE MAN 0.01 K/mm3 (0.00-0.00); MYELOCYTE PERCENT MAN 1 % (0-0); NEUTROPHILS ABSOLUTE MAN 0.81 K/mm3 (1.96-9.15); SEG NEUTROPHILS PERCENT MAN 60 % (41-73); TOTAL CELLS COUNTED 100
== END 2021-06-15 13:03 | disposition home or self-care (01) ==
LOC: ATC 00:35
PROVIDERS: Internal Medicine Hematology & Oncology
DX: D64.9 Anemia, unspecified (principal); C91.02 Acute lymphoblastic leukemia, in relapse; Z91.048 Other nonmedicinal substance allergy status
CPT/HCPCS: 36430; 36591; 80053; 83615; 85025; 86850; 86900; 86901; 86922; A9270; J1642; J7050; P9037; P9040

== ENCOUNTER 2021-06-18 07:15 | Day surgery (SDC) | payer BC ==
[2021-06-18 08:44] LABS: BASOPHILS ABSOLUTE AUTO 0.01 K/mm3 (0.00-0.23); BASOPHILS PERCENT AUTO 1 % (0-2); EOSINOPHILS ABSOLUTE AUTO 0.03 K/mm3 (0.00-0.68); EOSINOPHILS PERCENT AUTO 2 % (0-6); Hemoglobin 7.2 g/dL (11.5-16.0); Mean Platelet Volume 12.2 fL (9.1-12.4); White Blood Cell Count 1.64 K/mm3 (4.00-11.30)
[2021-06-18 08:47] LABS: Hematocrit 22.5 % (33.0-51.0); IMMATURE GRAN ABSOLUTE AUTO 0.04 K/mm3 (0.00-0.10); IMMATURE GRAN PERCENT AUTO 2 % (0-1); LYMPHOCYTES ABSOLUTE AUTO 0.44 K/mm3 (0.84-5.20); LYMPHOCYTES PERCENT AUTO 27 % (21-46); MONOCYTES ABSOLUTE AUTO 0.17 K/mm3 (0.16-1.47); MONOCYTES PERCENT AUTO 10 % (4-13); Mean Corpuscular Volume 103 fL (80-100); NEUTROPHILS ABSOLUTE AUTO 0.95 K/mm3 (1.96-9.15); NEUTROPHILS PERCENT AUTO 58 % (41-73); Red Blood Cell Count 2.18 M/mm3 (3.80-5.20)
[2021-06-18 08:50] LABS: Platelet Count 21 K/mm3 (150-400)
[2021-06-18 09:13] LABS: Alanine Aminotransfer (ALT/SGP 25 U/L (12-78); Albumin, Blood 2.6 g/dL (3.4-5.0); Alk Phos 69 U/L (50-136); Anion Gap 3 mmol/L (6-16); Aspartate Aminotrans (AST/SGOT 24 U/L (12-37); Bilirubin, Total 0.4 mg/dL (0.1-1.0); Blood Urea Nitrogen 13 mg/dL (8-24); Bun/Creatinine Ratio 21.4 (12.0-20.0); CO2, Blood 31 mmol/L (21-32); Calcium, Blood 8.6 mg/dL (8.5-10.1); Chloride, Blood 109 mmol/L (98-108); Creatinine, Blood 0.61 mg/dL (0.40-1.00); Globulin, Blood 2.5 g/dL (2.2-4.0); Glomerular Filtration Rate >60 (60-); Glucose, Blood 89 mg/dL (70-99); Potassium, Blood 3.6 mmol/L (3.5-5.5); Sodium, Blood 143 mmol/L (136-145); Total Protein, Blood 5.1 g/dL (6.4-8.2)
[2021-06-23 02:08] LABS: (LD) FRACTION 1 22 % (17-32); (LD) FRACTION 2 35 % (25-40); (LD) FRACTION 3 22 % (17-27); (LD) FRACTION 4 11 % (5-13); (LD) FRACTION 5 10 % (4-20); LDH 228 IU/L (119-226)
== END 2021-06-18 07:58 | disposition home or self-care (01) ==
LOC: ATC 07:15
PROVIDERS: Internal Medicine Hematology & Oncology
DX: D64.9 Anemia, unspecified (principal); C91.02 Acute lymphoblastic leukemia, in relapse; K21.9 Gastro-esophageal reflux disease without esophagitis; Z92.21 Personal history of antineoplastic chemotherapy; Z88.8 Allergy status to other drugs, medicaments and biological substances; Z91.048 Other nonmedicinal substance allergy status; Z94.81 Bone marrow transplant status
CPT/HCPCS: 36591; 80053; 83615; 83625; 85025; J1642

== ENCOUNTER 2021-06-19 08:54 | Day surgery (SDC) | payer BC | END 2021-06-19 11:56 | disposition home or self-care (01) | LOC: ATC 08:54 | DX: D64.9 Anemia, unspecified (principal); C91.02 Acute lymphoblastic leukemia, in relapse; K21.9 Gastro-esophageal reflux disease without esophagitis; Z88.8 Allergy status to other drugs, medicaments and biological substances; Z91.048 Other nonmedicinal substance allergy status; Z94.81 Bone marrow transplant status; Z92.21 Personal history of antineoplastic chemotherapy | CPT/HCPCS: 36430; 86850; 86900; 86901; 86920; A9270; J1642; J7050; P9040 ==

== ENCOUNTER 2021-06-22 01:53 | Day surgery (SDC) | payer BC ==
[2021-06-22 08:32] LABS: Hemoglobin 6.5 g/dL (11.5-16.0); Mean Platelet Volume 10.8 fL (9.1-12.4); White Blood Cell Count 2.21 K/mm3 (4.00-11.30)
[2021-06-22 08:43] LABS: Hematocrit 20.7 % (33.0-51.0); Mean Corpuscular HGB 32.5 pg (26.0-34.0); Mean Corpuscular HGB Conc 31.4 g/dL (31.5-36.5); Mean Corpuscular Volume 104 fL (80-100)
[2021-06-22 08:44] LABS: Platelet Count 23 K/mm3 (150-400)
[2021-06-22 08:51] LABS: Alanine Aminotransfer (ALT/SGP 26 U/L (12-78); Albumin, Blood 2.8 g/dL (3.4-5.0); Albumin/Globulin Ratio 1.2 (0.8-1.8); Alk Phos 73 U/L (50-136); Anion Gap 5 mmol/L (6-16); Aspartate Aminotrans (AST/SGOT 23 U/L (12-37); Bilirubin, Total 0.2 mg/dL (0.1-1.0); Blood Urea Nitrogen 16 mg/dL (8-24); Bun/Creatinine Ratio 24.8 (12.0-20.0); CO2, Blood 31 mmol/L (21-32); Calcium, Blood 7.9 mg/dL (8.5-10.1); Chloride, Blood 105 mmol/L (98-108); Creatinine, Blood 0.65 mg/dL (0.40-1.00); Globulin, Blood 2.3 g/dL (2.2-4.0); Glomerular Filtration Rate >60 (60-); Glucose, Blood 97 mg/dL (70-99); Lactate Dehydrogenase (Ld),Bld 186 U/L (100-240); Potassium, Blood 3.3 mmol/L (3.5-5.5); Sodium, Blood 141 mmol/L (136-145); Total Protein, Blood 5.1 g/dL (6.4-8.2)
[2021-06-22 09:08] LABS: BASOPHILS ABSOLUTE MAN 0.02 K/mm3 (0.00-0.23); BASOPHILS PERCENT MAN 1 % (0-2); EOSINOPHILS ABSOLUTE MAN 0.08 K/mm3 (0.00-0.68); EOSINOPHILS PERCENT MAN 4 % (0-6); LYMPHOCYTES ABSOLUTE MAN 0.72 K/mm3 (0.84-5.20); LYMPHOCYTES PERCENT MAN 33 % (21-46); MONOCYTES ABSOLUTE MAN 0.11 K/mm3 (0.16-1.47); MONOCYTES PERCENT MAN 5 % (4-13); NEUTROPHILS ABSOLUTE MAN 1.25 K/mm3 (1.96-9.15); SEG NEUTROPHILS PERCENT MAN 57 % (41-73); TOTAL CELLS COUNTED 100
== END 2021-06-22 13:21 | disposition home or self-care (01) ==
LOC: ATC 01:53 → LAB 01:53 → ATC 07:30
PROVIDERS: Internal Medicine Hematology & Oncology
DX: D64.81 Anemia due to antineoplastic chemotherapy (principal); C91.02 Acute lymphoblastic leukemia, in relapse; K21.9 Gastro-esophageal reflux disease without esophagitis; Z94.81 Bone marrow transplant status; Z88.8 Allergy status to other drugs, medicaments and biological substances; Z91.048 Other nonmedicinal substance allergy status; Z92.21 Personal history of antineoplastic chemotherapy
CPT/HCPCS: 36430; 36591; 80053; 83615; 85025; 86850; 86900; 86901; 86922; A9270; J1642; J7050; P9040

== ENCOUNTER 2021-07-08 00:42 | Day surgery (SDC) | payer BC ==
[2021-07-07 11:07] LABS: BASOPHILS ABSOLUTE AUTO 0.01 K/mm3 (0.00-0.23); BASOPHILS PERCENT AUTO 0 % (0-2); EOSINOPHILS ABSOLUTE AUTO 0.03 K/mm3 (0.00-0.68); EOSINOPHILS PERCENT AUTO 1 % (0-6); Hemoglobin 7.4 g/dL (11.5-16.0); IMMATURE GRAN ABSOLUTE AUTO 0.01 K/mm3 (0.00-0.10); IMMATURE GRAN PERCENT AUTO 0 % (0-1); LYMPHOCYTES ABSOLUTE AUTO 0.31 K/mm3 (0.84-5.20); LYMPHOCYTES PERCENT AUTO 12 % (21-46); MONOCYTES ABSOLUTE AUTO 0.16 K/mm3 (0.16-1.47); MONOCYTES PERCENT AUTO 6 % (4-13); Mean Corpuscular HGB 33.2 pg (26.0-34.0); Mean Corpuscular HGB Conc 32.2 g/dL (31.5-36.5); Mean Corpuscular Volume 103 fL (80-100); Mean Platelet Volume 11.5 fL (9.1-12.4); NEUTROPHILS ABSOLUTE AUTO 1.97 K/mm3 (1.96-9.15); NEUTROPHILS PERCENT AUTO 79 % (41-73); RDW Coefficient Variation 22.5 % (11.7-14.2); RDW Standard Deviation 82.3 fL (35.1-46.3); Red Blood Cell Count 2.23 M/mm3 (3.80-5.20); White Blood Cell Count 2.49 K/mm3 (4.00-11.30)
[2021-07-07 11:26] LABS: Alanine Aminotransfer (ALT/SGP 25 U/L (12-78); Albumin, Blood 2.4 g/dL (3.4-5.0); Albumin/Globulin Ratio 1.1 (0.8-1.8); Alk Phos 54 U/L (50-136); Anion Gap 3 mmol/L (6-16); Aspartate Aminotrans (AST/SGOT 20 U/L (12-37); Bilirubin, Total 0.3 mg/dL (0.1-1.0); Blood Urea Nitrogen 13 mg/dL (8-24); Bun/Creatinine Ratio 21.6 (12.0-20.0); CO2, Blood 35 mmol/L (21-32); Chloride, Blood 105 mmol/L (98-108); Globulin, Blood 2.2 g/dL (2.2-4.0); Glomerular Filtration Rate >60 (60-); Glucose, Blood 128 mg/dL (70-99); Lactate Dehydrogenase (Ld),Bld 157 U/L (100-240); Potassium, Blood 3.8 mmol/L (3.5-5.5); Sodium, Blood 143 mmol/L (136-145); Total Protein, Blood 4.6 g/dL (6.4-8.2)
[2021-07-07 11:52] LABS: Platelet Count 20 K/mm3 (150-400)
== END 2021-07-08 09:15 | disposition home or self-care (01) ==
LOC: ATC 00:42 → EDSTATUS 07:30 → ATC 07:30
PROVIDERS: Internal Medicine Hematology & Oncology
DX: D61.818 Other pancytopenia (principal); K21.9 Gastro-esophageal reflux disease without esophagitis; Z88.8 Allergy status to other drugs, medicaments and biological substances; Z91.048 Other nonmedicinal substance allergy status; Z94.81 Bone marrow transplant status; Z85.6 Personal history of leukemia
CPT/HCPCS: 36415; 36430; 80053; 83615; 85025; 86850; 86900; 86901; A9270; J1642; J7050; P9053

== ENCOUNTER 2021-07-11 01:37 | Day surgery (SDC) | payer BC ==
[2021-07-09 14:45] LABS: Hematocrit 19.2 % (33.0-51.0); Mean Corpuscular HGB 33.7 pg (26.0-34.0); Mean Corpuscular HGB Conc 31.3 g/dL (31.5-36.5); Mean Platelet Volume 10.7 fL (9.1-12.4); RDW Coefficient Variation 24.6 % (11.7-14.2); RDW Standard Deviation 91.7 fL (35.1-46.3); Red Blood Cell Count 1.78 M/mm3 (3.80-5.20); White Blood Cell Count 2.77 K/mm3 (4.00-11.30)
[2021-07-09 14:48] LABS: Mean Corpuscular Volume 108 fL (80-100)
[2021-07-09 14:53] LABS: Platelet Count 38 K/mm3 (150-400)
[2021-07-09 16:04] LABS: BAND PERCENT MAN 1 % (0-8); BASOPHILS PERCENT MAN 0 % (0-2); EOSINOPHILS ABSOLUTE MAN 0.05 K/mm3 (0.00-0.68); EOSINOPHILS PERCENT MAN 2 % (0-6); LYMPHOCYTES ABSOLUTE MAN 0.33 K/mm3 (0.84-5.20); LYMPHOCYTES PERCENT MAN 12 % (21-46); MONOCYTES ABSOLUTE MAN 0.11 K/mm3 (0.16-1.47); MONOCYTES PERCENT MAN 4 % (4-13); NEUTROPHILS ABSOLUTE MAN 2.27 K/mm3 (1.96-9.15); SEG NEUTROPHILS PERCENT MAN 81 % (41-73); TOTAL CELLS COUNTED 100
[2021-07-10 14:28] LABS: Alanine Aminotransfer (ALT/SGP 23 U/L (12-78); Albumin, Blood 2.6 g/dL (3.4-5.0); Alk Phos 58 U/L (50-136); Anion Gap 3 mmol/L (6-16); Aspartate Aminotrans (AST/SGOT 22 U/L (12-37); Bilirubin, Total 0.3 mg/dL (0.1-1.0); Blood Urea Nitrogen 13 mg/dL (8-24); Bun/Creatinine Ratio 20.2 (12.0-20.0); CO2, Blood 35 mmol/L (21-32); Calcium, Blood 8.9 mg/dL (8.5-10.1); Chloride, Blood 103 mmol/L (98-108); Creatinine, Blood 0.64 mg/dL (0.40-1.00); Globulin, Blood 2.6 g/dL (2.2-4.0); Glomerular Filtration Rate >60 (60-); Glucose, Blood 93 mg/dL (70-99); Lactate Dehydrogenase (Ld),Bld 163 U/L (100-240); Magnesium, Blood 2.1 mg/dL (1.6-2.4); Phosphorus, Blood 3.8 mg/dL (2.5-4.9); Sodium, Blood 141 mmol/L (136-145); Total Protein, Blood 5.2 g/dL (6.4-8.2); Uric Acid, Blood 5.2 mg/dL (2.6-6.0)
--- NOTE | 2021-07-10 14:47 | NUR ---
LAB RESULTS FAXED TO DR STEPHENS AT [facility] PER ORDER
== END 2021-07-11 23:50 | disposition home or self-care (01) ==
LOC: ATC 01:37
PROVIDERS: Internal Medicine Hematology & Oncology; Physician Assistant
DX: C91.02 Acute lymphoblastic leukemia, in relapse (principal); K21.9 Gastro-esophageal reflux disease without esophagitis; Z88.8 Allergy status to other drugs, medicaments and biological substances; Z94.81 Bone marrow transplant status; Z92.21 Personal history of antineoplastic chemotherapy
CPT/HCPCS: 36415; 36430; 80053; 83615; 83735; 84100; 84550; 85025; 86850; 86900; 86901; 86922; A9270; J1642; J7050; P9040; P9053

== ENCOUNTER 2021-07-28 08:00 | Day surgery (SDC) | payer BC ==
[2021-07-27 15:35] LABS: BASOPHILS PERCENT AUTO 0 % (0-2); EOSINOPHILS PERCENT AUTO 0 % (0-6); IMMATURE GRAN ABSOLUTE AUTO 0.14 K/mm3 (0.00-0.10); IMMATURE GRAN PERCENT AUTO 5 % (0-1); LYMPHOCYTES PERCENT AUTO 13 % (21-46); MONOCYTES ABSOLUTE AUTO 0.09 K/mm3 (0.16-1.47); MONOCYTES PERCENT AUTO 3 % (4-13); Mean Platelet Volume 11.9 fL (9.1-12.4); NEUTROPHILS ABSOLUTE AUTO 2.42 K/mm3 (1.96-9.15); NEUTROPHILS PERCENT AUTO 79 % (41-73); NRBC ABSOLUTE 0.06 K/mm3 (0.00-0.02); White Blood Cell Count 3.05 K/mm3 (4.00-11.30)
[2021-07-27 15:59] LABS: Alanine Aminotransfer (ALT/SGP 33 U/L (12-78); Albumin, Blood 2.7 g/dL (3.4-5.0); Albumin/Globulin Ratio 1.1 (0.8-1.8); Alk Phos 61 U/L (50-136); Anion Gap 8 mmol/L (6-16); Aspartate Aminotrans (AST/SGOT 21 U/L (12-37); Bilirubin, Total 0.6 mg/dL (0.1-1.0); Blood Urea Nitrogen 13 mg/dL (8-24); Bun/Creatinine Ratio 23.6 (12.0-20.0); CO2, Blood 31 mmol/L (21-32); Calcium, Blood 7.6 mg/dL (8.5-10.1); Chloride, Blood 97 mmol/L (98-108); Creatinine, Blood 0.55 mg/dL (0.40-1.00); Globulin, Blood 2.4 g/dL (2.2-4.0); Glomerular Filtration Rate >60 (60-); Glucose, Blood 178 mg/dL (70-99); Potassium, Blood 3.2 mmol/L (3.5-5.5); Sodium, Blood 136 mmol/L (136-145); Total Protein, Blood 5.1 g/dL (6.4-8.2)
[2021-07-27 16:00] LABS: Red Blood Cell Count 1.12 M/mm3 (3.80-5.20)
[2021-07-27 16:01] LABS: Mean Corpuscular HGB 40.2 pg (26.0-34.0); Mean Corpuscular HGB Conc 30.6 g/dL (31.5-36.5); Mean Corpuscular Volume 131 fL (80-100)
[2021-07-27 16:05] LABS: Hematocrit 14.7 % (33.0-51.0); Hemoglobin 4.5 g/dL (11.5-16.0); Platelet Count 46 K/mm3 (150-400)
== END 2021-07-28 23:59 | disposition home or self-care (01) ==
LOC: ATC 08:00
PROVIDERS: Internal Medicine Hematology & Oncology
DX: C91.02 Acute lymphoblastic leukemia, in relapse (principal); D64.81 Anemia due to antineoplastic chemotherapy; K21.9 Gastro-esophageal reflux disease without esophagitis; Z79.899 Other long term (current) drug therapy
CPT/HCPCS: 36430; 36591; 80053; 85025; 86850; 86900; 86901; 86920; A9270; J1642; J7050; P9040

== ENCOUNTER 2021-07-30 16:34 | Day surgery (SDC) | payer BC ==
--- NOTE | 2021-06-29 08:59 | NUR ---
PT WILL NOT BE IN TODAY, SHE IS AN INPATIENT AT [facility] PER HER MD'S OFFICE.
[2021-07-30 11:18] LABS: Hemoglobin 6.7 g/dL (11.5-16.0); NRBC ABSOLUTE 0.05 K/mm3 (0.00-0.02); NRBC Auto 1.8 /100 WBC (0.0-0.2); White Blood Cell Count 2.78 K/mm3 (4.00-11.30)
[2021-07-30 11:21] LABS: Hematocrit 20.4 % (33.0-51.0); Mean Corpuscular HGB 30.5 pg (26.0-34.0); Mean Corpuscular HGB Conc 32.8 g/dL (31.5-36.5); Mean Corpuscular Volume 93 fL (80-100)
[2021-07-30 11:23] LABS: Mean Platelet Volume 11.9 fL (9.1-12.4); Platelet Count 33 K/mm3 (150-400)
[2021-07-30 11:27] LABS: Alanine Aminotransfer (ALT/SGP 33 U/L (12-78); Albumin, Blood 2.5 g/dL (3.4-5.0); Albumin/Globulin Ratio 1.1 (0.8-1.8); Alk Phos 54 U/L (50-136); Anion Gap 4 mmol/L (6-16); Aspartate Aminotrans (AST/SGOT 21 U/L (12-37); Bilirubin, Total 0.6 mg/dL (0.1-1.0); Blood Urea Nitrogen 12 mg/dL (8-24); Bun/Creatinine Ratio 24.5 (12.0-20.0); CO2, Blood 36 mmol/L (21-32); Calcium, Blood 8.2 mg/dL (8.5-10.1); Chloride, Blood 97 mmol/L (98-108); Creatinine, Blood 0.49 mg/dL (0.40-1.00); Globulin, Blood 2.2 g/dL (2.2-4.0); Glomerular Filtration Rate >60 (60-); Glucose, Blood 106 mg/dL (70-99); Potassium, Blood 3.2 mmol/L (3.5-5.5); Sodium, Blood 137 mmol/L (136-145); Total Protein, Blood 4.7 g/dL (6.4-8.2)
[2021-07-30 11:31] LABS: BAND PERCENT MAN 11 % (0-8); BASOPHILS PERCENT MAN 0 % (0-2); EOSINOPHILS PERCENT MAN 0 % (0-6); LYMPHOCYTES ABSOLUTE MAN 0.41 K/mm3 (0.84-5.20); LYMPHOCYTES PERCENT MAN 15 % (21-46); MONOCYTES ABSOLUTE MAN 0.02 K/mm3 (0.16-1.47); MONOCYTES PERCENT MAN 1 % (4-13); NEUTROPHILS ABSOLUTE MAN 2.33 K/mm3 (1.96-9.15); SEG NEUTROPHILS PERCENT MAN 73 % (41-73); TOTAL CELLS COUNTED 100
--- NOTE | 2021-08-01 09:33 | NUR ---
Chart note dated 06/29/21 @ 0859 was written in error.
== END 2021-07-30 23:05 | disposition home or self-care (01) ==
LOC: ATC 16:34
PROVIDERS: Internal Medicine Hematology & Oncology
DX: C91.02 Acute lymphoblastic leukemia, in relapse (principal); Z94.81 Bone marrow transplant status; Z94.84 Stem cells transplant status
CPT/HCPCS: 36591; 80053; 85025; 86850; 86900; 86901; 86920